=== PATIENT | male | born 1965 | race Caucasian/White ===

== ENCOUNTER → 2018-08-13 11:31 | Outpatient (CLI) | payer OTHER, MEDICAID, SELFPAY ==
--- NOTE | 2018-08-13 12:38 | DI.RAD.S_ITS ---
PROCEDURE: XR SHOULDER RT MIN 2V INDICATIONS: Right shoulder pain suspect osteoarthritis TECHNIQUE: 3 views of the shoulder were acquired. COMPARISON: None. FINDINGS: Bones: No fractures or dislocations. No suspicious bony lesions. Visualized ribs appear intact. Mild acromioclavicular joint and glenohumeral joint osteoarthritis is seen. Soft tissues: No suspicious soft tissue calcifications. IMPRESSION: Mild right shoulder joint osteoarthritis. Dictated by: Pascual Roa M.D. on 08/13/2018 at 14:30 Approved by: Pascual Roa M.D. on 08/13/2018 at 14:34
== END ==
PROVIDERS: Family Provider Physician Assistant; PCP Physician Assistant; Visit Provider Physician Assistant
DX: M19.011 Primary osteoarthritis, right shoulder (principal)
CPT/HCPCS: 73030

== ENCOUNTER 2019-02-18 11:15 | Outpatient (RCR) | payer OTHER, MEDICAID, SELFPAY ==
--- NOTE | 2018-09-29 10:30 | PT.OIE ---
Current Diagnoses Pain in right shoulder (09/29/18) Pain in left shoulder (09/29/18) Weakness (09/29/18) Other injury of muscle(s) and tendon(s) of the rotator cuff of right shoulder, initial encounter (09/29/18) Strain of muscle, fascia and tendon of long head of biceps, right arm, initial encounter (09/29/18) Past Medical History (Last Updated 09/29/18 @ 16:32 by Dona Morley, PT) Back pain (Acute) Carpal tunnel syndrome on both sides (Acute) Seizure (Acute) Past Surgical History (Last Updated 09/29/18 @ 16:32 by Dona Morley, PT) History of carpal tunnel release of both wrists (Acute) Provider Visit Care Team Role Provider Type Jessica Tuttle PA-C Attending Provider Advanced Database Technician Family Provider Primary Care Provider Specialty: Medical Address: [address] [place] [address], [facility] Email: [email or web address] Physical Therapy Initial Evaluation PT-OP-A Visit Information Start: 09/29/18 16:27 Freq: Status: Active Protocol: Document 09/29/18 10:30 DLM (Rec: 09/29/18 16:30 DLM [id number]) Out-Patient Physical Therapy Visit Information Visit Information Visit Type Initial Evaluation Visit Note 05/28 authorized Visit Start Time 10:30 Visit Stop Time 11:25 Total Visit Minutes 55 Visit Number 1 Number of FISH ROE TECHNICIAN Visits 0 Evaluation Information Evaluation Date 09/29/18 Precautions Precautions hx of back pain, bilateral carpal tunnel sx and seizures PT-OP-B Current Condition Start: 09/29/18 16:27 Freq: Status: Active Protocol: Document 09/29/18 10:30 DLM (Rec: 09/30/18 08:40 DLM [id number]) Current Condition History of Current Condition Onset Date gradual Current Complaints Bilateral shoulder pain with right worse than left History of Current Condition He reports sudden onset right shoulder pain and about two weeks later left shoulder pain . He has no known injury. The pain interferes with functional use of his arms. He has pain that affects his sleep. Prior Treatments and Tests x-rays showed mild arthritis Future Testing and Treatments Planned none reported Treatment Goals Patient/Caregiver Goals resolve his shoulder pain Prior Functional Status Baseline Function- ADL's Independent Baseline Function- Mobility Independent Baseline Function- Gait Independent without device, community distances Baseline Function- Work/School getting his bachelor degree online, desktop computer Baseline Function- Recreation/Hobbies Stretches for 45 min, 1 hr cardio workout, walking for 1. 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 Current Functional Impairments (Reported) Functional Limitations- ADL's Independent with pain in bilateral shoulders Functional Limitations- Mobility/Gait no changes reported Functional Limitations- Recreation/ pain with fencing especially Hobbies with reaching out motion Personal Factors Other Personal Factors That May Effect lost a lot of weight and Therapy/Recovery exercises now to keep the weight off PT-OP-C Subjective Start: 09/29/18 16:27 Freq: Status: Active Protocol: Document 09/29/18 10:30 DLM (Rec: 09/30/18 08:33 DL [id number]) Patient Questionnaires Quick Dash- Upper Extremity Quick Dash UE Score 50 Quick Dash UE Impairment 40 to 59% Impaired (Score 40- 59) OP-PT Pain Assessment Location Upper Posterior Back Intensity 6 Scale Used Numeric (1 - 10) Description Aching Frequency Frequent Posterior Neck Intensity 6 Scale Used Numeric (1 - 10) Description Aching Frequency Frequent Left Shoulder Intensity 6 Scale Used Numeric (1 - 10) Description Aching Frequency Constant Pain Aggravating Factors Activity Other Pain Aggravating Factors leaning on arm, sidelying, reaching up and back Pain Alleviating Factors Rest Right Shoulder Pain Location Details also around right scapula Intensity 6 Scale Used Numeric (1 - 10) Description Aching Frequency Constant Other Pain Aggravating Factors leaning on shoulder, sidelying , reaching arm up and back, fencing reach out Pain Alleviating Factors Rest Home Pain Medication Use Pain Medications Used Yes: Ibuprofen prescribed by physician Pain Behaviors Pain Behaviors Facial Grimacing Wincing Comments Pain Comments Right handed PT-OP-F Manual Assessment Start: 09/29/18 16:27 Freq: Status: Active Protocol: Document 09/29/18 10:30 DLM (Rec: 09/30/18 08:56 DL [id number]) Manual Assessments Soft Tissue Assessment Soft Tissue Mobility Assessment sub-occipital tightness PT-OP-H Neuro Start: 09/29/18 16:27 Freq: Status: Active Protocol: Document 09/29/18 10:30 DLM (Rec: 09/30/18 08:56 DLM [id number]) Sensation Evaluation Gross Sensation Gross Sensation WNL PT-OP-J Posture/Palpation/Skin Start: 09/29/18 16:27 Freq: Status: Active Protocol: Document 09/29/18 10:30 DLM (Rec: 09/30/18 08:47 DLM [id number]) Posture Evaluation Position Sitting Evaluation View Anterior Head/C-Spine Posture Forward Head Shoulder Posture (L) Rounded (R) Rounded Pelvis Posture Posterior Tilted Weight Distribution Balanced Palpation Assessment Location Three Palpation Location left shoulder area Palpation Findings Soft Tissue Tightness Tenderness Palpation Details mild tenderness right biceps tendon anterior shoulder, lateral bursa tenderness, tightness and tender left upper trap, mild tenderness left posterior shoulder Two Palpation Location Right biceps Palpation Findings Soft Tissue Tightness Tenderness Palpation Details tender with positive signs of tendonitis anterior shoulder, tightness with mass effect mid bicep, entire length of biceps tender to touch One Palpation Location Right shoulder area Palpation Findings Soft Tissue Tightness Tenderness Trigger Point Palpation Details tender AC joint, upper trap tender and tight, rhomboids tender and tight, scalenes tender PT-OP-K Range of Motion Start: 09/29/18 16:27 Freq: Status: Active Protocol: Document 09/29/18 10:30 DLM (Rec: 09/30/18 08:51 DLM [id number]) Cervical Spine Range of Motion Cervical Spine Active Percentage Testing Position Sitting Flexion 100 Extension 100 Rotation Left 75 Rotation Right 90 Lateral Flexion Left 50 Lateral Flexion Right 75 ROM Limitations Soft Tissue Tightness Comments no pain reported, only tightness Shoulder Goniometric Range of Motion Shoulder Measured in Degrees Right Active Shoulder ROM WFL Yes Testing Position Sitting Left Active Shoulder ROM WFL Yes Testing Position Sitting Shoulder ROM Limitations Shoulder ROM Limitations Pain Comments pain with right shoulder IR behind back, crepitus with left shoulder ER, positive for painful arc on right but negative on left PT-OP-L Special Tests Start: 09/29/18 16:27 Freq: Status: Active Protocol: Document 09/29/18 10:30 DLM (Rec: 09/30/18 08:53 DLM [id number]) Special Tests Shoulder Special Tests Drop Arm Rotator Cuff Test Results negative bilaterally Elevation Impingement Test Results positive on right, negative on left Apprehension Test Test Results negative bilaterally PT-OP-M Strength Start: 09/29/18 16:27 Freq: Status: Active Protocol: Document 09/29/18 10:30 DLM (Rec: 09/30/18 08:55 DLM [id number]) Shoulder Strength Shoulder Manual Muscle Testing Right Flexion 4 Good Extension 5 Normal Abduction (C5) 4 Good Adduction 5 Normal External Rotation 5 Normal Internal Rotation 5 Normal Reason Not Measured Pain Comments pain with resisted flexion and abduction Left Flexion 4+ Good+ Extension 5 Normal Abduction (C5) 5 Normal Adduction 5 Normal External Rotation 5 Normal Internal Rotation 5 Normal Comments pain with resisted flexion Elbow/Forearm Strength Elbow and Forearm Manual Muscle Testing Right Flexion (C6) 5 Normal Extension (C7) 5 Normal Reason Not Measured Pain Comments pain with resisted elbow flexion Left Flexion (C6) 5 Normal Extension (C7) 5 Normal Reason Not Measured Pain Comments pain with resisted elbow flexion PT-OP-Q Treatments Start: 09/29/18 16:27 Freq: Status: Active Protocol: Document 09/29/18 10:30 DLM (Rec: 09/30/18 08:58 DLM [id number]) Self-Care/Home Management Treatment Education Patient Education Home Exercise Program Caregiver Education his was present for evaluation Other Education stop biceps exercises at home, avoid painful shoulder motions, avoid activities with shoulder at 90 degrees of elevation to minimize impingement, ice shoulders to manage pain PT-OP-T Assessment and Plan Start: 09/29/18 16:27 Freq: Status: Active Protocol: Document 09/29/18 10:30 DLM (Rec: 09/30/18 10:33 DLM [id number]) Physical Therapy Assessment Rehab Potential Rehabilitation Potential Good Evaluation Complexity Number of Personal Factors/Comorbidities 3 or More Number of Body Systems Impaired 3 Clinical Presentation at Evaluation Evolving Impairments Impairments Activity Tolerance Functional Activities Pain Posture ROM Soft Tissue Mobility Strength Goals Four Impairment Impaired functional use of shoulders, Quick Dash=50 Short Term Goal (STG) Quick Dash score improvement to <25 STG Duration 4 weeks Nursing Services Manager Goal (LTG) Quick Dash score improvement to <10 LTG Duration 8 weeks Three Impairment Positive impingement signs right shoulder Short Term Goal (STG) Resolve impingement signs right shoulder STG Duration 6 weeks Mcc Goal (LTG) Demonstrate erect posture and improved postural awareness LTG Duration 8 weeks Two Impairment Impaired Strength Short Term Goal (STG) Increase his shoulder strength to at least 4+/5 without pain STG Duration 4 weeks Nursing Services Manager Goal (LTG) Increase his bilateral shoulder strength to 5/5 without pain LTG Duration 8 weeks One Impairment Pain of 6/10 Short Term Goal (STG) Decrease his shoulder pain to less than or equal to 3/10 STG Duration 4 weeks Mcc Goal (LTG) Decrease shoulder pain to 0/10 with normal use LTG Duration 8 weeks Assessment Summary Assessment Jerson presents with bilateral shoulder pain with clinical signs of strain/sprain with right worse than left. He shows impingement signs right shoulder as well as significant biceps tendonitis. Left shoulder is negative for impingement but shows clinical signs of bursitis and biceps tendonitis. He reports no known injury so I suspect repetitive use and arthritis may be contributing factors to his pain. He has an extensive home exercise routine that he routinely performs to help manage his weight and he started fencing about 8 weeks ago. He is a good candidate for skilled physical therapy to address his shoulder pain. Physical Therapy Plan Frequency and Duration Frequency of Treatment 2x/Week Duration of Treatment 8 weeks Plan of Care Start Date 09/29/18 Plan of Care End Date 11/24/18 Therapeutic Interventions Therapeutic Interventions Home Exercise Program Joint Mobilizations Manual Therapy Patient/Caregiver Education Self-Care/Home Management Soft Tissue Mobilization Taping Therapeutic Activities Therapeutic Exercises Modalities Cold Pack/Ice Massage Electric Stimulation Hot Packs Ultrasound Next Visit Focus/Plan Next Note Type Treatment Note Next Visit Plan Ultrasound trials, STM for right biceps, rotator cuff exercises, continue review of home exercise routine
--- NOTE | 2018-10-01 10:30 | PT.OTN ---
Current Diagnoses Pain in right shoulder (10/01/18) Pain in left shoulder (10/01/18) Physical Therapy Treatment Note PT-OP-A Visit Information Start: 09/29/18 16:27 Freq: Status: Active Protocol: Document 10/01/18 10:30 DLM (Rec: 10/05/18 08:08 DLM [id number]) Out-Patient Physical Therapy Visit Information Visit Information Visit Type Treatment Note Visit Note 06/16 Visit Start Time 10:30 Visit Stop Time 11:15 Total Visit Minutes 45 Visit Number 2 Number of VISUAL COORDINATOR Visits 0 Evaluation Information Evaluation Date 09/29/18 Precautions Precautions hx of back pain, bilateral carpal tunnel sx and seizures PT-OP-B Current Condition Start: 09/29/18 16:27 Freq: Status: Active Protocol: Document 09/29/18 10:30 DLM (Rec: 09/30/18 08:40 DLM [id number]) Current Condition History of Current Condition Onset Date gradual Current Complaints Bilateral shoulder pain with right worse than left History of Current Condition He reports sudden onset right shoulder pain and about two weeks later left shoulder pain . He has no known injury. The pain interferes with functional use of his arms. He has pain that affects his sleep. Prior Treatments and Tests x-rays showed mild arthritis Future Testing and Treatments Planned none reported Treatment Goals Patient/Caregiver Goals resolve his shoulder pain Prior Functional Status Baseline Function- ADL's Independent Baseline Function- Mobility Independent Baseline Function- Gait Independent without device, community distances Baseline Function- Work/School getting his bachelor degree online, desktop computer Baseline Function- Recreation/Hobbies Stretches for 45 min, 1 hr cardio workout, walking for 1. 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 Current Functional Impairments (Reported) Functional Limitations- ADL's Independent with pain in bilateral shoulders Functional Limitations- Mobility/Gait no changes reported Functional Limitations- Recreation/ pain with fencing especially Hobbies with reaching out motion Personal Factors Other Personal Factors That May Effect lost a lot of weight and Therapy/Recovery exercises now to keep the weight off PT-OP-C Subjective Start: 09/29/18 16:27 Freq: Status: Active Protocol: Document 10/01/18 10:30 DLM (Rec: 10/05/18 08:09 DLM [id number]) OP-PT Subjective Patient Comments Patient Comments He brought his current home exercises Patient Reported Progress Same PT-OP-F Manual Assessment Start: 09/29/18 16:27 Freq: Status: Active Protocol: Document 09/29/18 10:30 DLM (Rec: 09/30/18 08:56 DLM [id number]) Manual Assessments Soft Tissue Assessment Soft Tissue Mobility Assessment sub-occipital tightness PT-OP-H Neuro Start: 09/29/18 16:27 Freq: Status: Active Protocol: Document 09/29/18 10:30 DLM (Rec: 09/30/18 08:56 DLM [id number]) Sensation Evaluation Gross Sensation Gross Sensation WNL PT-OP-J Posture/Palpation/Skin Start: 09/29/18 16:27 Freq: Status: Active Protocol: Document 09/29/18 10:30 DLM (Rec: 09/30/18 08:47 DLM [id number]) Posture Evaluation Position Sitting Evaluation View Anterior Head/C-Spine Posture Forward Head Shoulder Posture (L) Rounded (R) Rounded Pelvis Posture Posterior Tilted Weight Distribution Balanced Palpation Assessment Location Three Palpation Location left shoulder area Palpation Findings Soft Tissue Tightness Tenderness Palpation Details mild tenderness right biceps tendon anterior shoulder, lateral bursa tenderness, tightness and tender left upper trap, mild tenderness left posterior shoulder Two Palpation Location Right biceps Palpation Findings Soft Tissue Tightness Tenderness Palpation Details tender with positive signs of tendonitis anterior shoulder, tightness with mass effect mid bicep, entire length of biceps tender to touch One Palpation Location Right shoulder area Palpation Findings Soft Tissue Tightness Tenderness Trigger Point Palpation Details tender AC joint, upper trap tender and tight, rhomboids tender and tight, scalenes tender PT-OP-K Range of Motion Start: 09/29/18 16:27 Freq: Status: Active Protocol: Document 09/29/18 10:30 DLM (Rec: 09/30/18 08:51 DLM [id number]) Cervical Spine Range of Motion Cervical Spine Active Percentage Testing Position Sitting Flexion 100 Extension 100 Rotation Left 75 Rotation Right 90 Lateral Flexion Left 50 Lateral Flexion Right 75 ROM Limitations Soft Tissue Tightness Comments no pain reported, only tightness Shoulder Goniometric Range of Motion Shoulder Measured in Degrees Right Active Shoulder ROM WFL Yes Testing Position Sitting Left Active Shoulder ROM WFL Yes Testing Position Sitting Shoulder ROM Limitations Shoulder ROM Limitations Pain Comments pain with right shoulder IR behind back, crepitus with left shoulder ER, positive for painful arc on right but negative on left PT-OP-L Special Tests Start: 09/29/18 16:27 Freq: Status: Active Protocol: Document 09/29/18 10:30 DLM (Rec: 09/30/18 08:53 DLM [id number]) Special Tests Shoulder Special Tests Drop Arm Rotator Cuff Test Results negative bilaterally Elevation Impingement Test Results positive on right, negative on left Apprehension Test Test Results negative bilaterally PT-OP-M Strength Start: 09/29/18 16:27 Freq: Status: Active Protocol: Document 09/29/18 10:30 DLM (Rec: 09/30/18 08:55 DLM [id number]) Shoulder Strength Shoulder Manual Muscle Testing Right Flexion 4 Good Extension 5 Normal Abduction (C5) 4 Good Adduction 5 Normal External Rotation 5 Normal Internal Rotation 5 Normal Reason Not Measured Pain Comments pain with resisted flexion and abduction Left Flexion 4+ Good+ Extension 5 Normal Abduction (C5) 5 Normal Adduction 5 Normal External Rotation 5 Normal Internal Rotation 5 Normal Comments pain with resisted flexion Elbow/Forearm Strength Elbow and Forearm Manual Muscle Testing Right Flexion (C6) 5 Normal Extension (C7) 5 Normal Reason Not Measured Pain Comments pain with resisted elbow flexion Left Flexion (C6) 5 Normal Extension (C7) 5 Normal Reason Not Measured Pain Comments pain with resisted elbow flexion PT-OP-Q Treatments Start: 09/29/18 16:27 Freq: Status: Active Protocol: Document 10/01/18 10:30 DLM (Rec: 10/05/18 08:15 DLM [id number]) Therapeutic Exercises Supine Exercises 1 Supine Exercise Name Foam roll postural stretching Resistance passive Comments UE's at sides, T and over- head Standing Exercises 4 Standing Exercise Name Shoulder IR Side bilateral Resistance L2 exercise band Reps/Minutes 15 reps each side Comments one side at a time 3 Standing Exercise Name Shoulder ER Side bilateral Resistance L2 exercise band Reps/Minutes 15 reps each Comments one side at a time 2 Standing Exercise Name Rows Side bilateral Resistance L2 exercise band Reps/Minutes 15 reps 1 Standing Exercise Name shoulder extension Side bilateral Resistance L2 exercise band Reps/Minutes x 15 reps Self-Care/Home Management Treatment Education Patient Education Home Exercise Program Other Education reviewed his two binders of home exercises (stretching and strengthening). Requested pt avoid exercises that place shoulder at 90 degrees and avoid biceps exercises for now . Pt will follow-up with fencing sustainability coach for modifications of activities to manage his pain. PT-OP-R Modalities Start: 09/29/18 16:27 Freq: Status: Active Protocol: Document 10/01/18 10:30 DLM (Rec: 10/05/18 08:10 DLM [id number]) Ultrasound Therapy Treatment Right Shoulder Treatment Duration (minutes) 5 Patient Position Sitting Coupling Medium Ultrasound Gel Applicator Size (cm2) 5 Mode Setting Continuous Intensity Setting (w/cm2) 1.3 Left Shoulder Treatment Duration (minutes) 5 Patient Position Sitting Coupling Medium Ultrasound Gel Applicator Size (cm2) 5 Mode Setting Continuous Intensity Setting (w/cm2) 1.3 PT-OP-T Assessment and Plan Start: 09/29/18 16:27 Freq: Status: Active Protocol: Document 10/01/18 10:30 DLM (Rec: 10/05/18 15:06 DLM [id number]) Physical Therapy Assessment Goals Four Impairment Impaired functional use of shoulders, Quick Dash=50 Short Term Goal (STG) Quick Dash score improvement to <25 STG Duration 4 weeks Intermediate Goal (LTG) Quick Dash score improvement to <10 LTG Duration 8 weeks Three Impairment Positive impingement signs right shoulder Short Term Goal (STG) Resolve impingement signs right shoulder STG Duration 6 weeks Intermediate Goal (LTG) Demonstrate erect posture and improved postural awareness LTG Duration 8 weeks Two Impairment Impaired Strength Short Term Goal (STG) Increase his shoulder strength to at least 4+/5 without pain STG Duration 4 weeks Software Tools Engineer Goal (LTG) Increase his bilateral shoulder strength to 5/5 without pain LTG Duration 8 weeks One Impairment Pain of 6/10 Short Term Goal (STG) Decrease his shoulder pain to less than or equal to 3/10 STG Duration 4 weeks Intermediate Goal (LTG) Decrease shoulder pain to 0/10 with normal use LTG Duration 8 weeks Assessment Summary Assessment He tolerated treatment well this visit. No increased pain with his exercises. Improved posture with stretching. Pt has an extensive prior HEP with many exercises using UE musculature. Recommending pt avoid impingement positions and rest shoulders as he is able. Physical Therapy Plan Frequency and Duration Frequency of Treatment 2x/Week Duration of Treatment 8 weeks Plan of Care Start Date 09/29/18 Plan of Care End Date 11/24/18 Therapeutic Interventions Therapeutic Interventions Home Exercise Program Joint Mobilizations Manual Therapy Patient/Caregiver Education Self-Care/Home Management Soft Tissue Mobilization Taping Therapeutic Activities Therapeutic Exercises Modalities Cold Pack/Ice Massage Electric Stimulation Hot Packs Ultrasound Next Visit Focus/Plan Next Note Type Treatment Note Next Visit Plan start STM, assess response to US, written HEP
--- NOTE | 2018-10-06 10:30 | PT.OTN ---
Current Diagnoses Pain in right shoulder (10/06/18) Pain in left shoulder (10/06/18) Physical Therapy Treatment Note PT-OP-A Visit Information Start: 09/29/18 16:27 Freq: Status: Active Protocol: Document 10/06/18 10:30 DLM (Rec: 10/06/18 17:45 DLM [id number]) Out-Patient Physical Therapy Visit Information Visit Information Visit Type Treatment Note Visit Note 07/14 Visit Start Time 10:30 Visit Stop Time 11:15 Total Visit Minutes 45 Visit Number 3 Number of WIRE BOUND BOX MACHINE HELPER Visits 0 Evaluation Information Evaluation Date 09/29/18 Precautions Precautions hx of back pain, bilateral carpal tunnel sx and seizures PT-OP-B Current Condition Start: 09/29/18 16:27 Freq: Status: Active Protocol: Document 09/29/18 10:30 DLM (Rec: 09/30/18 08:40 DLM [id number]) Current Condition History of Current Condition Onset Date gradual Current Complaints Bilateral shoulder pain with right worse than left History of Current Condition He reports sudden onset right shoulder pain and about two weeks later left shoulder pain . He has no known injury. The pain interferes with functional use of his arms. He has pain that affects his sleep. Prior Treatments and Tests x-rays showed mild arthritis Future Testing and Treatments Planned none reported Treatment Goals Patient/Caregiver Goals resolve his shoulder pain Prior Functional Status Baseline Function- ADL's Independent Baseline Function- Mobility Independent Baseline Function- Gait Independent without device, community distances Baseline Function- Work/School getting his bachelor degree online, desktop computer Baseline Function- Recreation/Hobbies Stretches for 45 min, 1 hr cardio workout, walking for 1. 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 Current Functional Impairments (Reported) Functional Limitations- ADL's Independent with pain in bilateral shoulders Functional Limitations- Mobility/Gait no changes reported Functional Limitations- Recreation/ pain with fencing especially Hobbies with reaching out motion Personal Factors Other Personal Factors That May Effect lost a lot of weight and Therapy/Recovery exercises now to keep the weight off PT-OP-C Subjective Start: 09/29/18 16:27 Freq: Status: Active Protocol: Document 10/06/18 10:30 DLM (Rec: 10/06/18 17:45 DLM [id number]) OP-PT Subjective Patient Comments Patient Comments He will only be working on his footwork in fencing until his shoulder is better. He has been modifying his exercises at home to avoid painful positions with his shoulder. His pain is better. He has been icing his shoulders at home. Patient Reported Progress Improving OP-PT Pain Assessment Location Left Shoulder Pain Location Details at rest Intensity 0 Scale Used Numeric (1 - 10) Right Shoulder Pain Location Details at rest Intensity 0 Scale Used Numeric (1 - 10) Other Pain Aggravating Factors driving position Home Pain Medication Use Pain Medications Used Yes: Ibuprofen PT-OP-F Manual Assessment Start: 09/29/18 16:27 Freq: Status: Active Protocol: Document 09/29/18 10:30 DLM (Rec: 09/30/18 08:56 DLM [id number]) Manual Assessments Soft Tissue Assessment Soft Tissue Mobility Assessment sub-occipital tightness PT-OP-H Neuro Start: 09/29/18 16:27 Freq: Status: Active Protocol: Document 09/29/18 10:30 DLM (Rec: 09/30/18 08:56 DLM [id number]) Sensation Evaluation Gross Sensation Gross Sensation WNL PT-OP-J Posture/Palpation/Skin Start: 09/29/18 16:27 Freq: Status: Active Protocol: Document 09/29/18 10:30 DLM (Rec: 09/30/18 08:47 DLM [id number]) Posture Evaluation Position Sitting Evaluation View Anterior Head/C-Spine Posture Forward Head Shoulder Posture (L) Rounded (R) Rounded Pelvis Posture Posterior Tilted Weight Distribution Balanced Palpation Assessment Location Three Palpation Location left shoulder area Palpation Findings Soft Tissue Tightness Tenderness Palpation Details mild tenderness right biceps tendon anterior shoulder, lateral bursa tenderness, tightness and tender left upper trap, mild tenderness left posterior shoulder Two Palpation Location Right biceps Palpation Findings Soft Tissue Tightness Tenderness Palpation Details tender with positive signs of tendonitis anterior shoulder, tightness with mass effect mid bicep, entire length of biceps tender to touch One Palpation Location Right shoulder area Palpation Findings Soft Tissue Tightness Tenderness Trigger Point Palpation Details tender AC joint, upper trap tender and tight, rhomboids tender and tight, scalenes tender PT-OP-K Range of Motion Start: 09/29/18 16:27 Freq: Status: Active Protocol: Document 09/29/18 10:30 DLM (Rec: 09/30/18 08:51 DLM [id number]) Cervical Spine Range of Motion Cervical Spine Active Percentage Testing Position Sitting Flexion 100 Extension 100 Rotation Left 75 Rotation Right 90 Lateral Flexion Left 50 Lateral Flexion Right 75 ROM Limitations Soft Tissue Tightness Comments no pain reported, only tightness Shoulder Goniometric Range of Motion Shoulder Measured in Degrees Right Active Shoulder ROM WFL Yes Testing Position Sitting Left Active Shoulder ROM WFL Yes Testing Position Sitting Shoulder ROM Limitations Shoulder ROM Limitations Pain Comments pain with right shoulder IR behind back, crepitus with left shoulder ER, positive for painful arc on right but negative on left PT-OP-L Special Tests Start: 09/29/18 16:27 Freq: Status: Active Protocol: Document 09/29/18 10:30 DLM (Rec: 09/30/18 08:53 DLM [id number]) Special Tests Shoulder Special Tests Drop Arm Rotator Cuff Test Results negative bilaterally Elevation Impingement Test Results positive on right, negative on left Apprehension Test Test Results negative bilaterally PT-OP-M Strength Start: 09/29/18 16:27 Freq: Status: Active Protocol: Document 09/29/18 10:30 DLM (Rec: 09/30/18 08:55 DLM [id number]) Shoulder Strength Shoulder Manual Muscle Testing Right Flexion 4 Good Extension 5 Normal Abduction (C5) 4 Good Adduction 5 Normal External Rotation 5 Normal Internal Rotation 5 Normal Reason Not Measured Pain Comments pain with resisted flexion and abduction Left Flexion 4+ Good+ Extension 5 Normal Abduction (C5) 5 Normal Adduction 5 Normal External Rotation 5 Normal Internal Rotation 5 Normal Comments pain with resisted flexion Elbow/Forearm Strength Elbow and Forearm Manual Muscle Testing Right Flexion (C6) 5 Normal Extension (C7) 5 Normal Reason Not Measured Pain Comments pain with resisted elbow flexion Left Flexion (C6) 5 Normal Extension (C7) 5 Normal Reason Not Measured Pain Comments pain with resisted elbow flexion PT-OP-Q Treatments Start: 09/29/18 16:27 Freq: Status: Active Protocol: Document 10/06/18 10:30 DLM (Rec: 10/06/18 17:45 DLM [id number]) Therapeutic Exercises Supine Exercises 1 Supine Exercise Name Foam roll postural stretching Resistance passive Comments UE's at sides, T and over- head Standing Exercises 4 Standing Exercise Name Shoulder IR Side bilateral Resistance L2 exercise band Reps/Minutes 15 reps each side Comments one side at a time 3 Standing Exercise Name Shoulder ER Side bilateral Resistance L2 exercise band Reps/Minutes 15 reps each Comments one side at a time 2 Standing Exercise Name Rows Side bilateral Resistance L2 exercise band Reps/Minutes 15 reps Comments verbal cues for positioning 1 Standing Exercise Name shoulder extension Side bilateral Resistance L2 exercise band Reps/Minutes x 15 reps Manual Therapy Treatment Soft Tissue Mobilization 2 Body Location left shoulder area Mobilization Type Cross-Friction Myofascial Release Strumming Sustained Pressure Intensity/Depth Moderate Body Position Supine Comments including UT and pects 1 Body Location right shoulder area Mobilization Type Cross-Friction Myofascial Release Strumming Sustained Pressure Intensity/Depth Moderate Body Position Supine Comments including UT and pects, no pain in muscle belly of biceps today Joint Mobilizations 1 Joint GH joint, bilateral Direction post and inferior Grade III Body Position Supine Comments grade II-III Self-Care/Home Management Treatment Education Patient Education Home Exercise Program Pain Management Other Education provided written HEP of theraband exercises except rows PT-OP-R Modalities Start: 09/29/18 16:27 Freq: Status: Active Protocol: Document 10/01/18 10:30 DLM (Rec: 10/05/18 08:10 DLM [id number]) Ultrasound Therapy Treatment Right Shoulder Treatment Duration (minutes) 5 Patient Position Sitting Coupling Medium Ultrasound Gel Applicator Size (cm2) 5 Mode Setting Continuous Intensity Setting (w/cm2) 1.3 Left Shoulder Treatment Duration (minutes) 5 Patient Position Sitting Coupling Medium Ultrasound Gel Applicator Size (cm2) 5 Mode Setting Continuous Intensity Setting (w/cm2) 1.3 PT-OP-T Assessment and Plan Start: 09/29/18 16:27 Freq: Status: Active Protocol: Document 10/06/18 10:30 DLM (Rec: 10/06/18 17:45 DLM [id number]) Physical Therapy Assessment Goals Four Impairment Impaired functional use of shoulders, Quick Dash=50 Short Term Goal (STG) Quick Dash score improvement to <25 STG Duration 4 weeks Penitentiary Goal (LTG) Quick Dash score improvement to <10 LTG Duration 8 weeks Three Impairment Positive impingement signs right shoulder Short Term Goal (STG) Resolve impingement signs right shoulder STG Duration 6 weeks Custodian Manager Goal (LTG) Demonstrate erect posture and improved postural awareness LTG Duration 8 weeks Two Impairment Impaired Strength Short Term Goal (STG) Increase his shoulder strength to at least 4+/5 without pain STG Duration 4 weeks Custodian Manager Goal (LTG) Increase his bilateral shoulder strength to 5/5 without pain LTG Duration 8 weeks One Impairment Pain of 6/10 Short Term Goal (STG) Decrease his shoulder pain to less than or equal to 3/10 STG Duration 4 weeks Penitentiary Goal (LTG) Decrease shoulder pain to 0/10 with normal use LTG Duration 8 weeks Progress Towards Goals Progress Towards Goals Progressing Toward Goals Assessment Summary Assessment He shows good progress in bilateral shoulders today. Still positive for impingement in right shoulder. Bursitis symptoms have resolved in left . Biceps tendonitis in right is improving. He is tolerating his exerices well. He feels the [place] helped. He has been modifying his computer position and exercises at home . Physical Therapy Plan Frequency and Duration Frequency of Treatment 2x/Week Duration of Treatment 8 weeks Plan of Care Start Date 09/29/18 Plan of Care End Date 11/24/18 Therapeutic Interventions Therapeutic Interventions Home Exercise Program Joint Mobilizations Manual Therapy Patient/Caregiver Education Self-Care/Home Management Soft Tissue Mobilization Taping Therapeutic Activities Therapeutic Exercises Modalities Cold Pack/Ice Massage Electric Stimulation Hot Packs Ultrasound Next Visit Focus/Plan Next Note Type Treatment Note Next Visit Plan scapular retraction exercises in prone, ER strengthening in SL
--- NOTE | 2018-10-08 10:30 | PT.OTN ---
Current Diagnoses Pain in right shoulder (10/08/18) Pain in left shoulder (10/08/18) Physical Therapy Treatment Note PT-OP-A Visit Information Start: 09/29/18 16:27 Freq: Status: Active Protocol: Document 10/08/18 10:30 DLM (Rec: 10/08/18 19:59 DLM [id number]) Out-Patient Physical Therapy Visit Information Visit Information Visit Type Treatment Note Visit Start Time 10:30 Visit Stop Time 11:16 Total Visit Minutes 46 Visit Number 4 Number of FLARER Visits 0 Evaluation Information Evaluation Date 09/29/18 Precautions Precautions hx of back pain, bilateral carpal tunnel sx and seizures PT-OP-B Current Condition Start: 09/29/18 16:27 Freq: Status: Active Protocol: Document 09/29/18 10:30 DLM (Rec: 09/30/18 08:40 DLM [id number]) Current Condition History of Current Condition Onset Date gradual Current Complaints Bilateral shoulder pain with right worse than left History of Current Condition He reports sudden onset right shoulder pain and about two weeks later left shoulder pain . He has no known injury. The pain interferes with functional use of his arms. He has pain that affects his sleep. Prior Treatments and Tests x-rays showed mild arthritis Future Testing and Treatments Planned none reported Treatment Goals Patient/Caregiver Goals resolve his shoulder pain Prior Functional Status Baseline Function- ADL's Independent Baseline Function- Mobility Independent Baseline Function- Gait Independent without device, community distances Baseline Function- Work/School getting his bachelor degree online, desktop computer Baseline Function- Recreation/Hobbies Stretches for 45 min, 1 hr cardio workout, walking for 1. 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 Current Functional Impairments (Reported) Functional Limitations- ADL's Independent with pain in bilateral shoulders Functional Limitations- Mobility/Gait no changes reported Functional Limitations- Recreation/ pain with fencing especially Hobbies with reaching out motion Personal Factors Other Personal Factors That May Effect lost a lot of weight and Therapy/Recovery exercises now to keep the weight off PT-OP-C Subjective Start: 09/29/18 16:27 Freq: Status: Active Protocol: Document 10/08/18 10:30 DLM (Rec: 10/08/18 19:59 DLM [id number]) OP-PT Subjective Patient Comments Patient Comments He mowed the lawn yesturday. He will miss his treatment on Friday due to going out of town. He reports doing well with his exercises at home. He c/o right biceps pain since mowing. Patient Reported Progress Improving PT-OP-F Manual Assessment Start: 09/29/18 16:27 Freq: Status: Active Protocol: Document 09/29/18 10:30 DLM (Rec: 09/30/18 08:56 DLM [id number]) Manual Assessments Soft Tissue Assessment Soft Tissue Mobility Assessment sub-occipital tightness PT-OP-H Neuro Start: 09/29/18 16:27 Freq: Status: Active Protocol: Document 09/29/18 10:30 DLM (Rec: 09/30/18 08:56 DLM [id number]) Sensation Evaluation Gross Sensation Gross Sensation WNL PT-OP-J Posture/Palpation/Skin Start: 09/29/18 16:27 Freq: Status: Active Protocol: Document 09/29/18 10:30 DLM (Rec: 09/30/18 08:47 DLM [id number]) Posture Evaluation Position Sitting Evaluation View Anterior Head/C-Spine Posture Forward Head Shoulder Posture (L) Rounded (R) Rounded Pelvis Posture Posterior Tilted Weight Distribution Balanced Palpation Assessment Location Three Palpation Location left shoulder area Palpation Findings Soft Tissue Tightness Tenderness Palpation Details mild tenderness right biceps tendon anterior shoulder, lateral bursa tenderness, tightness and tender left upper trap, mild tenderness left posterior shoulder Two Palpation Location Right biceps Palpation Findings Soft Tissue Tightness Tenderness Palpation Details tender with positive signs of tendonitis anterior shoulder, tightness with mass effect mid bicep, entire length of biceps tender to touch One Palpation Location Right shoulder area Palpation Findings Soft Tissue Tightness Tenderness Trigger Point Palpation Details tender AC joint, upper trap tender and tight, rhomboids tender and tight, scalenes tender PT-OP-K Range of Motion Start: 09/29/18 16:27 Freq: Status: Active Protocol: Document 09/29/18 10:30 DLM (Rec: 09/30/18 08:51 DLM [id number]) Cervical Spine Range of Motion Cervical Spine Active Percentage Testing Position Sitting Flexion 100 Extension 100 Rotation Left 75 Rotation Right 90 Lateral Flexion Left 50 Lateral Flexion Right 75 ROM Limitations Soft Tissue Tightness Comments no pain reported, only tightness Shoulder Goniometric Range of Motion Shoulder Measured in Degrees Right Active Shoulder ROM WFL Yes Testing Position Sitting Left Active Shoulder ROM WFL Yes Testing Position Sitting Shoulder ROM Limitations Shoulder ROM Limitations Pain Comments pain with right shoulder IR behind back, crepitus with left shoulder ER, positive for painful arc on right but negative on left PT-OP-L Special Tests Start: 09/29/18 16:27 Freq: Status: Active Protocol: Document 09/29/18 10:30 DLM (Rec: 09/30/18 08:53 DLM [id number]) Special Tests Shoulder Special Tests Drop Arm Rotator Cuff Test Results negative bilaterally Elevation Impingement Test Results positive on right, negative on left Apprehension Test Test Results negative bilaterally PT-OP-M Strength Start: 09/29/18 16:27 Freq: Status: Active Protocol: Document 09/29/18 10:30 DLM (Rec: 09/30/18 08:55 DLM [id number]) Shoulder Strength Shoulder Manual Muscle Testing Right Flexion 4 Good Extension 5 Normal Abduction (C5) 4 Good Adduction 5 Normal External Rotation 5 Normal Internal Rotation 5 Normal Reason Not Measured Pain Comments pain with resisted flexion and abduction Left Flexion 4+ Good+ Extension 5 Normal Abduction (C5) 5 Normal Adduction 5 Normal External Rotation 5 Normal Internal Rotation 5 Normal Comments pain with resisted flexion Elbow/Forearm Strength Elbow and Forearm Manual Muscle Testing Right Flexion (C6) 5 Normal Extension (C7) 5 Normal Reason Not Measured Pain Comments pain with resisted elbow flexion Left Flexion (C6) 5 Normal Extension (C7) 5 Normal Reason Not Measured Pain Comments pain with resisted elbow flexion PT-OP-Q Treatments Start: 09/29/18 16:27 Freq: Status: Active Protocol: Document 10/08/18 10:30 DLM (Rec: 10/08/18 19:59 DLM [id number]) Therapeutic Exercises Supine Exercises 1 Supine Exercise Name Foam roll postural stretching Resistance passive Comments UE's at sides, T and over- head Standing Exercises 5 Standing Exercise Name Biceps stretch Side right Reps/Minutes 30 sec hold x 2 reps Comments arm on wall and turn body 4 Standing Exercise Name Shoulder IR Side bilateral Resistance L2 exercise band Reps/Minutes 15 reps each side Comments one side at a time 3 Standing Exercise Name Shoulder ER Side bilateral Resistance L2 exercise band Reps/Minutes 15 reps each Comments modified ROM to decrease biceps symptoms 2 Standing Exercise Name Rows Side bilateral Resistance L2 exercise band Reps/Minutes 15 reps Comments verbal cues for positioning 1 Standing Exercise Name shoulder extension Side bilateral Resistance L2 exercise band Reps/Minutes x 15 reps PT-OP-R Modalities Start: 09/29/18 16:27 Freq: Status: Active Protocol: Document 10/08/18 10:30 DLM (Rec: 10/08/18 19:59 DLM [id number]) Ultrasound Therapy Treatment Right Shoulder Treatment Duration (minutes) 8 Patient Position Sitting Coupling Medium Ultrasound Gel Applicator Size (cm2) 10 Mode Setting Continuous Intensity Setting (w/cm2) 1.3 Left Shoulder Treatment Duration (minutes) 7 Patient Position Sitting Coupling Medium Ultrasound Gel Applicator Size (cm2) 10 Mode Setting Continuous Intensity Setting (w/cm2) 1.3 PT-OP-T Assessment and Plan Start: 09/29/18 16:27 Freq: Status: Active Protocol: Document 10/08/18 10:30 DLM (Rec: 10/08/18 19:59 DLM [id number]) Physical Therapy Assessment Goals Four Impairment Impaired functional use of shoulders, Quick Dash=50 Short Term Goal (STG) Quick Dash score improvement to <25 STG Duration 4 weeks Senior Care Goal (LTG) Quick Dash score improvement to <10 LTG Duration 8 weeks Three Impairment Positive impingement signs right shoulder Short Term Goal (STG) Resolve impingement signs right shoulder STG Duration 6 weeks Senior Care Goal (LTG) Demonstrate erect posture and improved postural awareness LTG Duration 8 weeks Two Impairment Impaired Strength Short Term Goal (STG) Increase his shoulder strength to at least 4+/5 without pain STG Duration 4 weeks Senior Care Goal (LTG) Increase his bilateral shoulder strength to 5/5 without pain LTG Duration 8 weeks One Impairment Pain of 6/10 Short Term Goal (STG) Decrease his shoulder pain to less than or equal to 3/10 STG Duration 4 weeks Concreting Supervisor Goal (LTG) Decrease shoulder pain to 0/10 with normal use LTG Duration 8 weeks Progress Towards Goals Progress Towards Goals Progressing Toward Goals Assessment Summary Assessment He tolerated treatment well today but muscle fatigued noted with exercises. Did not advance exercises today due to that fatigue which may be related to mowing the lawn. Increased right biceps tightness since mowing. He feels the [place] helps the pain. He plans to be out of town next week. Physical Therapy Plan Frequency and Duration Frequency of Treatment 2x/Week Duration of Treatment 8 weeks Plan of Care Start Date 09/29/18 Plan of Care End Date 11/24/18 Therapeutic Interventions Therapeutic Interventions Home Exercise Program Joint Mobilizations Manual Therapy Patient/Caregiver Education Self-Care/Home Management Soft Tissue Mobilization Taping Therapeutic Activities Therapeutic Exercises Modalities Cold Pack/Ice Massage Electric Stimulation Hot Packs Ultrasound Next Visit Focus/Plan Next Note Type Treatment Note Next Visit Plan scapular retraction exercises in prone, ER strengthening in SL
--- NOTE | 2018-10-15 10:36 | PT.OTN ---
Current Diagnoses Pain in right shoulder (10/15/18) Pain in left shoulder (10/15/18) Physical Therapy Treatment Note PT-OP-A Visit Information Start: 09/29/18 16:27 Freq: Status: Active Protocol: Document 10/15/18 10:36 DLM (Rec: 10/15/18 17:41 DLM [id number]) Out-Patient Physical Therapy Visit Information Visit Information Visit Type Treatment Note Visit Start Time 10:36 Visit Stop Time 11:20 Total Visit Minutes 44 Visit Number 5 Number of DOCTOR OF VETERINARY MEDICINE Visits 0 Evaluation Information Evaluation Date 09/29/18 Precautions Precautions hx of back pain, bilateral carpal tunnel sx and seizures PT-OP-B Current Condition Start: 09/29/18 16:27 Freq: Status: Active Protocol: Document 09/29/18 10:30 DLM (Rec: 09/30/18 08:40 DLM [id number]) Current Condition History of Current Condition Onset Date gradual Current Complaints Bilateral shoulder pain with right worse than left History of Current Condition He reports sudden onset right shoulder pain and about two weeks later left shoulder pain . He has no known injury. The pain interferes with functional use of his arms. He has pain that affects his sleep. Prior Treatments and Tests x-rays showed mild arthritis Future Testing and Treatments Planned none reported Treatment Goals Patient/Caregiver Goals resolve his shoulder pain Prior Functional Status Baseline Function- ADL's Independent Baseline Function- Mobility Independent Baseline Function- Gait Independent without device, community distances Baseline Function- Work/School getting his bachelor degree online, desktop computer Baseline Function- Recreation/Hobbies Stretches for 45 min, 1 hr cardio workout, walking for 1. 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 Current Functional Impairments (Reported) Functional Limitations- ADL's Independent with pain in bilateral shoulders Functional Limitations- Mobility/Gait no changes reported Functional Limitations- Recreation/ pain with fencing especially Hobbies with reaching out motion Personal Factors Other Personal Factors That May Effect lost a lot of weight and Therapy/Recovery exercises now to keep the weight off PT-OP-C Subjective Start: 09/29/18 16:27 Freq: Status: Active Protocol: Document 10/08/18 10:30 DLM (Rec: 10/08/18 19:59 DLM [id number]) OP-PT Subjective Patient Comments Patient Comments He mowed the lawn yesturday. He will miss his treatment on Friday due to going out of town. He reports doing well with his exercises at home. He c/o right biceps pain since mowing. Patient Reported Progress Improving PT-OP-F Manual Assessment Start: 09/29/18 16:27 Freq: Status: Active Protocol: Document 09/29/18 10:30 DLM (Rec: 09/30/18 08:56 DLM [id number]) Manual Assessments Soft Tissue Assessment Soft Tissue Mobility Assessment sub-occipital tightness PT-OP-H Neuro Start: 09/29/18 16:27 Freq: Status: Active Protocol: Document 09/29/18 10:30 DLM (Rec: 09/30/18 08:56 DLM [id number]) Sensation Evaluation Gross Sensation Gross Sensation WNL PT-OP-J Posture/Palpation/Skin Start: 09/29/18 16:27 Freq: Status: Active Protocol: Document 09/29/18 10:30 DLM (Rec: 09/30/18 08:47 DLM [id number]) Posture Evaluation Position Sitting Evaluation View Anterior Head/C-Spine Posture Forward Head Shoulder Posture (L) Rounded (R) Rounded Pelvis Posture Posterior Tilted Weight Distribution Balanced Palpation Assessment Location Three Palpation Location left shoulder area Palpation Findings Soft Tissue Tightness Tenderness Palpation Details mild tenderness right biceps tendon anterior shoulder, lateral bursa tenderness, tightness and tender left upper trap, mild tenderness left posterior shoulder Two Palpation Location Right biceps Palpation Findings Soft Tissue Tightness Tenderness Palpation Details tender with positive signs of tendonitis anterior shoulder, tightness with mass effect mid bicep, entire length of biceps tender to touch One Palpation Location Right shoulder area Palpation Findings Soft Tissue Tightness Tenderness Trigger Point Palpation Details tender AC joint, upper trap tender and tight, rhomboids tender and tight, scalenes tender PT-OP-K Range of Motion Start: 09/29/18 16:27 Freq: Status: Active Protocol: Document 09/29/18 10:30 DLM (Rec: 09/30/18 08:51 DLM [id number]) Cervical Spine Range of Motion Cervical Spine Active Percentage Testing Position Sitting Flexion 100 Extension 100 Rotation Left 75 Rotation Right 90 Lateral Flexion Left 50 Lateral Flexion Right 75 ROM Limitations Soft Tissue Tightness Comments no pain reported, only tightness Shoulder Goniometric Range of Motion Shoulder Measured in Degrees Right Active Shoulder ROM WFL Yes Testing Position Sitting Left Active Shoulder ROM WFL Yes Testing Position Sitting Shoulder ROM Limitations Shoulder ROM Limitations Pain Comments pain with right shoulder IR behind back, crepitus with left shoulder ER, positive for painful arc on right but negative on left PT-OP-L Special Tests Start: 09/29/18 16:27 Freq: Status: Active Protocol: Document 10/15/18 10:36 DLM (Rec: 10/15/18 17:41 DL [id number]) Special Tests Shoulder Special Tests Elevation Impingement Test Results negative Comments bilateral PT-OP-M Strength Start: 09/29/18 16:27 Freq: Status: Active Protocol: Document 09/29/18 10:30 DLM (Rec: 09/30/18 08:55 DLM [id number]) Shoulder Strength Shoulder Manual Muscle Testing Right Flexion 4 Good Extension 5 Normal Abduction (C5) 4 Good Adduction 5 Normal External Rotation 5 Normal Internal Rotation 5 Normal Reason Not Measured Pain Comments pain with resisted flexion and abduction Left Flexion 4+ Good+ Extension 5 Normal Abduction (C5) 5 Normal Adduction 5 Normal External Rotation 5 Normal Internal Rotation 5 Normal Comments pain with resisted flexion Elbow/Forearm Strength Elbow and Forearm Manual Muscle Testing Right Flexion (C6) 5 Normal Extension (C7) 5 Normal Reason Not Measured Pain Comments pain with resisted elbow flexion Left Flexion (C6) 5 Normal Extension (C7) 5 Normal Reason Not Measured Pain Comments pain with resisted elbow flexion PT-OP-Q Treatments Start: 09/29/18 16:27 Freq: Status: Active Protocol: Document 10/15/18 10:36 DLM (Rec: 10/15/18 17:41 DL [id number]) Cardio Equipment Upper Body Ergometer (UBE) Duration (Minutes) 5 Height chest level Other posterior motion only Therapeutic Exercises Supine Exercises 1 Supine Exercise Name Foam roll postural stretching Resistance passive Comments UE's at sides, T and over- head Prone Exercises 1 Prone Exercise Name scapular retraction Side bilateral Resistance active Reps/Minutes 10 reps each Comments at sides and T Sidelying Exercises 1 Sidelying Exercise Name Shoulder ER Side bilateral Equipment Used 2# Reps/Minutes to fatigue Standing Exercises 5 Standing Exercise Name Biceps stretch Side right Reps/Minutes 30 sec hold x 2 reps Comments arm on wall and turn body 4 Standing Exercise Name Shoulder IR Side bilateral Resistance L3 exercise band Reps/Minutes 15 reps each side Comments one side at a time 3 Standing Exercise Name Shoulder ER Side bilateral Resistance L3 exercise band Reps/Minutes 15 reps each Comments modified ROM to decrease biceps symptoms 2 Standing Exercise Name Rows Side bilateral Resistance L3 exercise band Reps/Minutes 15 reps Comments verbal cues for positioning 1 Standing Exercise Name shoulder extension Side bilateral Resistance L2,L3 exercise band Reps/Minutes L2 x 10 reps, L3 x 10 reps Manual Therapy Treatment Soft Tissue Mobilization 1 Body Location right biceps Mobilization Type Cross-Friction Intensity/Depth Moderate Body Position Sitting Self-Care/Home Management Treatment Education Patient Education Home Exercise Program Pain Management Other Education ok to start fencing motions again with caution, not to start normal weight routine with UE's yet PT-OP-R Modalities Start: 09/29/18 16:27 Freq: Status: Active Protocol: Document 10/08/18 10:30 DLM (Rec: 10/08/18 19:59 DLM [id number]) Ultrasound Therapy Treatment Right Shoulder Treatment Duration (minutes) 8 Patient Position Sitting Coupling Medium Ultrasound Gel Applicator Size (cm2) 10 Mode Setting Continuous Intensity Setting (w/cm2) 1.3 Left Shoulder Treatment Duration (minutes) 7 Patient Position Sitting Coupling Medium Ultrasound Gel Applicator Size (cm2) 10 Mode Setting Continuous Intensity Setting (w/cm2) 1.3 PT-OP-T Assessment and Plan Start: 09/29/18 16:27 Freq: Status: Active Protocol: Document 10/15/18 10:36 DLM (Rec: 10/15/18 17:41 DLM [id number]) Physical Therapy Assessment Goals Four Impairment Impaired functional use of shoulders, Quick Dash=50 Short Term Goal (STG) Quick Dash score improvement to <25 STG Duration 4 weeks Fdc Goal (LTG) Quick Dash score improvement to <10 LTG Duration 8 weeks Three Impairment Positive impingement signs right shoulder Short Term Goal (STG) Resolve impingement signs right shoulder STG Duration 6 weeks Fdc Goal (LTG) Demonstrate erect posture and improved postural awareness LTG Duration 8 weeks Two Impairment Impaired Strength Short Term Goal (STG) Increase his shoulder strength to at least 4+/5 without pain STG Duration 4 weeks Paper Plate Machine Tender Goal (LTG) Increase his bilateral shoulder strength to 5/5 without pain LTG Duration 8 weeks One Impairment Pain of 6/10 Short Term Goal (STG) Decrease his shoulder pain to less than or equal to 3/10 STG Duration 4 weeks Paper Plate Machine Tender Goal (LTG) Decrease shoulder pain to 0/10 with normal use LTG Duration 8 weeks Progress Towards Goals Progress Towards Goals Progressing Toward Goals Assessment Summary Assessment He tolerated treatment well today. His pain continues to improve. Impingement symptoms have resolved today. Mild to moderate right biceps tightness continues. He tolerated advancement of his exercises today. Physical Therapy Plan Frequency and Duration Frequency of Treatment 2x/Week Duration of Treatment 8 weeks Plan of Care Start Date 09/29/18 Plan of Care End Date 11/24/18 Next Visit Focus/Plan Next Note Type Treatment Note Next Visit Plan provide L3 band for home, add prone ex and SL ex to HEP if continues to tolerate well
--- NOTE | 2018-10-20 16:18 | PT.OTN ---
Current Diagnoses Pain in right shoulder (10/20/18) Pain in left shoulder (10/20/18) Physical Therapy Treatment Note PT-OP-A Visit Information Start: 09/29/18 16:27 Freq: Status: Active Protocol: Document 10/20/18 10:30 SAK (Rec: 10/20/18 11:25 SAK [id number]) Out-Patient Physical Therapy Visit Information Visit Information Visit Type Treatment Note Visit Start Time 10:30 Visit Stop Time 11:15 Total Visit Minutes 45 Visit Number 6 Number of CELLULAR BIOLOGIST Visits 0 Evaluation Information Evaluation Date 09/29/18 Precautions Precautions hx of back pain, bilateral carpal tunnel sx and seizures PT-OP-B Current Condition Start: 09/29/18 16:27 Freq: Status: Active Protocol: Document 09/29/18 10:30 DLM (Rec: 09/30/18 08:40 DLM [id number]) Current Condition History of Current Condition Onset Date gradual Current Complaints Bilateral shoulder pain with right worse than left History of Current Condition He reports sudden onset right shoulder pain and about two weeks later left shoulder pain . He has no known injury. The pain interferes with functional use of his arms. He has pain that affects his sleep. Prior Treatments and Tests x-rays showed mild arthritis Future Testing and Treatments Planned none reported Treatment Goals Patient/Caregiver Goals resolve his shoulder pain Prior Functional Status Baseline Function- ADL's Independent Baseline Function- Mobility Independent Baseline Function- Gait Independent without device, community distances Baseline Function- Work/School getting his bachelor degree online, desktop computer Baseline Function- Recreation/Hobbies Stretches for 45 min, 1 hr cardio workout, walking for 1. 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 [employer] Current Functional Impairments (Reported) Functional Limitations- ADL's Independent with pain in bilateral shoulders Functional Limitations- Mobility/Gait no changes reported Functional Limitations- Recreation/ pain with fencing especially Hobbies with reaching out motion Personal Factors Other Personal Factors That May Effect lost a lot of weight and Therapy/Recovery exercises now to keep the weight off PT-OP-C Subjective Start: 09/29/18 16:27 Freq: Status: Active Protocol: Document 10/08/18 10:30 DLM (Rec: 10/08/18 19:59 DLM [id number]) OP-PT Subjective Patient Comments Patient Comments He mowed the lawn yesturday. He will miss his treatment on Friday due to going out of town. He reports doing well with his exercises at home. He c/o right biceps pain since mowing. Patient Reported Progress Improving PT-OP-F Manual Assessment Start: 09/29/18 16:27 Freq: Status: Active Protocol: Document 09/29/18 10:30 DLM (Rec: 09/30/18 08:56 DLM [id number]) Manual Assessments Soft Tissue Assessment Soft Tissue Mobility Assessment sub-occipital tightness PT-OP-H Neuro Start: 09/29/18 16:27 Freq: Status: Active Protocol: Document 09/29/18 10:30 DLM (Rec: 09/30/18 08:56 DLM [id number]) Sensation Evaluation Gross Sensation Gross Sensation WNL PT-OP-J Posture/Palpation/Skin Start: 09/29/18 16:27 Freq: Status: Active Protocol: Document 09/29/18 10:30 DLM (Rec: 09/30/18 08:47 DLM [id number]) Posture Evaluation Position Sitting Evaluation View Anterior Head/C-Spine Posture Forward Head Shoulder Posture (L) Rounded (R) Rounded Pelvis Posture Posterior Tilted Weight Distribution Balanced Palpation Assessment Location Three Palpation Location left shoulder area Palpation Findings Soft Tissue Tightness Tenderness Palpation Details mild tenderness right biceps tendon anterior shoulder, lateral bursa tenderness, tightness and tender left upper trap, mild tenderness left posterior shoulder Two Palpation Location Right biceps Palpation Findings Soft Tissue Tightness Tenderness Palpation Details tender with positive signs of tendonitis anterior shoulder, tightness with mass effect mid bicep, entire length of biceps tender to touch One Palpation Location Right shoulder area Palpation Findings Soft Tissue Tightness Tenderness Trigger Point Palpation Details tender AC joint, upper trap tender and tight, rhomboids tender and tight, scalenes tender PT-OP-K Range of Motion Start: 09/29/18 16:27 Freq: Status: Active Protocol: Document 09/29/18 10:30 DLM (Rec: 09/30/18 08:51 DLM [id number]) Cervical Spine Range of Motion Cervical Spine Active Percentage Testing Position Sitting Flexion 100 Extension 100 Rotation Left 75 Rotation Right 90 Lateral Flexion Left 50 Lateral Flexion Right 75 ROM Limitations Soft Tissue Tightness Comments no pain reported, only tightness Shoulder Goniometric Range of Motion Shoulder Right Active Shoulder ROM WFL Yes Testing Position Sitting Left Active Shoulder ROM WFL Yes Testing Position Sitting Shoulder ROM Limitations Shoulder ROM Limitations Pain Comments pain with right shoulder IR behind back, crepitus with left shoulder ER, positive for painful arc on right but negative on left PT-OP-L Special Tests Start: 09/29/18 16:27 Freq: Status: Active Protocol: Document 10/15/18 10:36 DLM (Rec: 10/15/18 17:41 DLM [id number]) Special Tests Shoulder Special Tests Elevation Impingement Test Results negative Comments bilateral PT-OP-M Strength Start: 09/29/18 16:27 Freq: Status: Active Protocol: Document 09/29/18 10:30 DLM (Rec: 09/30/18 08:55 DLM [id number]) Shoulder Strength Shoulder Manual Muscle Testing Right Flexion 4 Good Extension 5 Normal Abduction (C5) 4 Good Adduction 5 Normal External Rotation 5 Normal Internal Rotation 5 Normal Reason Not Measured Pain Comments pain with resisted flexion and abduction Left Flexion 4+ Good+ Extension 5 Normal Abduction (C5) 5 Normal Adduction 5 Normal External Rotation 5 Normal Internal Rotation 5 Normal Comments pain with resisted flexion Elbow/Forearm Strength Elbow and Forearm Manual Muscle Testing Right Flexion (C6) 5 Normal Extension (C7) 5 Normal Reason Not Measured Pain Comments pain with resisted elbow flexion Left Flexion (C6) 5 Normal Extension (C7) 5 Normal Reason Not Measured Pain Comments pain with resisted elbow flexion PT-OP-Q Treatments Start: 09/29/18 16:27 Freq: Status: Active Protocol: Document 10/20/18 10:30 SHANE (Rec: 10/20/18 11:25 SAK [id number]) Cardio Equipment Upper Body Ergometer (UBE) Duration (Minutes) 7 RPM 110 Height chest level Other posterior motion only Therapeutic Exercises Supine Exercises 1 Supine Exercise Name Foam roll postural stretching Resistance passive Comments UE's at sides, T and over- head Prone Exercises 1 Prone Exercise Name scapular retraction Side bilateral Resistance active Reps/Minutes 10 reps each Comments at sides and T Sidelying Exercises 1 Sidelying Exercise Name Shoulder ER Side bilateral Equipment Used 2# Reps/Minutes to fatigue Standing Exercises 4 Standing Exercise Name Shoulder IR Side bilateral Resistance L3 exercise band Reps/Minutes 15 reps each side Comments one side at a time 3 Standing Exercise Name Shoulder ER Side bilateral Resistance L3 exercise band Reps/Minutes 15 reps each Comments modified ROM to decrease biceps symptoms 2 Standing Exercise Name Rows Side bilateral Resistance L3 exercise band Reps/Minutes 15 reps Comments verbal cues for positioning 1 Standing Exercise Name shoulder extension Side bilateral Resistance L2,L3 exercise band Reps/Minutes L2 x 10 reps, L3 x 10 reps Self-Care/Home Management Treatment Education Patient Education Home Exercise Program Pain Management Other Education updated written HEP to include prone ex and S/L ER. Issued L3 TB PT-OP-R Modalities Start: 09/29/18 16:27 Freq: Status: Active Protocol: Document 10/08/18 10:30 DLM (Rec: 10/08/18 19:59 DLM [id number]) Ultrasound Therapy Treatment Right Shoulder Treatment Duration (minutes) 8 Patient Position Sitting Coupling Medium Ultrasound Gel Applicator Size (cm2) 10 Mode Setting Continuous Intensity Setting (w/cm2) 1.3 Left Shoulder Treatment Duration (minutes) 7 Patient Position Sitting Coupling Medium Ultrasound Gel Applicator Size (cm2) 10 Mode Setting Continuous Intensity Setting (w/cm2) 1.3 PT-OP-T Assessment and Plan Start: 09/29/18 16:27 Freq: Status: Active Protocol: Document 10/20/18 10:30 SAK (Rec: 10/20/18 11:25 SAK [id number]) Physical Therapy Assessment Goals Four Impairment Impaired functional use of shoulders, Quick Dash=50 Short Term Goal (STG) Quick Dash score improvement to <25 STG Duration 4 weeks Fpc Goal (LTG) Quick Dash score improvement to <10 LTG Duration 8 weeks Three Impairment Positive impingement signs right shoulder Short Term Goal (STG) Resolve impingement signs right shoulder STG Duration 6 weeks Accounts Payable Representative Goal (LTG) Demonstrate erect posture and improved postural awareness LTG Duration 8 weeks Two Impairment Impaired Strength Short Term Goal (STG) Increase his shoulder strength to at least 4+/5 without pain STG Duration 4 weeks Accounts Payable Representative Goal (LTG) Increase his bilateral shoulder strength to 5/5 without pain LTG Duration 8 weeks One Impairment Pain of 6/10 Short Term Goal (STG) Decrease his shoulder pain to less than or equal to 3/10 STG Duration 4 weeks Fpc Goal (LTG) Decrease shoulder pain to 0/10 with normal use LTG Duration 8 weeks Progress Towards Goals Progress Towards Goals Progressing Toward Goals Assessment Summary Assessment Continues to progress well. Verbal and manual cues for muscle activation and correct form with ther ex. Issued L3 TB, updated HEP. Has started fencing motions with no adverse effects. Prone exercise difficult. Physical Therapy Plan Frequency and Duration Frequency of Treatment 2x/Week Duration of Treatment 8 weeks Plan of Care Start Date 09/29/18 Plan of Care End Date 11/24/18 Therapeutic Interventions Therapeutic Interventions Home Exercise Program Joint Mobilizations Manual Therapy Patient/Caregiver Education Self-Care/Home Management Soft Tissue Mobilization Taping Therapeutic Activities Therapeutic Exercises Modalities Cold Pack/Ice Massage Electric Stimulation Hot Packs Ultrasound Next Visit Focus/Plan Next Note Type Treatment Note Next Visit Plan Add body blade, active shoulder flex as tolerated.
--- NOTE | 2018-10-22 11:59 | PT.OTN ---
Current Diagnoses Pain in right shoulder (10/22/18) Pain in left shoulder (10/22/18) Physical Therapy Treatment Note PT-OP-A Visit Information Start: 09/29/18 16:27 Freq: Status: Active Protocol: Document 10/22/18 10:39 SAK (Rec: 10/22/18 11:22 SAK [id number]) Out-Patient Physical Therapy Visit Information Visit Information Visit Type Treatment Note Visit Start Time 10:30 Visit Stop Time 11:30 Total Visit Minutes 45 Visit Number 7 Number of SCRAPER TENDER Visits 0 Evaluation Information Evaluation Date 09/29/18 Precautions Precautions hx of back pain, bilateral carpal tunnel sx and seizures PT-OP-B Current Condition Start: 09/29/18 16:27 Freq: Status: Active Protocol: Document 09/29/18 10:30 DLM (Rec: 09/30/18 08:40 DLM [id number]) Current Condition History of Current Condition Onset Date gradual Current Complaints Bilateral shoulder pain with right worse than left History of Current Condition He reports sudden onset right shoulder pain and about two weeks later left shoulder pain . He has no known injury. The pain interferes with functional use of his arms. He has pain that affects his sleep. Prior Treatments and Tests x-rays showed mild arthritis Future Testing and Treatments Planned none reported Treatment Goals Patient/Caregiver Goals resolve his shoulder pain Prior Functional Status Baseline Function- ADL's Independent Baseline Function- Mobility Independent Baseline Function- Gait Independent without device, community distances Baseline Function- Work/School getting his bachelor degree online, desktop computer Baseline Function- Recreation/Hobbies Stretches for 45 min, 1 hr cardio workout, walking for 1. 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 Current Functional Impairments (Reported) Functional Limitations- ADL's Independent with pain in bilateral shoulders Functional Limitations- Mobility/Gait no changes reported Functional Limitations- Recreation/ pain with fencing especially Hobbies with reaching out motion Personal Factors Other Personal Factors That May Effect lost a lot of weight and Therapy/Recovery exercises now to keep the weight off PT-OP-C Subjective Start: 09/29/18 16:27 Freq: Status: Active Protocol: Document 10/22/18 10:39 SAK (Rec: 10/22/18 11:22 SAK [id number]) OP-PT Subjective Patient Comments Patient Comments No new c/o, able to hold fencing position with right UE with much less pain PT-OP-F Manual Assessment Start: 09/29/18 16:27 Freq: Status: Active Protocol: Document 09/29/18 10:30 DLM (Rec: 09/30/18 08:56 DLM [id number]) Manual Assessments Soft Tissue Assessment Soft Tissue Mobility Assessment sub-occipital tightness PT-OP-H Neuro Start: 09/29/18 16:27 Freq: Status: Active Protocol: Document 09/29/18 10:30 DLM (Rec: 09/30/18 08:56 DLM [id number]) Sensation Evaluation Gross Sensation Gross Sensation WNL PT-OP-J Posture/Palpation/Skin Start: 09/29/18 16:27 Freq: Status: Active Protocol: Document 09/29/18 10:30 DLM (Rec: 09/30/18 08:47 DLM [id number]) Posture Evaluation Position Sitting Evaluation View Anterior Head/C-Spine Posture Forward Head Shoulder Posture (L) Rounded (R) Rounded Pelvis Posture Posterior Tilted Weight Distribution Balanced Palpation Assessment Location Three Palpation Location left shoulder area Palpation Findings Soft Tissue Tightness Tenderness Palpation Details mild tenderness right biceps tendon anterior shoulder, lateral bursa tenderness, tightness and tender left upper trap, mild tenderness left posterior shoulder Two Palpation Location Right biceps Palpation Findings Soft Tissue Tightness Tenderness Palpation Details tender with positive signs of tendonitis anterior shoulder, tightness with mass effect mid bicep, entire length of biceps tender to touch One Palpation Location Right shoulder area Palpation Findings Soft Tissue Tightness Tenderness Trigger Point Palpation Details tender AC joint, upper trap tender and tight, rhomboids tender and tight, scalenes tender PT-OP-K Range of Motion Start: 09/29/18 16:27 Freq: Status: Active Protocol: Document 09/29/18 10:30 DLM (Rec: 09/30/18 08:51 DLM [id number]) Cervical Spine Range of Motion Cervical Spine Active Percentage Testing Position Sitting Flexion 100 Extension 100 Rotation Left 75 Rotation Right 90 Lateral Flexion Left 50 Lateral Flexion Right 75 ROM Limitations Soft Tissue Tightness Comments no pain reported, only tightness Shoulder Goniometric Range of Motion Shoulder Right Active Shoulder ROM WFL Yes Testing Position Sitting Left Active Shoulder ROM WFL Yes Testing Position Sitting Shoulder ROM Limitations Shoulder ROM Limitations Pain Comments pain with right shoulder IR behind back, crepitus with left shoulder ER, positive for painful arc on right but negative on left PT-OP-L Special Tests Start: 09/29/18 16:27 Freq: Status: Active Protocol: Document 10/15/18 10:36 DLM (Rec: 10/15/18 17:41 DLM [id number]) Special Tests Shoulder Special Tests Elevation Impingement Test Results negative Comments bilateral PT-OP-M Strength Start: 09/29/18 16:27 Freq: Status: Active Protocol: Document 09/29/18 10:30 DLM (Rec: 09/30/18 08:55 DLM [id number]) Shoulder Strength Shoulder Manual Muscle Testing Right Flexion 4 Good Extension 5 Normal Abduction (C5) 4 Good Adduction 5 Normal External Rotation 5 Normal Internal Rotation 5 Normal Reason Not Measured Pain Comments pain with resisted flexion and abduction Left Flexion 4+ Good+ Extension 5 Normal Abduction (C5) 5 Normal Adduction 5 Normal External Rotation 5 Normal Internal Rotation 5 Normal Comments pain with resisted flexion Elbow/Forearm Strength Elbow and Forearm Manual Muscle Testing Right Flexion (C6) 5 Normal Extension (C7) 5 Normal Reason Not Measured Pain Comments pain with resisted elbow flexion Left Flexion (C6) 5 Normal Extension (C7) 5 Normal Reason Not Measured Pain Comments pain with resisted elbow flexion PT-OP-Q Treatments Start: 09/29/18 16:27 Freq: Status: Active Protocol: Document 10/22/18 10:39 SAK (Rec: 10/22/18 11:22 SAK [id number]) Cardio Equipment Recumbent Stepper (Sci-Fit) Duration (Minutes) 8 Resistance 3 Other emphasis on shoulder extension Therapeutic Exercises Supine Exercises chest press Equipment Used 5# on wand Reps/Minutes 15 1 Supine Exercise Name Foam roll postural stretching Resistance passive Comments UE's at sides, T and over- head Prone Exercises 1 Prone Exercise Name scapular retraction Side bilateral Resistance active Reps/Minutes 10 reps each Comments at sides and T Sidelying Exercises 1 Sidelying Exercise Name Shoulder ER Side bilateral Equipment Used 2# Reps/Minutes to fatigue Standing Exercises Body blade Reps/Minutes small Comments guerda, unil in fencing stance 5 Standing Exercise Name Biceps stretch Side right Reps/Minutes 30 sec hold x 2 reps Comments arm on wall and turn body Self-Care/Home Management Treatment Education Patient Education Home Exercise Program Pain Management Other Education updated written HEP to include prone ex and S/L ER. Issued L3 TB PT-OP-R Modalities Start: 09/29/18 16:27 Freq: Status: Active Protocol: Document 10/08/18 10:30 DLM (Rec: 10/08/18 19:59 DLM [id number]) Ultrasound Therapy Treatment Right Shoulder Treatment Duration (minutes) 8 Patient Position Sitting Coupling Medium Ultrasound Gel Applicator Size (cm2) 10 Mode Setting Continuous Intensity Setting (w/cm2) 1.3 Left Shoulder Treatment Duration (minutes) 7 Patient Position Sitting Coupling Medium Ultrasound Gel Applicator Size (cm2) 10 Mode Setting Continuous Intensity Setting (w/cm2) 1.3 PT-OP-T Assessment and Plan Start: 09/29/18 16:27 Freq: Status: Active Protocol: Document 10/22/18 10:39 SAK (Rec: 10/22/18 11:22 SAK [id number]) Physical Therapy Assessment Goals Four Impairment Impaired functional use of shoulders, Quick Dash=50 Short Term Goal (STG) Quick Dash score improvement to <25 STG Duration 4 weeks Military Cook Goal (LTG) Quick Dash score improvement to <10 LTG Duration 8 weeks Three Impairment Positive impingement signs right shoulder Short Term Goal (STG) Resolve impingement signs right shoulder STG Duration 6 weeks Retirement Goal (LTG) Demonstrate erect posture and improved postural awareness LTG Duration 8 weeks Two Impairment Impaired Strength Short Term Goal (STG) Increase his shoulder strength to at least 4+/5 without pain STG Duration 4 weeks Retirement Goal (LTG) Increase his bilateral shoulder strength to 5/5 without pain LTG Duration 8 weeks One Impairment Pain of 6/10 Short Term Goal (STG) Decrease his shoulder pain to less than or equal to 3/10 STG Duration 4 weeks Retirement Goal (LTG) Decrease shoulder pain to 0/10 with normal use LTG Duration 8 weeks Progress Towards Goals Progress Towards Goals Progressing Toward Goals Assessment Summary Assessment Continues to progress well. Verbal and manual cues for muscle activation and correct form with ther ex. Issued L3 TB, updated HEP. Has started fencing motions with no adverse effects. Prone exercise difficult. Physical Therapy Plan Frequency and Duration Frequency of Treatment 2x/Week Duration of Treatment 8 weeks Plan of Care Start Date 09/29/18 Plan of Care End Date 11/24/18 Therapeutic Interventions Therapeutic Interventions Home Exercise Program Joint Mobilizations Manual Therapy Patient/Caregiver Education Self-Care/Home Management Soft Tissue Mobilization Taping Therapeutic Activities Therapeutic Exercises Modalities Cold Pack/Ice Massage Electric Stimulation Hot Packs Ultrasound Next Visit Focus/Plan Next Note Type Treatment Note Next Visit Plan progress theraband ex with NOEMI valencias
--- NOTE | 2018-10-27 15:50 | PT.OTN ---
Current Diagnoses Pain in right shoulder (10/27/18) Pain in left shoulder (10/27/18) Physical Therapy Treatment Note PT-OP-A Visit Information Start: 09/29/18 16:27 Freq: Status: Active Protocol: Document 10/27/18 10:35 SAK (Rec: 10/27/18 11:17 SAK [id number]) Out-Patient Physical Therapy Visit Information Visit Information Visit Type Treatment Note Visit Start Time 10:30 Visit Stop Time 11:30 Total Visit Minutes 60 Visit Number 8 Number of BEAN SORTER Visits 0 Evaluation Information Evaluation Date 09/29/18 Precautions Precautions hx of back pain, bilateral carpal tunnel sx and seizures PT-OP-B Current Condition Start: 09/29/18 16:27 Freq: Status: Active Protocol: Document 09/29/18 10:30 DLM (Rec: 09/30/18 08:40 DLM [id number]) Current Condition History of Current Condition Onset Date gradual Current Complaints Bilateral shoulder pain with right worse than left History of Current Condition He reports sudden onset right shoulder pain and about two weeks later left shoulder pain . He has no known injury. The pain interferes with functional use of his arms. He has pain that affects his sleep. Prior Treatments and Tests x-rays showed mild arthritis Future Testing and Treatments Planned none reported Treatment Goals Patient/Caregiver Goals resolve his shoulder pain Prior Functional Status Baseline Function- ADL's Independent Baseline Function- Mobility Independent Baseline Function- Gait Independent without device, community distances Baseline Function- Work/School getting his bachelor degree online, desktop computer Baseline Function- Recreation/Hobbies Stretches for 45 min, 1 hr cardio workout, walking for 1. 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 Current Functional Impairments (Reported) Functional Limitations- ADL's Independent with pain in bilateral shoulders Functional Limitations- Mobility/Gait no changes reported Functional Limitations- Recreation/ pain with fencing especially Hobbies with reaching out motion Personal Factors Other Personal Factors That May Effect lost a lot of weight and Therapy/Recovery exercises now to keep the weight off PT-OP-C Subjective Start: 09/29/18 16:27 Freq: Status: Active Protocol: Document 10/27/18 10:35 SAK (Rec: 10/27/18 11:17 SAK [id number]) OP-PT Subjective Patient Comments Patient Comments some increased soreness after last session; I think I got a little exuberant PT-OP-F Manual Assessment Start: 09/29/18 16:27 Freq: Status: Active Protocol: Document 09/29/18 10:30 DLM (Rec: 09/30/18 08:56 DLM [id number]) Manual Assessments Soft Tissue Assessment Soft Tissue Mobility Assessment sub-occipital tightness PT-OP-H Neuro Start: 09/29/18 16:27 Freq: Status: Active Protocol: Document 09/29/18 10:30 DLM (Rec: 09/30/18 08:56 DLM [id number]) Sensation Evaluation Gross Sensation Gross Sensation WNL PT-OP-J Posture/Palpation/Skin Start: 09/29/18 16:27 Freq: Status: Active Protocol: Document 09/29/18 10:30 DLM (Rec: 09/30/18 08:47 DLM [id number]) Posture Evaluation Position Sitting Evaluation View Anterior Head/C-Spine Posture Forward Head Shoulder Posture (L) Rounded (R) Rounded Pelvis Posture Posterior Tilted Weight Distribution Balanced Palpation Assessment Location Three Palpation Location left shoulder area Palpation Findings Soft Tissue Tightness Tenderness Palpation Details mild tenderness right biceps tendon anterior shoulder, lateral bursa tenderness, tightness and tender left upper trap, mild tenderness left posterior shoulder Two Palpation Location Right biceps Palpation Findings Soft Tissue Tightness Tenderness Palpation Details tender with positive signs of tendonitis anterior shoulder, tightness with mass effect mid bicep, entire length of biceps tender to touch One Palpation Location Right shoulder area Palpation Findings Soft Tissue Tightness Tenderness Trigger Point Palpation Details tender AC joint, upper trap tender and tight, rhomboids tender and tight, scalenes tender PT-OP-K Range of Motion Start: 09/29/18 16:27 Freq: Status: Active Protocol: Document 09/29/18 10:30 DLM (Rec: 09/30/18 08:51 DLM [id number]) Cervical Spine Range of Motion Cervical Spine Active Percentage Testing Position Sitting Flexion 100 Extension 100 Rotation Left 75 Rotation Right 90 Lateral Flexion Left 50 Lateral Flexion Right 75 ROM Limitations Soft Tissue Tightness Comments no pain reported, only tightness Shoulder Goniometric Range of Motion Shoulder Right Active Shoulder ROM WFL Yes Testing Position Sitting Left Active Shoulder ROM WFL Yes Testing Position Sitting Shoulder ROM Limitations Shoulder ROM Limitations Pain Comments pain with right shoulder IR behind back, crepitus with left shoulder ER, positive for painful arc on right but negative on left PT-OP-L Special Tests Start: 09/29/18 16:27 Freq: Status: Active Protocol: Document 10/15/18 10:36 DLM (Rec: 10/15/18 17:41 DLM [id number]) Special Tests Shoulder Special Tests Elevation Impingement Test Results negative Comments bilateral PT-OP-M Strength Start: 09/29/18 16:27 Freq: Status: Active Protocol: Document 09/29/18 10:30 DLM (Rec: 09/30/18 08:55 DLM [id number]) Shoulder Strength Shoulder Manual Muscle Testing Right Flexion 4 Good Extension 5 Normal Abduction (C5) 4 Good Adduction 5 Normal External Rotation 5 Normal Internal Rotation 5 Normal Reason Not Measured Pain Comments pain with resisted flexion and abduction Left Flexion 4+ Good+ Extension 5 Normal Abduction (C5) 5 Normal Adduction 5 Normal External Rotation 5 Normal Internal Rotation 5 Normal Comments pain with resisted flexion Elbow/Forearm Strength Elbow and Forearm Manual Muscle Testing Right Flexion (C6) 5 Normal Extension (C7) 5 Normal Reason Not Measured Pain Comments pain with resisted elbow flexion Left Flexion (C6) 5 Normal Extension (C7) 5 Normal Reason Not Measured Pain Comments pain with resisted elbow flexion PT-OP-Q Treatments Start: 09/29/18 16:27 Freq: Status: Active Protocol: Document 10/27/18 10:35 SAK (Rec: 10/27/18 11:17 SAK [id number]) Cardio Equipment Upper Body Ergometer (UBE) Duration (Minutes) 5 RPM 90 Height chest level Other posterior motion only Therapeutic Exercises Supine Exercises serratus punch Equipment Used foam roll Reps/Minutes 10x chest press Equipment Used 5# on wand Reps/Minutes 15 1 Supine Exercise Name Foam roll postural stretching Resistance passive Comments UE's at sides, T and over- head Prone Exercises 1 Prone Exercise Name scapular retraction Side bilateral Resistance active Equipment Used 1# Reps/Minutes 10 reps each Comments at sides and T Sidelying Exercises 1 Sidelying Exercise Name Shoulder ER Side bilateral Equipment Used 2# Reps/Minutes to fatigue Standing Exercises UT and LS stretch Reps/Minutes 2x Body blade Reps/Minutes small amp x 1 Comments guerda, unil in fencing stance 5 Standing Exercise Name Biceps stretch Side right Reps/Minutes 30 sec hold x 2 reps Comments arm on wall and turn body 2 Standing Exercise Name Rows Side bilateral Resistance L3 exercise band Reps/Minutes 15 reps Comments verbal cues for positioning 1 Standing Exercise Name shoulder extension Side bilateral Resistance L2,L3 exercise band Reps/Minutes L2 x 10 reps, L3 x 10 reps PT-OP-R Modalities Start: 09/29/18 16:27 Freq: Status: Active Protocol: Document 10/08/18 10:30 DLM (Rec: 10/08/18 19:59 DLM [id number]) Ultrasound Therapy Treatment Right Shoulder Treatment Duration (minutes) 8 Patient Position Sitting Coupling Medium Ultrasound Gel Applicator Size (cm2) 10 Mode Setting Continuous Intensity Setting (w/cm2) 1.3 Left Shoulder Treatment Duration (minutes) 7 Patient Position Sitting Coupling Medium Ultrasound Gel Applicator Size (cm2) 10 Mode Setting Continuous Intensity Setting (w/cm2) 1.3 PT-OP-T Assessment and Plan Start: 09/29/18 16:27 Freq: Status: Active Protocol: Document 10/27/18 10:35 SAK (Rec: 10/27/18 11:17 SAK [id number]) Physical Therapy Assessment Goals Four Impairment Impaired functional use of shoulders, Quick Dash=50 Short Term Goal (STG) Quick Dash score improvement to <25 STG Duration 4 weeks Prison Goal (LTG) Quick Dash score improvement to <10 LTG Duration 8 weeks Three Impairment Positive impingement signs right shoulder Short Term Goal (STG) Resolve impingement signs right shoulder STG Duration 6 weeks Project Management Manager Goal (LTG) Demonstrate erect posture and improved postural awareness LTG Duration 8 weeks Two Impairment Impaired Strength Short Term Goal (STG) Increase his shoulder strength to at least 4+/5 without pain STG Duration 4 weeks Prison Goal (LTG) Increase his bilateral shoulder strength to 5/5 without pain LTG Duration 8 weeks One Impairment Pain of 6/10 Short Term Goal (STG) Decrease his shoulder pain to less than or equal to 3/10 STG Duration 4 weeks Project Management Manager Goal (LTG) Decrease shoulder pain to 0/10 with normal use LTG Duration 8 weeks Assessment Summary Assessment Increased soreness today. Needed cues for form and technique with ther ex with right scapula needing manual facilitation and verbal and manual cues to decrease upper trap activation Physical Therapy Plan Frequency and Duration Frequency of Treatment 2x/Week Duration of Treatment 8 weeks Plan of Care Start Date 09/29/18 Plan of Care End Date 11/24/18 Therapeutic Interventions Therapeutic Interventions Home Exercise Program Joint Mobilizations Manual Therapy Patient/Caregiver Education Self-Care/Home Management Soft Tissue Mobilization Taping Therapeutic Activities Therapeutic Exercises Modalities Cold Pack/Ice Massage Electric Stimulation Hot Packs Ultrasound Next Visit Focus/Plan Next Note Type Treatment Note Next Visit Plan progress theraband ex with PNF diagnonals
--- NOTE | 2018-11-03 13:32 | PT.OTN ---
Current Diagnoses Pain in right shoulder (11/03/18) Pain in left shoulder (11/03/18) Physical Therapy Treatment Note PT-OP-A Visit Information Start: 09/29/18 16:27 Freq: Status: Active Protocol: Document 11/03/18 10:35 SAK (Rec: 11/03/18 11:15 SAK [id number]) Out-Patient Physical Therapy Visit Information Visit Information Visit Type Treatment Note Visit Start Time 10:30 Visit Stop Time 11:30 Total Visit Minutes 60 Visit Number 9 Number of SOIL ANALYST Visits 0 Evaluation Information Evaluation Date 09/29/18 Precautions Precautions hx of back pain, bilateral carpal tunnel sx and seizures PT-OP-B Current Condition Start: 09/29/18 16:27 Freq: Status: Active Protocol: Document 09/29/18 10:30 DLM (Rec: 09/30/18 08:40 DLM [id number]) Current Condition History of Current Condition Onset Date gradual Current Complaints Bilateral shoulder pain with right worse than left History of Current Condition He reports sudden onset right shoulder pain and about two weeks later left shoulder pain . He has no known injury. The pain interferes with functional use of his arms. He has pain that affects his sleep. Prior Treatments and Tests x-rays showed mild arthritis Future Testing and Treatments Planned none reported Treatment Goals Patient/Caregiver Goals resolve his shoulder pain Prior Functional Status Baseline Function- ADL's Independent Baseline Function- Mobility Independent Baseline Function- Gait Independent without device, community distances Baseline Function- Work/School getting his bachelor degree online, desktop computer Baseline Function- Recreation/Hobbies Stretches for 45 min, 1 hr cardio workout, walking for 1. 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 Current Functional Impairments (Reported) Functional Limitations- ADL's Independent with pain in bilateral shoulders Functional Limitations- Mobility/Gait no changes reported Functional Limitations- Recreation/ pain with fencing especially Hobbies with reaching out motion Personal Factors Other Personal Factors That May Effect lost a lot of weight and Therapy/Recovery exercises now to keep the weight off PT-OP-C Subjective Start: 09/29/18 16:27 Freq: Status: Active Protocol: Document 11/03/18 10:35 SAK (Rec: 11/03/18 11:15 SAK [id number]) OP-PT Subjective Patient Comments Patient Comments Improving, less pain, tires easily in shoulder PT-OP-F Manual Assessment Start: 09/29/18 16:27 Freq: Status: Active Protocol: Document 09/29/18 10:30 DLM (Rec: 09/30/18 08:56 DLM [id number]) Manual Assessments Soft Tissue Assessment Soft Tissue Mobility Assessment sub-occipital tightness PT-OP-H Neuro Start: 09/29/18 16:27 Freq: Status: Active Protocol: Document 09/29/18 10:30 DLM (Rec: 09/30/18 08:56 DLM [id number]) Sensation Evaluation Gross Sensation Gross Sensation WNL PT-OP-J Posture/Palpation/Skin Start: 09/29/18 16:27 Freq: Status: Active Protocol: Document 09/29/18 10:30 DLM (Rec: 09/30/18 08:47 DLM [id number]) Posture Evaluation Position Sitting Evaluation View Anterior Head/C-Spine Posture Forward Head Shoulder Posture (L) Rounded (R) Rounded Pelvis Posture Posterior Tilted Weight Distribution Balanced Palpation Assessment Location Three Palpation Location left shoulder area Palpation Findings Soft Tissue Tightness Tenderness Palpation Details mild tenderness right biceps tendon anterior shoulder, lateral bursa tenderness, tightness and tender left upper trap, mild tenderness left posterior shoulder Two Palpation Location Right biceps Palpation Findings Soft Tissue Tightness Tenderness Palpation Details tender with positive signs of tendonitis anterior shoulder, tightness with mass effect mid bicep, entire length of biceps tender to touch One Palpation Location Right shoulder area Palpation Findings Soft Tissue Tightness Tenderness Trigger Point Palpation Details tender AC joint, upper trap tender and tight, rhomboids tender and tight, scalenes tender PT-OP-K Range of Motion Start: 09/29/18 16:27 Freq: Status: Active Protocol: Document 09/29/18 10:30 DLM (Rec: 09/30/18 08:51 DLM [id number]) Cervical Spine Range of Motion Cervical Spine Active Percentage Testing Position Sitting Flexion 100 Extension 100 Rotation Left 75 Rotation Right 90 Lateral Flexion Left 50 Lateral Flexion Right 75 ROM Limitations Soft Tissue Tightness Comments no pain reported, only tightness Shoulder Goniometric Range of Motion Shoulder Right Active Shoulder ROM WFL Yes Testing Position Sitting Left Active Shoulder ROM WFL Yes Testing Position Sitting Shoulder ROM Limitations Shoulder ROM Limitations Pain Comments pain with right shoulder IR behind back, crepitus with left shoulder ER, positive for painful arc on right but negative on left PT-OP-L Special Tests Start: 09/29/18 16:27 Freq: Status: Active Protocol: Document 10/15/18 10:36 DLM (Rec: 10/15/18 17:41 DLM [id number]) Special Tests Shoulder Special Tests Elevation Impingement Test Results negative Comments bilateral PT-OP-M Strength Start: 09/29/18 16:27 Freq: Status: Active Protocol: Document 09/29/18 10:30 DLM (Rec: 09/30/18 08:55 DLM [id number]) Shoulder Strength Shoulder Manual Muscle Testing Right Flexion 4 Good Extension 5 Normal Abduction (C5) 4 Good Adduction 5 Normal External Rotation 5 Normal Internal Rotation 5 Normal Reason Not Measured Pain Comments pain with resisted flexion and abduction Left Flexion 4+ Good+ Extension 5 Normal Abduction (C5) 5 Normal Adduction 5 Normal External Rotation 5 Normal Internal Rotation 5 Normal Comments pain with resisted flexion Elbow/Forearm Strength Elbow and Forearm Manual Muscle Testing Right Flexion (C6) 5 Normal Extension (C7) 5 Normal Reason Not Measured Pain Comments pain with resisted elbow flexion Left Flexion (C6) 5 Normal Extension (C7) 5 Normal Reason Not Measured Pain Comments pain with resisted elbow flexion PT-OP-Q Treatments Start: 09/29/18 16:27 Freq: Status: Active Protocol: Document 11/03/18 10:35 SAK (Rec: 11/03/18 11:15 SAK [id number]) Therapeutic Exercises Prone Exercises shld flex Reps/Minutes 10x Comments verbal and manual cues horizoneal abd Equipment Used 2# Reps/Minutes 10x Comments verbal and manual cues 1 Prone Exercise Name scapular retraction Side bilateral Resistance active Equipment Used 2# Reps/Minutes 10 reps each Comments at sides and T Sidelying Exercises 1 Sidelying Exercise Name Shoulder ER Side bilateral Equipment Used 2# Reps/Minutes to fatigue Sitting Exercises pulleys for shoulder flex, scaption Reps/Minutes 12 x ea Standing Exercises PNF diagnonals Comments next session wall push-up Reps/Minutes 10x 2 Comments hands on balls second set standing foil thrust Resistance L1 TB Reps/Minutes 10x Body blade Reps/Minutes 30 ea Comments guerda, unil in fencing stance 5 Standing Exercise Name Biceps stretch Side right Reps/Minutes 30 sec hold x 2 reps Comments arm on wall and turn body 4 Standing Exercise Name Shoulder IR Side bilateral Resistance L2 exercise band Reps/Minutes 15 reps each side Comments one side at a time 3 Standing Exercise Name Shoulder ER Side bilateral Resistance L2 exercise band Reps/Minutes 15 reps each Comments modified ROM to decrease biceps symptoms 2 Standing Exercise Name Rows Side bilateral Resistance L2 exercise band Reps/Minutes 15 reps Comments verbal cues for positioning 1 Standing Exercise Name shoulder extension Side bilateral Resistance L2, exercise band Reps/Minutes L2 x 10 reps, L3 x 10 reps PT-OP-R Modalities Start: 09/29/18 16:27 Freq: Status: Active Protocol: Document 11/03/18 10:35 SAK (Rec: 11/03/18 11:15 [facility] [id number]) Ultrasound Therapy Treatment Right Shoulder Treatment Duration (minutes) 8 Patient Position Sitting Coupling Medium Ultrasound Gel Applicator Size (cm2) 10 Mode Setting Continuous Intensity Setting (w/cm2) 1.3 PT-OP-T Assessment and Plan Start: 09/29/18 16:27 Freq: Status: Active Protocol: Document 11/03/18 10:35 [facility] (Rec: 11/03/18 11:15 [facility] [id number]) Physical Therapy Assessment Goals Four Impairment Impaired functional use of shoulders, Quick Dash=50 Short Term Goal (STG) Quick Dash score improvement to <25 STG Duration 4 weeks Jig Boring Machine Set Up Operator Goal (LTG) Quick Dash score improvement to <10 LTG Duration 8 weeks Three Impairment Positive impingement signs right shoulder Short Term Goal (STG) Resolve impingement signs right shoulder STG Duration 6 weeks Jig Boring Machine Set Up Operator Goal (LTG) Demonstrate erect posture and improved postural awareness LTG Duration 8 weeks Two Impairment Impaired Strength Short Term Goal (STG) Increase his shoulder strength to at least 4+/5 without pain STG Duration 4 weeks Jig Boring Machine Set Up Operator Goal (LTG) Increase his bilateral shoulder strength to 5/5 without pain LTG Duration 8 weeks One Impairment Pain of 6/10 Short Term Goal (STG) Decrease his shoulder pain to less than or equal to 3/10 STG Duration 4 weeks Jig Boring Machine Set Up Operator Goal (LTG) Decrease shoulder pain to 0/10 with normal use LTG Duration 8 weeks Assessment Summary Assessment good progress, decreased pain, increased tolerance for fencing position with slow speed and small amplitude movement. Fatigues quickly. Physical Therapy Plan Frequency and Duration Frequency of Treatment 2x/Week Duration of Treatment 8 weeks Plan of Care Start Date 09/29/18 Plan of Care End Date 11/24/18 Therapeutic Interventions Therapeutic Interventions Home Exercise Program Joint Mobilizations Manual Therapy Patient/Caregiver Education Self-Care/Home Management Soft Tissue Mobilization Taping Therapeutic Activities Therapeutic Exercises Modalities Cold Pack/Ice Massage Electric Stimulation Hot Packs Ultrasound Next Visit Focus/Plan Next Note Type Treatment Note Next Visit Plan continue ther ex progression, return to activity program
--- NOTE | 2018-11-06 11:42 | PT.OTN ---
Current Diagnoses Pain in right shoulder (11/06/18) Pain in left shoulder (11/06/18) Physical Therapy Treatment Note PT-OP-A Visit Information Start: 09/29/18 16:27 Freq: Status: Active Protocol: Document 11/06/18 11:34 SA (Rec: 11/06/18 11:42 SA [id number]) Out-Patient Physical Therapy Visit Information Visit Information Visit Type Treatment Note Visit Start Time 10:30 Visit Stop Time 11:16 Total Visit Minutes 46 Visit Number 10 Number of HAZARDOUS WASTE REMOVER Visits 1 PT-OP-B Current Condition Start: 09/29/18 16:27 Freq: Status: Active Protocol: Document 09/29/18 10:30 DLM (Rec: 09/30/18 08:40 DLM [id number]) Current Condition History of Current Condition Onset Date gradual Current Complaints Bilateral shoulder pain with right worse than left History of Current Condition He reports sudden onset right shoulder pain and about two weeks later left shoulder pain . He has no known injury. The pain interferes with functional use of his arms. He has pain that affects his sleep. Prior Treatments and Tests x-rays showed mild arthritis Future Testing and Treatments Planned none reported Treatment Goals Patient/Caregiver Goals resolve his shoulder pain Prior Functional Status Baseline Function- ADL's Independent Baseline Function- Mobility Independent Baseline Function- Gait Independent without device, community distances Baseline Function- Work/School getting his bachelor degree online, desktop computer Baseline Function- Recreation/Hobbies Stretches for 45 min, 1 hr cardio workout, walking for 1. 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 Current Functional Impairments (Reported) Functional Limitations- ADL's Independent with pain in bilateral shoulders Functional Limitations- Mobility/Gait no changes reported Functional Limitations- Recreation/ pain with fencing especially Hobbies with reaching out motion Personal Factors Other Personal Factors That May Effect lost a lot of weight and Therapy/Recovery exercises now to keep the weight off PT-OP-C Subjective Start: 09/29/18 16:27 Freq: Status: Active Protocol: Document 11/06/18 11:34 SA (Rec: 11/06/18 11:42 SA [id number]) OP-PT Subjective Patient Comments Patient Comments Pt reports progress with improving movement and decreased pain. PT-OP-F Manual Assessment Start: 09/29/18 16:27 Freq: Status: Active Protocol: Document 09/29/18 10:30 DLM (Rec: 09/30/18 08:56 DL [id number]) Manual Assessments Soft Tissue Assessment Soft Tissue Mobility Assessment sub-occipital tightness PT-OP-H Neuro Start: 09/29/18 16:27 Freq: Status: Active Protocol: Document 09/29/18 10:30 DLM (Rec: 09/30/18 08:56 DL [id number]) Sensation Evaluation Gross Sensation Gross Sensation WNL PT-OP-J Posture/Palpation/Skin Start: 09/29/18 16:27 Freq: Status: Active Protocol: Document 09/29/18 10:30 DLM (Rec: 09/30/18 08:47 DLM [id number]) Posture Evaluation Position Sitting Evaluation View Anterior Head/C-Spine Posture Forward Head Shoulder Posture (L) Rounded (R) Rounded Pelvis Posture Posterior Tilted Weight Distribution Balanced Palpation Assessment Location Three Palpation Location left shoulder area Palpation Findings Soft Tissue Tightness Tenderness Palpation Details mild tenderness right biceps tendon anterior shoulder, lateral bursa tenderness, tightness and tender left upper trap, mild tenderness left posterior shoulder Two Palpation Location Right biceps Palpation Findings Soft Tissue Tightness Tenderness Palpation Details tender with positive signs of tendonitis anterior shoulder, tightness with mass effect mid bicep, entire length of biceps tender to touch One Palpation Location Right shoulder area Palpation Findings Soft Tissue Tightness Tenderness Trigger Point Palpation Details tender AC joint, upper trap tender and tight, rhomboids tender and tight, scalenes tender PT-OP-K Range of Motion Start: 09/29/18 16:27 Freq: Status: Active Protocol: Document 09/29/18 10:30 DLM (Rec: 09/30/18 08:51 DLM [id number]) Cervical Spine Range of Motion Cervical Spine Active Percentage Testing Position Sitting Flexion 100 Extension 100 Rotation Left 75 Rotation Right 90 Lateral Flexion Left 50 Lateral Flexion Right 75 ROM Limitations Soft Tissue Tightness Comments no pain reported, only tightness Shoulder Goniometric Range of Motion Shoulder Right Active Shoulder ROM WFL Yes Testing Position Sitting Left Active Shoulder ROM WFL Yes Testing Position Sitting Shoulder ROM Limitations Shoulder ROM Limitations Pain Comments pain with right shoulder IR behind back, crepitus with left shoulder ER, positive for painful arc on right but negative on left PT-OP-L Special Tests Start: 09/29/18 16:27 Freq: Status: Active Protocol: Document 10/15/18 10:36 DLM (Rec: 10/15/18 17:41 DLM [id number]) Special Tests Shoulder Special Tests Elevation Impingement Test Results negative Comments bilateral PT-OP-M Strength Start: 09/29/18 16:27 Freq: Status: Active Protocol: Document 09/29/18 10:30 DLM (Rec: 09/30/18 08:55 DLM [id number]) Shoulder Strength Shoulder Manual Muscle Testing Right Flexion 4 Good Extension 5 Normal Abduction (C5) 4 Good Adduction 5 Normal External Rotation 5 Normal Internal Rotation 5 Normal Reason Not Measured Pain Comments pain with resisted flexion and abduction Left Flexion 4+ Good+ Extension 5 Normal Abduction (C5) 5 Normal Adduction 5 Normal External Rotation 5 Normal Internal Rotation 5 Normal Comments pain with resisted flexion Elbow/Forearm Strength Elbow and Forearm Manual Muscle Testing Right Flexion (C6) 5 Normal Extension (C7) 5 Normal Reason Not Measured Pain Comments pain with resisted elbow flexion Left Flexion (C6) 5 Normal Extension (C7) 5 Normal Reason Not Measured Pain Comments pain with resisted elbow flexion PT-OP-Q Treatments Start: 09/29/18 16:27 Freq: Status: Active Protocol: Document 11/06/18 11:34 SA (Rec: 11/06/18 11:42 SA [id number]) Cardio Equipment Upper Body Ergometer (UBE) Duration (Minutes) 5 RPM 90 Height chest level Other posterior motion only Therapeutic Exercises Supine Exercises serratus punch Resistance 2# Equipment Used foam roll Reps/Minutes 10x Prone Exercises horizoneal abd Equipment Used 2# Reps/Minutes 10x Comments verbal and manual cues 1 Prone Exercise Name scapular retraction Side bilateral Resistance active Equipment Used 2# Reps/Minutes 10 reps each Comments at sides and T Sidelying Exercises 1 Sidelying Exercise Name Shoulder ER Side bilateral Equipment Used 2# Reps/Minutes to fatigue Standing Exercises PNF diagnonals Side bilateral Resistance 1# Reps/Minutes 15 each standing foil thrust Resistance L1 TB Reps/Minutes 10x Body blade Reps/Minutes 30 ea Comments guerda, unil in fencing stance 5 Standing Exercise Name Biceps stretch Side right Reps/Minutes 30 sec hold x 2 reps Comments arm on wall and turn body 4 Standing Exercise Name Shoulder IR Side bilateral Resistance L2 exercise band Reps/Minutes 15 reps each side Comments one side at a time 2 Standing Exercise Name Rows Side bilateral Resistance L3 exercise band Reps/Minutes 20x Comments verbal cues for positioning 1 Standing Exercise Name shoulder extension Side bilateral Resistance L3, exercise band Reps/Minutes 20x Manual Therapy Treatment Soft Tissue Mobilization 2 Body Location left shoulder area Mobilization Type Cross-Friction Myofascial Release Strumming Sustained Pressure Intensity/Depth Moderate Body Position Supine Comments including UT and pects PT-OP-R Modalities Start: 09/29/18 16:27 Freq: Status: Active Protocol: Document 11/06/18 11:34 SA (Rec: 11/06/18 11:42 [email or web address]) Ultrasound Therapy Treatment Right Shoulder Treatment Duration (minutes) 8 Patient Position Sitting Coupling Medium Ultrasound Gel Applicator Size (cm2) 10 Mode Setting Continuous Intensity Setting (w/cm2) 1.3 PT-OP-T Assessment and Plan Start: 09/29/18 16:27 Freq: Status: Active Protocol: Document 11/06/18 11:34 SA (Rec: 11/06/18 11:42 [email or web address]) Physical Therapy Assessment Assessment Summary Assessment Pt tolerating ther ex progressions well, no increase in shoulder pain and using CP at home as needed. Physical Therapy Plan Next Visit Focus/Plan Next Note Type Treatment Note Next Visit Plan continue ther ex progression, return to activity program
--- NOTE | 2018-11-10 16:26 | PT.OTN ---
Current Diagnoses Pain in right shoulder (11/10/18) Pain in left shoulder (11/10/18) Physical Therapy Treatment Note PT-OP-A Visit Information Start: 09/29/18 16:27 Freq: Status: Active Protocol: Document 11/10/18 10:36 SAK (Rec: 11/10/18 11:08 SAK [id number]) Out-Patient Physical Therapy Visit Information Visit Information Visit Type Treatment Note Visit Start Time 10:30 Visit Stop Time 11:16 Total Visit Minutes 46 Visit Number 11 Number of SPECIALTY TRANSFORMER ASSEMBLER Visits 0 Evaluation Information Evaluation Date 09/29/18 Precautions Precautions hx of back pain, bilateral carpal tunnel sx and seizures PT-OP-B Current Condition Start: 09/29/18 16:27 Freq: Status: Active Protocol: Document 09/29/18 10:30 DLM (Rec: 09/30/18 08:40 DLM [id number]) Current Condition History of Current Condition Onset Date gradual Current Complaints Bilateral shoulder pain with right worse than left History of Current Condition He reports sudden onset right shoulder pain and about two weeks later left shoulder pain . He has no known injury. The pain interferes with functional use of his arms. He has pain that affects his sleep. Prior Treatments and Tests x-rays showed mild arthritis Future Testing and Treatments Planned none reported Treatment Goals Patient/Caregiver Goals resolve his shoulder pain Prior Functional Status Baseline Function- ADL's Independent Baseline Function- Mobility Independent Baseline Function- Gait Independent without device, community distances Baseline Function- Work/School getting his bachelor degree online, desktop computer Baseline Function- Recreation/Hobbies Stretches for 45 min, 1 hr cardio workout, walking for 1. 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 Current Functional Impairments (Reported) Functional Limitations- ADL's Independent with pain in bilateral shoulders Functional Limitations- Mobility/Gait no changes reported Functional Limitations- Recreation/ pain with fencing especially Hobbies with reaching out motion Personal Factors Other Personal Factors That May Effect lost a lot of weight and Therapy/Recovery exercises now to keep the weight off PT-OP-C Subjective Start: 09/29/18 16:27 Freq: Status: Active Protocol: Document 11/06/18 11:34 SA (Rec: 11/06/18 11:42 SA [id number]) OP-PT Subjective Patient Comments Patient Comments Pt reports progress with improving movement and decreased pain. PT-OP-F Manual Assessment Start: 09/29/18 16:27 Freq: Status: Active Protocol: Document 09/29/18 10:30 DLM (Rec: 09/30/18 08:56 DLM [id number]) Manual Assessments Soft Tissue Assessment Soft Tissue Mobility Assessment sub-occipital tightness PT-OP-H Neuro Start: 09/29/18 16:27 Freq: Status: Active Protocol: Document 09/29/18 10:30 DLM (Rec: 09/30/18 08:56 DLM [id number]) Sensation Evaluation Gross Sensation Gross Sensation WNL PT-OP-J Posture/Palpation/Skin Start: 09/29/18 16:27 Freq: Status: Active Protocol: Document 09/29/18 10:30 DLM (Rec: 09/30/18 08:47 DLM [id number]) Posture Evaluation Position Sitting Evaluation View Anterior Head/C-Spine Posture Forward Head Shoulder Posture (L) Rounded (R) Rounded Pelvis Posture Posterior Tilted Weight Distribution Balanced Palpation Assessment Location Three Palpation Location left shoulder area Palpation Findings Soft Tissue Tightness Tenderness Palpation Details mild tenderness right biceps tendon anterior shoulder, lateral bursa tenderness, tightness and tender left upper trap, mild tenderness left posterior shoulder Two Palpation Location Right biceps Palpation Findings Soft Tissue Tightness Tenderness Palpation Details tender with positive signs of tendonitis anterior shoulder, tightness with mass effect mid bicep, entire length of biceps tender to touch One Palpation Location Right shoulder area Palpation Findings Soft Tissue Tightness Tenderness Trigger Point Palpation Details tender AC joint, upper trap tender and tight, rhomboids tender and tight, scalenes tender PT-OP-K Range of Motion Start: 09/29/18 16:27 Freq: Status: Active Protocol: Document 09/29/18 10:30 DLM (Rec: 09/30/18 08:51 DLM [id number]) Cervical Spine Range of Motion Cervical Spine Active Percentage Testing Position Sitting Flexion 100 Extension 100 Rotation Left 75 Rotation Right 90 Lateral Flexion Left 50 Lateral Flexion Right 75 ROM Limitations Soft Tissue Tightness Comments no pain reported, only tightness Shoulder Goniometric Range of Motion Shoulder Right Active Shoulder ROM WFL Yes Testing Position Sitting Left Active Shoulder ROM WFL Yes Testing Position Sitting Shoulder ROM Limitations Shoulder ROM Limitations Pain Comments pain with right shoulder IR behind back, crepitus with left shoulder ER, positive for painful arc on right but negative on left PT-OP-L Special Tests Start: 09/29/18 16:27 Freq: Status: Active Protocol: Document 10/15/18 10:36 DLM (Rec: 10/15/18 17:41 DLM [id number]) Special Tests Shoulder Special Tests Elevation Impingement Test Results negative Comments bilateral PT-OP-M Strength Start: 09/29/18 16:27 Freq: Status: Active Protocol: Document 09/29/18 10:30 DLM (Rec: 09/30/18 08:55 DLM [id number]) Shoulder Strength Shoulder Manual Muscle Testing Right Flexion 4 Good Extension 5 Normal Abduction (C5) 4 Good Adduction 5 Normal External Rotation 5 Normal Internal Rotation 5 Normal Reason Not Measured Pain Comments pain with resisted flexion and abduction Left Flexion 4+ Good+ Extension 5 Normal Abduction (C5) 5 Normal Adduction 5 Normal External Rotation 5 Normal Internal Rotation 5 Normal Comments pain with resisted flexion Elbow/Forearm Strength Elbow and Forearm Manual Muscle Testing Right Flexion (C6) 5 Normal Extension (C7) 5 Normal Reason Not Measured Pain Comments pain with resisted elbow flexion Left Flexion (C6) 5 Normal Extension (C7) 5 Normal Reason Not Measured Pain Comments pain with resisted elbow flexion PT-OP-Q Treatments Start: 09/29/18 16:27 Freq: Status: Active Protocol: Document 11/10/18 10:36 SAK (Rec: 11/10/18 11:08 SAK [id number]) Cardio Equipment Upper Body Ergometer (UBE) Duration (Minutes) 6 RPM 80 Height chest level Other posterior motion only Gym Equipment Cable Column (Body Solid) standing squat row Resistance 20 Reps/Time 10x Therapeutic Exercises Supine Exercises serratus punch Resistance 2# Equipment Used foam roll Reps/Minutes 10x chest press Equipment Used 5# on wand Reps/Minutes 15 1 Supine Exercise Name Foam roll postural stretching Resistance passive Comments UE's at sides, T and over- head Prone Exercises horizoneal abd Equipment Used 2# Reps/Minutes 10x Comments verbal and manual cues 1 Prone Exercise Name scapular retraction Side bilateral Resistance active Equipment Used 2# Reps/Minutes 10 reps each Comments at sides and T Sidelying Exercises 1 Sidelying Exercise Name Shoulder ER Side bilateral Equipment Used 2# Reps/Minutes to fatigue Standing Exercises bicep curl Resistance 5# Reps/Minutes 2x10 PNF diagnonals Side bilateral Resistance 1# Reps/Minutes 2x10 standing foil thrust Resistance L1 TB Reps/Minutes 10x Body blade Reps/Minutes 30 ea Comments guerda, unil in fencing stance 5 Standing Exercise Name Biceps stretch Side right Reps/Minutes 30 sec hold x 2 reps Comments arm on wall and turn body Manual Therapy Treatment Soft Tissue Mobilization 2 Body Location left shoulder area Mobilization Type Cross-Friction Myofascial Release Strumming Sustained Pressure Intensity/Depth Moderate Body Position Supine Comments including UT and pects PT-OP-R Modalities Start: 09/29/18 16:27 Freq: Status: Active Protocol: Document 11/10/18 10:36 [facility] (Rec: 11/10/18 11:08 [facility] [id number]) Ultrasound Therapy Treatment Right Shoulder Treatment Duration (minutes) 8 Patient Position Sitting Coupling Medium Ultrasound Gel Applicator Size (cm2) 10 Mode Setting Continuous Intensity Setting (w/cm2) 1.3 PT-OP-T Assessment and Plan Start: 09/29/18 16:27 Freq: Status: Active Protocol: Document 11/10/18 10:36 [facility] (Rec: 11/10/18 11:08 [facility] [id number]) Physical Therapy Assessment Goals Four Impairment Impaired functional use of shoulders, Quick Dash=50 Short Term Goal (STG) Quick Dash score improvement to <25 STG Duration 4 weeks Jail Goal (LTG) Quick Dash score improvement to <10 LTG Duration 8 weeks Three Impairment Positive impingement signs right shoulder Short Term Goal (STG) Resolve impingement signs right shoulder STG Duration 6 weeks Advisor To [employer] In Combat Goal (LTG) Demonstrate erect posture and improved postural awareness LTG Duration 8 weeks Two Impairment Impaired Strength Short Term Goal (STG) Increase his shoulder strength to at least 4+/5 without pain STG Duration 4 weeks Jail Goal (LTG) Increase his bilateral shoulder strength to 5/5 without pain LTG Duration 8 weeks One Impairment Pain of 6/10 Short Term Goal (STG) Decrease his shoulder pain to less than or equal to 3/10 STG Duration 4 weeks Jail Goal (LTG) Decrease shoulder pain to 0/10 with normal use LTG Duration 8 weeks Progress Towards Goals Progress Towards Goals Progressing Toward Goals Assessment Summary Assessment Patient reporting decreased pain, tolerated progression of body blade size with ex, demonstrating improving scapular stability on right. Physical Therapy Plan Frequency and Duration Frequency of Treatment 2x/Week Duration of Treatment 8 weeks Plan of Care Start Date 09/29/18 Plan of Care End Date 11/24/18 Therapeutic Interventions Therapeutic Interventions Home Exercise Program Joint Mobilizations Manual Therapy Patient/Caregiver Education Self-Care/Home Management Soft Tissue Mobilization Taping Therapeutic Activities Therapeutic Exercises Modalities Cold Pack/Ice Massage Electric Stimulation Hot Packs Ultrasound Next Visit Focus/Plan Next Note Type Treatment Note Next Visit Plan continue ther ex progression, return to activity program
--- NOTE | 2018-11-10 16:27 | PT.OTN ---
Current Diagnoses Pain in right shoulder (11/10/18) Pain in left shoulder (11/10/18) Physical Therapy Treatment Note PT-OP-A Visit Information Start: 09/29/18 16:27 Freq: Status: Active Protocol: Document 11/10/18 10:36 SAK (Rec: 11/10/18 11:08 SAK [id number]) Out-Patient Physical Therapy Visit Information Visit Information Visit Type Treatment Note Visit Start Time 10:30 Visit Stop Time 11:16 Total Visit Minutes 46 Visit Number 11 Number of WEDDING DAY COORDINATOR Visits 0 Evaluation Information Evaluation Date 09/29/18 Precautions Precautions hx of back pain, bilateral carpal tunnel sx and seizures PT-OP-B Current Condition Start: 09/29/18 16:27 Freq: Status: Active Protocol: Document 09/29/18 10:30 DLM (Rec: 09/30/18 08:40 DLM [id number]) Current Condition History of Current Condition Onset Date gradual Current Complaints Bilateral shoulder pain with right worse than left History of Current Condition He reports sudden onset right shoulder pain and about two weeks later left shoulder pain . He has no known injury. The pain interferes with functional use of his arms. He has pain that affects his sleep. Prior Treatments and Tests x-rays showed mild arthritis Future Testing and Treatments Planned none reported Treatment Goals Patient/Caregiver Goals resolve his shoulder pain Prior Functional Status Baseline Function- ADL's Independent Baseline Function- Mobility Independent Baseline Function- Gait Independent without device, community distances Baseline Function- Work/School getting his bachelor degree online, desktop computer Baseline Function- Recreation/Hobbies Stretches for 45 min, 1 hr cardio workout, walking for 1. 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 Current Functional Impairments (Reported) Functional Limitations- ADL's Independent with pain in bilateral shoulders Functional Limitations- Mobility/Gait no changes reported Functional Limitations- Recreation/ pain with fencing especially Hobbies with reaching out motion Personal Factors Other Personal Factors That May Effect lost a lot of weight and Therapy/Recovery exercises now to keep the weight off PT-OP-C Subjective Start: 09/29/18 16:27 Freq: Status: Active Protocol: Document 11/10/18 10:36 SAK (Rec: 11/10/18 16:27 SAK [id number]) OP-PT Subjective Patient Comments Patient Comments Pain less, tolerating increase in activity, not back to fencing yet. PT-OP-F Manual Assessment Start: 09/29/18 16:27 Freq: Status: Active Protocol: Document 09/29/18 10:30 DLM (Rec: 09/30/18 08:56 DLM [id number]) Manual Assessments Soft Tissue Assessment Soft Tissue Mobility Assessment sub-occipital tightness PT-OP-H Neuro Start: 09/29/18 16:27 Freq: Status: Active Protocol: Document 09/29/18 10:30 DLM (Rec: 09/30/18 08:56 DLM [id number]) Sensation Evaluation Gross Sensation Gross Sensation WNL PT-OP-J Posture/Palpation/Skin Start: 09/29/18 16:27 Freq: Status: Active Protocol: Document 09/29/18 10:30 DLM (Rec: 09/30/18 08:47 DLM [id number]) Posture Evaluation Position Sitting Evaluation View Anterior Head/C-Spine Posture Forward Head Shoulder Posture (L) Rounded (R) Rounded Pelvis Posture Posterior Tilted Weight Distribution Balanced Palpation Assessment Location Three Palpation Location left shoulder area Palpation Findings Soft Tissue Tightness Tenderness Palpation Details mild tenderness right biceps tendon anterior shoulder, lateral bursa tenderness, tightness and tender left upper trap, mild tenderness left posterior shoulder Two Palpation Location Right biceps Palpation Findings Soft Tissue Tightness Tenderness Palpation Details tender with positive signs of tendonitis anterior shoulder, tightness with mass effect mid bicep, entire length of biceps tender to touch One Palpation Location Right shoulder area Palpation Findings Soft Tissue Tightness Tenderness Trigger Point Palpation Details tender AC joint, upper trap tender and tight, rhomboids tender and tight, scalenes tender PT-OP-K Range of Motion Start: 09/29/18 16:27 Freq: Status: Active Protocol: Document 09/29/18 10:30 DLM (Rec: 09/30/18 08:51 DLM [id number]) Cervical Spine Range of Motion Cervical Spine Active Percentage Testing Position Sitting Flexion 100 Extension 100 Rotation Left 75 Rotation Right 90 Lateral Flexion Left 50 Lateral Flexion Right 75 ROM Limitations Soft Tissue Tightness Comments no pain reported, only tightness Shoulder Goniometric Range of Motion Shoulder Right Active Shoulder ROM WFL Yes Testing Position Sitting Left Active Shoulder ROM WFL Yes Testing Position Sitting Shoulder ROM Limitations Shoulder ROM Limitations Pain Comments pain with right shoulder IR behind back, crepitus with left shoulder ER, positive for painful arc on right but negative on left PT-OP-L Special Tests Start: 09/29/18 16:27 Freq: Status: Active Protocol: Document 10/15/18 10:36 DLM (Rec: 10/15/18 17:41 DLM [id number]) Special Tests Shoulder Special Tests Elevation Impingement Test Results negative Comments bilateral PT-OP-M Strength Start: 09/29/18 16:27 Freq: Status: Active Protocol: Document 09/29/18 10:30 DLM (Rec: 09/30/18 08:55 DLM [id number]) Shoulder Strength Shoulder Manual Muscle Testing Right Flexion 4 Good Extension 5 Normal Abduction (C5) 4 Good Adduction 5 Normal External Rotation 5 Normal Internal Rotation 5 Normal Reason Not Measured Pain Comments pain with resisted flexion and abduction Left Flexion 4+ Good+ Extension 5 Normal Abduction (C5) 5 Normal Adduction 5 Normal External Rotation 5 Normal Internal Rotation 5 Normal Comments pain with resisted flexion Elbow/Forearm Strength Elbow and Forearm Manual Muscle Testing Right Flexion (C6) 5 Normal Extension (C7) 5 Normal Reason Not Measured Pain Comments pain with resisted elbow flexion Left Flexion (C6) 5 Normal Extension (C7) 5 Normal Reason Not Measured Pain Comments pain with resisted elbow flexion PT-OP-Q Treatments Start: 09/29/18 16:27 Freq: Status: Active Protocol: Document 11/10/18 10:36 SAK (Rec: 11/10/18 11:08 SAK [id number]) Cardio Equipment Upper Body Ergometer (UBE) Duration (Minutes) 6 RPM 80 Height chest level Other posterior motion only Gym Equipment Cable Column (Body Solid) standing squat row Resistance 20 Reps/Time 10x Therapeutic Exercises Supine Exercises serratus punch Resistance 2# Equipment Used foam roll Reps/Minutes 10x chest press Equipment Used 5# on wand Reps/Minutes 15 1 Supine Exercise Name Foam roll postural stretching Resistance passive Comments UE's at sides, T and over- head Prone Exercises horizoneal abd Equipment Used 2# Reps/Minutes 10x Comments verbal and manual cues 1 Prone Exercise Name scapular retraction Side bilateral Resistance active Equipment Used 2# Reps/Minutes 10 reps each Comments at sides and T Sidelying Exercises 1 Sidelying Exercise Name Shoulder ER Side bilateral Equipment Used 2# Reps/Minutes to fatigue Standing Exercises bicep curl Resistance 5# Reps/Minutes 2x10 PNF diagnonals Side bilateral Resistance 1# Reps/Minutes 2x10 standing foil thrust Resistance L1 TB Reps/Minutes 10x Body blade Reps/Minutes 30 ea Comments guerda, unil in fencing stance 5 Standing Exercise Name Biceps stretch Side right Reps/Minutes 30 sec hold x 2 reps Comments arm on wall and turn body Manual Therapy Treatment Soft Tissue Mobilization 2 Body Location left shoulder area Mobilization Type Cross-Friction Myofascial Release Strumming Sustained Pressure Intensity/Depth Moderate Body Position Supine Comments including UT and pects PT-OP-R Modalities Start: 09/29/18 16:27 Freq: Status: Active Protocol: Document 11/10/18 10:36 [facility] (Rec: 11/10/18 11:08 [facility] [id number]) Ultrasound Therapy Treatment Right Shoulder Treatment Duration (minutes) 8 Patient Position Sitting Coupling Medium Ultrasound Gel Applicator Size (cm2) 10 Mode Setting Continuous Intensity Setting (w/cm2) 1.3 PT-OP-T Assessment and Plan Start: 09/29/18 16:27 Freq: Status: Active Protocol: Document 11/10/18 10:36 [facility] (Rec: 11/10/18 11:08 [facility] [id number]) Physical Therapy Assessment Goals Four Impairment Impaired functional use of shoulders, Quick Dash=50 Short Term Goal (STG) Quick Dash score improvement to <25 STG Duration 4 weeks Documentation Billing Clerk Goal (LTG) Quick Dash score improvement to <10 LTG Duration 8 weeks Three Impairment Positive impingement signs right shoulder Short Term Goal (STG) Resolve impingement signs right shoulder STG Duration 6 weeks Documentation Billing Clerk Goal (LTG) Demonstrate erect posture and improved postural awareness LTG Duration 8 weeks Two Impairment Impaired Strength Short Term Goal (STG) Increase his shoulder strength to at least 4+/5 without pain STG Duration 4 weeks Retirement Goal (LTG) Increase his bilateral shoulder strength to 5/5 without pain LTG Duration 8 weeks One Impairment Pain of 6/10 Short Term Goal (STG) Decrease his shoulder pain to less than or equal to 3/10 STG Duration 4 weeks Documentation Billing Clerk Goal (LTG) Decrease shoulder pain to 0/10 with normal use LTG Duration 8 weeks Progress Towards Goals Progress Towards Goals Progressing Toward Goals Assessment Summary Assessment Patient reporting decreased pain, tolerated progression of body blade size with ex, demonstrating improving scapular stability on right. Physical Therapy Plan Frequency and Duration Frequency of Treatment 2x/Week Duration of Treatment 8 weeks Plan of Care Start Date 09/29/18 Plan of Care End Date 11/24/18 Therapeutic Interventions Therapeutic Interventions Home Exercise Program Joint Mobilizations Manual Therapy Patient/Caregiver Education Self-Care/Home Management Soft Tissue Mobilization Taping Therapeutic Activities Therapeutic Exercises Modalities Cold Pack/Ice Massage Electric Stimulation Hot Packs Ultrasound Next Visit Focus/Plan Next Note Type Treatment Note Next Visit Plan continue ther ex progression, return to activity program
--- NOTE | 2018-11-17 12:28 | PT.OTN ---
Current Diagnoses Pain in right shoulder (11/17/18) Pain in left shoulder (11/17/18) Physical Therapy Treatment Note PT-OP-A Visit Information Start: 09/29/18 16:27 Freq: Status: Active Protocol: Document 11/17/18 12:23 GGD (Rec: 11/17/18 12:27 GGD [id number]) Out-Patient Physical Therapy Visit Information Visit Information Visit Type Treatment Note Visit Start Time 10:30 Visit Stop Time 11:15 Total Visit Minutes 45 Visit Number 12 Number of BONE GLUE MAKER Visits 1 Evaluation Information Evaluation Date 09/29/18 PT-OP-B Current Condition Start: 09/29/18 16:27 Freq: Status: Active Protocol: Document 09/29/18 10:30 DLM (Rec: 09/30/18 08:40 DLM [id number]) Current Condition History of Current Condition Onset Date gradual Current Complaints Bilateral shoulder pain with right worse than left History of Current Condition He reports sudden onset right shoulder pain and about two weeks later left shoulder pain . He has no known injury. The pain interferes with functional use of his arms. He has pain that affects his sleep. Prior Treatments and Tests x-rays showed mild arthritis Future Testing and Treatments Planned none reported Treatment Goals Patient/Caregiver Goals resolve his shoulder pain Prior Functional Status Baseline Function- ADL's Independent Baseline Function- Mobility Independent Baseline Function- Gait Independent without device, community distances Baseline Function- Work/School getting his bachelor degree online, desktop computer Baseline Function- Recreation/Hobbies Stretches for 45 min, 1 hr cardio workout, walking for 1. 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 Current Functional Impairments (Reported) Functional Limitations- ADL's Independent with pain in bilateral shoulders Functional Limitations- Mobility/Gait no changes reported Functional Limitations- Recreation/ pain with fencing especially Hobbies with reaching out motion Personal Factors Other Personal Factors That May Effect lost a lot of weight and Therapy/Recovery exercises now to keep the weight off PT-OP-C Subjective Start: 09/29/18 16:27 Freq: Status: Active Protocol: Document 11/17/18 12:23 GGD (Rec: 11/17/18 12:27 GGD [id number]) OP-PT Subjective Patient Comments Patient Comments PT states shoulder is improving, He is doing his HEP . PT-OP-F Manual Assessment Start: 09/29/18 16:27 Freq: Status: Active Protocol: Document 09/29/18 10:30 DLM (Rec: 09/30/18 08:56 DLM [id number]) Manual Assessments Soft Tissue Assessment Soft Tissue Mobility Assessment sub-occipital tightness PT-OP-H Neuro Start: 09/29/18 16:27 Freq: Status: Active Protocol: Document 09/29/18 10:30 DLM (Rec: 09/30/18 08:56 DLM [id number]) Sensation Evaluation Gross Sensation Gross Sensation WNL PT-OP-J Posture/Palpation/Skin Start: 09/29/18 16:27 Freq: Status: Active Protocol: Document 09/29/18 10:30 DLM (Rec: 09/30/18 08:47 DLM [id number]) Posture Evaluation Position Sitting Evaluation View Anterior Head/C-Spine Posture Forward Head Shoulder Posture (L) Rounded (R) Rounded Pelvis Posture Posterior Tilted Weight Distribution Balanced Palpation Assessment Location Three Palpation Location left shoulder area Palpation Findings Soft Tissue Tightness Tenderness Palpation Details mild tenderness right biceps tendon anterior shoulder, lateral bursa tenderness, tightness and tender left upper trap, mild tenderness left posterior shoulder Two Palpation Location Right biceps Palpation Findings Soft Tissue Tightness Tenderness Palpation Details tender with positive signs of tendonitis anterior shoulder, tightness with mass effect mid bicep, entire length of biceps tender to touch One Palpation Location Right shoulder area Palpation Findings Soft Tissue Tightness Tenderness Trigger Point Palpation Details tender AC joint, upper trap tender and tight, rhomboids tender and tight, scalenes tender PT-OP-K Range of Motion Start: 09/29/18 16:27 Freq: Status: Active Protocol: Document 09/29/18 10:30 DLM (Rec: 09/30/18 08:51 DLM [id number]) Cervical Spine Range of Motion Cervical Spine Active Percentage Testing Position Sitting Flexion 100 Extension 100 Rotation Left 75 Rotation Right 90 Lateral Flexion Left 50 Lateral Flexion Right 75 ROM Limitations Soft Tissue Tightness Comments no pain reported, only tightness Shoulder Goniometric Range of Motion Shoulder Right Active Shoulder ROM WFL Yes Testing Position Sitting Left Active Shoulder ROM WFL Yes Testing Position Sitting Shoulder ROM Limitations Shoulder ROM Limitations Pain Comments pain with right shoulder IR behind back, crepitus with left shoulder ER, positive for painful arc on right but negative on left PT-OP-L Special Tests Start: 09/29/18 16:27 Freq: Status: Active Protocol: Document 10/15/18 10:36 DLM (Rec: 10/15/18 17:41 DLM [id number]) Special Tests Shoulder Special Tests Elevation Impingement Test Results negative Comments bilateral PT-OP-M Strength Start: 09/29/18 16:27 Freq: Status: Active Protocol: Document 09/29/18 10:30 DLM (Rec: 09/30/18 08:55 DLM [id number]) Shoulder Strength Shoulder Manual Muscle Testing Right Flexion 4 Good Extension 5 Normal Abduction (C5) 4 Good Adduction 5 Normal External Rotation 5 Normal Internal Rotation 5 Normal Reason Not Measured Pain Comments pain with resisted flexion and abduction Left Flexion 4+ Good+ Extension 5 Normal Abduction (C5) 5 Normal Adduction 5 Normal External Rotation 5 Normal Internal Rotation 5 Normal Comments pain with resisted flexion Elbow/Forearm Strength Elbow and Forearm Manual Muscle Testing Right Flexion (C6) 5 Normal Extension (C7) 5 Normal Reason Not Measured Pain Comments pain with resisted elbow flexion Left Flexion (C6) 5 Normal Extension (C7) 5 Normal Reason Not Measured Pain Comments pain with resisted elbow flexion PT-OP-Q Treatments Start: 09/29/18 16:27 Freq: Status: Active Protocol: Document 11/17/18 12:23 GGD (Rec: 11/17/18 12:27 GGD [id number]) Cardio Equipment Upper Body Ergometer (UBE) Duration (Minutes) 6 RPM 80 Height chest level Other posterior motion only Gym Equipment Cable Column (Body Solid) standing squat row Resistance 20 Reps/Time 10x Therapeutic Exercises Supine Exercises serratus punch Resistance 2# Equipment Used foam roll Reps/Minutes 10x chest press Equipment Used 5# on wand Reps/Minutes 15 1 Supine Exercise Name Foam roll postural stretching Resistance passive Comments UE's at sides, T and over- head Prone Exercises horizoneal abd Equipment Used 2# Reps/Minutes 10x Comments verbal and manual cues 1 Prone Exercise Name scapular retraction Side bilateral Resistance active Equipment Used 2# Reps/Minutes 10 reps each Comments at sides and T Sidelying Exercises 2 Sidelying Exercise Name Shoulder ABD Side bilateral Resistance 2# 1 Sidelying Exercise Name Shoulder ER Side bilateral Equipment Used 2# Reps/Minutes to fatigue Standing Exercises 5 Standing Exercise Name Biceps stretch Side right Reps/Minutes 30 sec hold x 2 reps Comments arm on wall and turn body Manual Therapy Treatment Soft Tissue Mobilization 2 Body Location left shoulder area Mobilization Type Cross-Friction Myofascial Release Strumming Sustained Pressure Intensity/Depth Moderate Body Position Supine Comments including UT and pects PT-OP-R Modalities Start: 09/29/18 16:27 Freq: Status: Active Protocol: Document 11/17/18 12:23 GGD (Rec: 11/17/18 12:27 GGD [id number]) Ultrasound Therapy Treatment Right Shoulder Treatment Duration (minutes) 8 Patient Position Sitting Coupling Medium Ultrasound Gel Applicator Size (cm2) 10 Mode Setting Continuous Intensity Setting (w/cm2) 1.3 PT-OP-T Assessment and Plan Start: 09/29/18 16:27 Freq: Status: Active Protocol: Document 11/17/18 12:23 GGD (Rec: 11/17/18 12:27 GGD [id number]) Physical Therapy Assessment Assessment Summary Assessment Pt imrproving with strength. He had no C/O pain with exercise progression. Physical Therapy Plan Frequency and Duration Frequency of Treatment 2x/Week Duration of Treatment 8 weeks Plan of Care Start Date 09/29/18 Plan of Care End Date 11/24/18 Next Visit Focus/Plan Next Note Type Treatment Note Next Visit Plan continue ther ex progression, return to activity program
--- NOTE | 2018-11-19 12:00 | PT.OTN ---
Current Diagnoses Pain in right shoulder (11/19/18) Pain in left shoulder (11/19/18) Physical Therapy Treatment Note PT-OP-A Visit Information Start: 09/29/18 16:27 Freq: Status: Active Protocol: Document 11/19/18 10:31 SAK (Rec: 11/19/18 11:23 SAK [id number]) Out-Patient Physical Therapy Visit Information Visit Information Visit Type Treatment Note Visit Start Time 10:30 Visit Stop Time 11:15 Total Visit Minutes 45 Visit Number 13 Number of PATIENT ADMITTING CLERK Visits 0 Evaluation Information Evaluation Date 09/29/18 Precautions Precautions hx of back pain, bilateral carpal tunnel sx and seizures PT-OP-B Current Condition Start: 09/29/18 16:27 Freq: Status: Active Protocol: Document 09/29/18 10:30 DLM (Rec: 09/30/18 08:40 DLM [id number]) Current Condition History of Current Condition Onset Date gradual Current Complaints Bilateral shoulder pain with right worse than left History of Current Condition He reports sudden onset right shoulder pain and about two weeks later left shoulder pain . He has no known injury. The pain interferes with functional use of his arms. He has pain that affects his sleep. Prior Treatments and Tests x-rays showed mild arthritis Future Testing and Treatments Planned none reported Treatment Goals Patient/Caregiver Goals resolve his shoulder pain Prior Functional Status Baseline Function- ADL's Independent Baseline Function- Mobility Independent Baseline Function- Gait Independent without device, community distances Baseline Function- Work/School getting his bachelor degree online, desktop computer Baseline Function- Recreation/Hobbies Stretches for 45 min, 1 hr cardio workout, walking for 1. 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 Current Functional Impairments (Reported) Functional Limitations- ADL's Independent with pain in bilateral shoulders Functional Limitations- Mobility/Gait no changes reported Functional Limitations- Recreation/ pain with fencing especially Hobbies with reaching out motion Personal Factors Other Personal Factors That May Effect lost a lot of weight and Therapy/Recovery exercises now to keep the weight off PT-OP-C Subjective Start: 09/29/18 16:27 Freq: Status: Active Protocol: Document 11/19/18 10:31 SAK (Rec: 11/19/18 11:23 SAK [id number]) OP-PT Subjective Patient Comments Patient Comments Increased ache after PT PT-OP-F Manual Assessment Start: 09/29/18 16:27 Freq: Status: Active Protocol: Document 09/29/18 10:30 DLM (Rec: 09/30/18 08:56 DL [id number]) Manual Assessments Soft Tissue Assessment Soft Tissue Mobility Assessment sub-occipital tightness PT-OP-H Neuro Start: 09/29/18 16:27 Freq: Status: Active Protocol: Document 09/29/18 10:30 DLM (Rec: 09/30/18 08:56 DL [id number]) Sensation Evaluation Gross Sensation Gross Sensation WNL PT-OP-J Posture/Palpation/Skin Start: 09/29/18 16:27 Freq: Status: Active Protocol: Document 09/29/18 10:30 DLM (Rec: 09/30/18 08:47 DLM [id number]) Posture Evaluation Position Sitting Evaluation View Anterior Head/C-Spine Posture Forward Head Shoulder Posture (L) Rounded (R) Rounded Pelvis Posture Posterior Tilted Weight Distribution Balanced Palpation Assessment Location Three Palpation Location left shoulder area Palpation Findings Soft Tissue Tightness Tenderness Palpation Details mild tenderness right biceps tendon anterior shoulder, lateral bursa tenderness, tightness and tender left upper trap, mild tenderness left posterior shoulder Two Palpation Location Right biceps Palpation Findings Soft Tissue Tightness Tenderness Palpation Details tender with positive signs of tendonitis anterior shoulder, tightness with mass effect mid bicep, entire length of biceps tender to touch One Palpation Location Right shoulder area Palpation Findings Soft Tissue Tightness Tenderness Trigger Point Palpation Details tender AC joint, upper trap tender and tight, rhomboids tender and tight, scalenes tender PT-OP-K Range of Motion Start: 09/29/18 16:27 Freq: Status: Active Protocol: Document 09/29/18 10:30 DLM (Rec: 09/30/18 08:51 DL [id number]) Cervical Spine Range of Motion Cervical Spine Active Percentage Testing Position Sitting Flexion 100 Extension 100 Rotation Left 75 Rotation Right 90 Lateral Flexion Left 50 Lateral Flexion Right 75 ROM Limitations Soft Tissue Tightness Comments no pain reported, only tightness Shoulder Goniometric Range of Motion Shoulder Right Active Shoulder ROM WFL Yes Testing Position Sitting Left Active Shoulder ROM WFL Yes Testing Position Sitting Shoulder ROM Limitations Shoulder ROM Limitations Pain Comments pain with right shoulder IR behind back, crepitus with left shoulder ER, positive for painful arc on right but negative on left PT-OP-L Special Tests Start: 09/29/18 16:27 Freq: Status: Active Protocol: Document 10/15/18 10:36 DLM (Rec: 10/15/18 17:41 DLM [id number]) Special Tests Shoulder Special Tests Elevation Impingement Test Results negative Comments bilateral PT-OP-M Strength Start: 09/29/18 16:27 Freq: Status: Active Protocol: Document 09/29/18 10:30 DLM (Rec: 09/30/18 08:55 DLM [id number]) Shoulder Strength Shoulder Manual Muscle Testing Right Flexion 4 Good Extension 5 Normal Abduction (C5) 4 Good Adduction 5 Normal External Rotation 5 Normal Internal Rotation 5 Normal Reason Not Measured Pain Comments pain with resisted flexion and abduction Left Flexion 4+ Good+ Extension 5 Normal Abduction (C5) 5 Normal Adduction 5 Normal External Rotation 5 Normal Internal Rotation 5 Normal Comments pain with resisted flexion Elbow/Forearm Strength Elbow and Forearm Manual Muscle Testing Right Flexion (C6) 5 Normal Extension (C7) 5 Normal Reason Not Measured Pain Comments pain with resisted elbow flexion Left Flexion (C6) 5 Normal Extension (C7) 5 Normal Reason Not Measured Pain Comments pain with resisted elbow flexion PT-OP-Q Treatments Start: 09/29/18 16:27 Freq: Status: Active Protocol: Document 11/19/18 10:31 SAK (Rec: 11/19/18 11:23 SAK [id number]) Cardio Equipment Upper Body Ergometer (UBE) Duration (Minutes) 5 RPM 80 Height chest level Other posterior motion only Therapeutic Exercises Supine Exercises 1 Supine Exercise Name Foam roll postural stretching Resistance passive Comments UE's at sides, T and over- head Prone Exercises shld flex Reps/Minutes 10x Comments verbal and manual cues horizoneal abd Equipment Used 2# Reps/Minutes 10x Comments verbal and manual cues 1 Prone Exercise Name scapular retraction Side bilateral Resistance active Equipment Used 2# Reps/Minutes 10 reps each Comments at sides and T Sidelying Exercises 2 Sidelying Exercise Name Shoulder ABD Side bilateral Resistance 2# Standing Exercises Body blade Reps/Minutes 30 ea Comments guerda, unil in fencing stance 5 Standing Exercise Name Biceps stretch Side right Reps/Minutes 30 sec hold x 2 reps Comments arm on wall and turn body Self-Care/Home Management Treatment Education Patient Education Home Exercise Program Pain Management Posture Other Education alternating which hand holds book as tends to always use right UE and reads while walking modification of HEP PT-OP-R Modalities Start: 09/29/18 16:27 Freq: Status: Active Protocol: Document 11/19/18 10:31 [facility] (Rec: 11/19/18 11:23 [facility] [id number]) Ultrasound Therapy Treatment Right Shoulder Treatment Duration (minutes) 8 Patient Position Sitting Coupling Medium Ultrasound Gel Applicator Size (cm2) 10 Mode Setting Pulsed Intensity Setting (w/cm2) 1.2 Comments posterior shoulder; proximal lateral scapular border PT-OP-T Assessment and Plan Start: 09/29/18 16:27 Freq: Status: Active Protocol: Document 11/19/18 10:31 [facility] (Rec: 11/19/18 11:23 [facility] [id number]) Physical Therapy Assessment Goals Four Impairment Impaired functional use of shoulders, Quick Dash=50 Short Term Goal (STG) Quick Dash score improvement to <25 STG Duration 4 weeks Statement Services Representative Goal (LTG) Quick Dash score improvement to <10 LTG Duration 8 weeks Three Impairment Positive impingement signs right shoulder Short Term Goal (STG) Resolve impingement signs right shoulder STG Duration 6 weeks Mcc Goal (LTG) Demonstrate erect posture and improved postural awareness LTG Duration 8 weeks Two Impairment Impaired Strength Short Term Goal (STG) Increase his shoulder strength to at least 4+/5 without pain STG Duration 4 weeks Statement Services Representative Goal (LTG) Increase his bilateral shoulder strength to 5/5 without pain LTG Duration 8 weeks One Impairment Pain of 6/10 Short Term Goal (STG) Decrease his shoulder pain to less than or equal to 3/10 STG Duration 4 weeks Mcc Goal (LTG) Decrease shoulder pain to 0/10 with normal use LTG Duration 8 weeks Assessment Summary Assessment Questioning revealed patient reads while taking walks, holding book exclusively in his right UE forward and in front of him; feel this is likely highly contributory to his pain. Physical Therapy Plan Frequency and Duration Frequency of Treatment 2x/Week Duration of Treatment 8 weeks Plan of Care Start Date 09/29/18 Plan of Care End Date 11/24/18 Therapeutic Interventions Therapeutic Interventions Home Exercise Program Joint Mobilizations Manual Therapy Patient/Caregiver Education Self-Care/Home Management Soft Tissue Mobilization Taping Therapeutic Activities Therapeutic Exercises Modalities Cold Pack/Ice Massage Electric Stimulation Hot Packs Ultrasound Next Visit Focus/Plan Next Note Type Treatment Note Next Visit Plan Continue PT to decrease pain, improve strength and function right UE. Trigger point release lateral scapular border, assess joint mobility.
--- NOTE | 2018-11-24 17:15 | PT.OTN ---
Current Diagnoses Pain in right shoulder (11/24/18) Pain in left shoulder (11/24/18) Physical Therapy Treatment Note PT-OP-A Visit Information Start: 09/29/18 16:27 Freq: Status: Active Protocol: Document 11/24/18 10:29 SAK (Rec: 11/24/18 11:15 SAK [id number]) Out-Patient Physical Therapy Visit Information Visit Information Visit Type Treatment Note Visit Start Time 10:30 Visit Stop Time 11:15 Total Visit Minutes 53 Visit Number 14 Number of COMMAND AND CONTROL OFFICER Visits 0 Evaluation Information Evaluation Date 09/29/18 Precautions Precautions hx of back pain, bilateral carpal tunnel sx and seizures PT-OP-B Current Condition Start: 09/29/18 16:27 Freq: Status: Active Protocol: Document 09/29/18 10:30 DLM (Rec: 09/30/18 08:40 DLM [id number]) Current Condition History of Current Condition Onset Date gradual Current Complaints Bilateral shoulder pain with right worse than left History of Current Condition He reports sudden onset right shoulder pain and about two weeks later left shoulder pain . He has no known injury. The pain interferes with functional use of his arms. He has pain that affects his sleep. Prior Treatments and Tests x-rays showed mild arthritis Future Testing and Treatments Planned none reported Treatment Goals Patient/Caregiver Goals resolve his shoulder pain Prior Functional Status Baseline Function- ADL's Independent Baseline Function- Mobility Independent Baseline Function- Gait Independent without device, community distances Baseline Function- Work/School getting his bachelor degree online, desktop computer Baseline Function- Recreation/Hobbies Stretches for 45 min, 1 hr cardio workout, walking for 1. 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- Other he works as a [employer] Current Functional Impairments (Reported) Functional Limitations- ADL's Independent with pain in bilateral shoulders Functional Limitations- Mobility/Gait no changes reported Functional Limitations- Recreation/ pain with fencing especially Hobbies with reaching out motion Personal Factors Other Personal Factors That May Effect lost a lot of weight and Therapy/Recovery exercises now to keep the weight off PT-OP-C Subjective Start: 09/29/18 16:27 Freq: Status: Active Protocol: Document 11/24/18 10:29 SAK (Rec: 11/24/18 11:15 SAK [id number]) OP-PT Subjective Patient Comments Patient Comments I feel like we've made quite a bit of progress. [place] posterior right shoulder pain when reaching up to touch his 's back. States he hasn't changed how he holds his book when he walks which PT advised him was likely contributing to his pain. PT-OP-F Manual Assessment Start: 09/29/18 16:27 Freq: Status: Active Protocol: Document 09/29/18 10:30 DLM (Rec: 09/30/18 08:56 DLM [id number]) Manual Assessments Soft Tissue Assessment Soft Tissue Mobility Assessment sub-occipital tightness PT-OP-H Neuro Start: 09/29/18 16:27 Freq: Status: Active Protocol: Document 09/29/18 10:30 DLM (Rec: 09/30/18 08:56 DLM [id number]) Sensation Evaluation Gross Sensation Gross Sensation WNL PT-OP-J Posture/Palpation/Skin Start: 09/29/18 16:27 Freq: Status: Active Protocol: Document 09/29/18 10:30 DLM (Rec: 09/30/18 08:47 DLM [id number]) Posture Evaluation Position Sitting Evaluation View Anterior Head/C-Spine Posture Forward Head Shoulder Posture (L) Rounded (R) Rounded Pelvis Posture Posterior Tilted Weight Distribution Balanced Palpation Assessment Location Three Palpation Location left shoulder area Palpation Findings Soft Tissue Tightness Tenderness Palpation Details mild tenderness right biceps tendon anterior shoulder, lateral bursa tenderness, tightness and tender left upper trap, mild tenderness left posterior shoulder Two Palpation Location Right biceps Palpation Findings Soft Tissue Tightness Tenderness Palpation Details tender with positive signs of tendonitis anterior shoulder, tightness with mass effect mid bicep, entire length of biceps tender to touch One Palpation Location Right shoulder area Palpation Findings Soft Tissue Tightness Tenderness Trigger Point Palpation Details tender AC joint, upper trap tender and tight, rhomboids tender and tight, scalenes tender PT-OP-K Range of Motion Start: 09/29/18 16:27 Freq: Status: Active Protocol: Document 09/29/18 10:30 DLM (Rec: 09/30/18 08:51 DLM [id number]) Cervical Spine Range of Motion Cervical Spine Active Percentage Testing Position Sitting Flexion 100 Extension 100 Rotation Left 75 Rotation Right 90 Lateral Flexion Left 50 Lateral Flexion Right 75 ROM Limitations Soft Tissue Tightness Comments no pain reported, only tightness Shoulder Goniometric Range of Motion Shoulder Right Active Shoulder ROM WFL Yes Testing Position Sitting Left Active Shoulder ROM WFL Yes Testing Position Sitting Shoulder ROM Limitations Shoulder ROM Limitations Pain Comments pain with right shoulder IR behind back, crepitus with left shoulder ER, positive for painful arc on right but negative on left PT-OP-L Special Tests Start: 09/29/18 16:27 Freq: Status: Active Protocol: Document 10/15/18 10:36 DLM (Rec: 10/15/18 17:41 DLM [id number]) Special Tests Shoulder Special Tests Elevation Impingement Test Results negative Comments bilateral PT-OP-M Strength Start: 09/29/18 16:27 Freq: Status: Active Protocol: Document 09/29/18 10:30 DLM (Rec: 09/30/18 08:55 DLM [id number]) Shoulder Strength Shoulder Manual Muscle Testing Right Flexion 4 Good Extension 5 Normal Abduction (C5) 4 Good Adduction 5 Normal External Rotation 5 Normal Internal Rotation 5 Normal Reason Not Measured Pain Comments pain with resisted flexion and abduction Left Flexion 4+ Good+ Extension 5 Normal Abduction (C5) 5 Normal Adduction 5 Normal External Rotation 5 Normal Internal Rotation 5 Normal Comments pain with resisted flexion Elbow/Forearm Strength Elbow and Forearm Manual Muscle Testing Right Flexion (C6) 5 Normal Extension (C7) 5 Normal Reason Not Measured Pain Comments pain with resisted elbow flexion Left Flexion (C6) 5 Normal Extension (C7) 5 Normal Reason Not Measured Pain Comments pain with resisted elbow flexion PT-OP-Q Treatments Start: 09/29/18 16:27 Freq: Status: Active Protocol: Document 11/24/18 10:29 SHANE (Rec: 11/24/18 11:15 [facility] [id number]) Cardio Equipment Upper Body Ergometer (UBE) Duration (Minutes) 5 RPM 70 Height chest level Other posterior motion only Therapeutic Exercises Supine Exercises horizontal ab/ad Resistance 2# Reps/Minutes to fatigue serratus punch Resistance 2# Equipment Used foam roll Reps/Minutes 10x 1 Supine Exercise Name Foam roll postural stretching Resistance passive Comments UE's at sides, T and over- head Prone Exercises Shoulder ER Reps/Minutes to fatigue Comments (limited ROM right) horizoneal abd Equipment Used 2# Reps/Minutes to fatigue Comments verbal and manual cues 1 Prone Exercise Name scapular retraction Side bilateral Resistance active Equipment Used 2# Reps/Minutes to fatigue Comments at sides and T Sidelying Exercises 2 Sidelying Exercise Name Shoulder ABD Side bilateral Resistance 2# 1 Sidelying Exercise Name Shoulder ER Side bilateral Equipment Used 2# Reps/Minutes to fatigue Standing Exercises Body blade Reps/Minutes 30 ea Comments guerda, unil in fencing stance 5 Standing Exercise Name Biceps stretch Side right Reps/Minutes 30 sec hold x 2 reps Comments arm on wall and turn body Manual Therapy Treatment Taping star pattern posterior right shoulder Treatment Focus pain relief Type of Tape kinesiotape Skin Inspection intact Comments 3 I strips (3 squares long) Self-Care/Home Management Treatment Education Other Education alternating which hand holds book as tends to always use right UE and reads while walking modification of HEP PT-OP-R Modalities Start: 09/29/18 16:27 Freq: Status: Active Protocol: Document 11/24/18 10:29 SAK (Rec: 11/24/18 11:15 [facility] [id number]) Ultrasound Therapy Treatment Right Shoulder Treatment Duration (minutes) 8 Patient Position Sitting Coupling Medium Ultrasound Gel Applicator Size (cm2) 10 Mode Setting Pulsed Intensity Setting (w/cm2) 1.2 Comments posterior shoulder; proximal lateral scapular border PT-OP-T Assessment and Plan Start: 09/29/18 16:27 Freq: Status: Active Protocol: Document 11/24/18 10:29 SAK (Rec: 11/24/18 11:15 [facility] [id number]) Physical Therapy Assessment Goals Four Impairment Impaired functional use of shoulders, Quick Dash=50 Short Term Goal (STG) Quick Dash score improvement to <25 STG Duration 4 weeks Inspector Metal Can Goal (LTG) Quick Dash score improvement to <10 LTG Duration 8 weeks Three Impairment Positive impingement signs right shoulder Short Term Goal (STG) Resolve impingement signs right shoulder STG Duration 6 weeks Half-Way Goal (LTG) Demonstrate erect posture and improved postural awareness LTG Duration 8 weeks Two Impairment Impaired Strength Short Term Goal (STG) Increase his shoulder strength to at least 4+/5 without pain STG Duration 4 weeks Inspector Metal Can Goal (LTG) Increase his bilateral shoulder strength to 5/5 without pain LTG Duration 8 weeks One Impairment Pain of 6/10 Short Term Goal (STG) Decrease his shoulder pain to less than or equal to 3/10 STG Duration 4 weeks Half-Way Goal (LTG) Decrease shoulder pain to 0/10 with normal use LTG Duration 8 weeks Assessment Summary Assessment Patient has not yet modified his use of right UE to hold book while walking. Reports anterior shoulder pain mostly gone now so feels it was blocking the pain posteriorly in his shoulder. Physical Therapy Plan Frequency and Duration Frequency of Treatment 2x/Week Duration of Treatment 8 weeks Plan of Care Start Date 09/29/18 Plan of Care End Date 11/24/18 Therapeutic Interventions Therapeutic Interventions Home Exercise Program Joint Mobilizations Manual Therapy Patient/Caregiver Education Self-Care/Home Management Soft Tissue Mobilization Taping Therapeutic Activities Therapeutic Exercises Modalities Cold Pack/Ice Massage Electric Stimulation Hot Packs Ultrasound Next Visit Focus/Plan Next Note Type Treatment Note Next Visit Plan Continue PT to decrease pain, improve strength and function right UE.
--- NOTE | 2018-12-03 11:54 | PT.OTN ---
Current Diagnoses Pain in right shoulder (12/03/18) Pain in left shoulder (12/03/18) Physical Therapy Treatment Note PT-OP-A Visit Information Start: 09/29/18 16:27 Freq: Status: Active Protocol: Document 12/03/18 11:15 DCW (Rec: 12/03/18 11:54 DCW [id number]) Out-Patient Physical Therapy Visit Information Visit Information Visit Type Progress Note Visit Start Time 11:15 Visit Stop Time 11:47 Total Visit Minutes 32 Visit Number 15 Number of GRASSLAND CONSERVATIONIST Visits 0 Evaluation Information Evaluation Date 09/29/18 Precautions Precautions hx of back pain, bilateral carpal tunnel sx and seizures PT-OP-B Current Condition Start: 09/29/18 16:27 Freq: Status: Active Protocol: Document 09/29/18 10:30 DLM (Rec: 09/30/18 08:40 DLM [id number]) Current Condition History of Current Condition Onset Date gradual Current Complaints Bilateral shoulder pain with right worse than left History of Current Condition He reports sudden onset right shoulder pain and about two weeks later left shoulder pain . He has no known injury. The pain interferes with functional use of his arms. He has pain that affects his sleep. Prior Treatments and Tests x-rays showed mild arthritis Future Testing and Treatments Planned none reported Treatment Goals Patient/Caregiver Goals resolve his shoulder pain Prior Functional Status Baseline Function- ADL's Independent Baseline Function- Mobility Independent Baseline Function- Gait Independent without device, community distances Baseline Function- Work/School getting his bachelor degree online, desktop computer Baseline Function- Recreation/Hobbies Stretches for 45 min, 1 hr cardio workout, walking for 1. 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 Current Functional Impairments (Reported) Functional Limitations- ADL's Independent with pain in bilateral shoulders Functional Limitations- Mobility/Gait no changes reported Functional Limitations- Recreation/ pain with fencing especially Hobbies with reaching out motion Personal Factors Other Personal Factors That May Effect lost a lot of weight and Therapy/Recovery exercises now to keep the weight off PT-OP-C Subjective Start: 09/29/18 16:27 Freq: Status: Active Protocol: Document 12/03/18 11:15 DCW (Rec: 12/03/18 11:54 DCW [id number]) OP-PT Subjective Patient Comments Patient Comments Pt's symptoms largely improved . Continues to have mild, 1-3/ 10 pain in bilateral anterior shoulders at LH biceps tendon area. PT-OP-F Manual Assessment Start: 09/29/18 16:27 Freq: Status: Active Protocol: Document 09/29/18 10:30 DLM (Rec: 09/30/18 08:56 DLM [id number]) Manual Assessments Soft Tissue Assessment Soft Tissue Mobility Assessment sub-occipital tightness PT-OP-H Neuro Start: 09/29/18 16:27 Freq: Status: Active Protocol: Document 09/29/18 10:30 DLM (Rec: 09/30/18 08:56 DLM [id number]) Sensation Evaluation Gross Sensation Gross Sensation WNL PT-OP-J Posture/Palpation/Skin Start: 09/29/18 16:27 Freq: Status: Active Protocol: Document 12/03/18 11:15 DCW (Rec: 12/03/18 11:45 DCW [id number]) Posture Evaluation Position Sitting Evaluation View Anterior Head/C-Spine Posture Forward Head Shoulder Posture (L) Rounded (R) Rounded Pelvis Posture Posterior Tilted Weight Distribution Balanced Palpation Assessment Location Three Palpation Location L shoulder Palpation Details Pain at LH Biceps tendon, in strap pattern across acrimoclavicular arch One Palpation Location R shoulder Palpation Details Pain at LH Biceps tendon, in strap pattern across acrimoclavicular arch PT-OP-K Range of Motion Start: 09/29/18 16:27 Freq: Status: Active Protocol: Document 12/03/18 11:15 DCW (Rec: 12/03/18 11:45 DCW [id number]) Shoulder Goniometric Range of Motion Shoulder Right Active Shoulder ROM WFL Yes Testing Position Sitting Left Active Shoulder ROM WFL Yes Testing Position Sitting Shoulder ROM Limitations Comments negative painful arc PT-OP-L Special Tests Start: 09/29/18 16:27 Freq: Status: Active Protocol: Document 12/03/18 11:15 DCW (Rec: 12/03/18 11:45 DCW [id number]) Special Tests Shoulder Special Tests Drop Arm Rotator Cuff Test Results negative bilaterally Elevation Impingement Test Results negative Apprehension Test Test Results negative bilaterally PT-OP-M Strength Start: 09/29/18 16:27 Freq: Status: Active Protocol: Document 12/03/18 11:15 DCW (Rec: 12/03/18 11:45 DCW [id number]) Shoulder Strength Shoulder Manual Muscle Testing Right Flexion 4+ Good+ Extension 5 Normal Abduction (C5) 4 Good Adduction 5 Normal External Rotation 5 Normal Internal Rotation 5 Normal Reason Not Measured Pain Comments pain with resisted abduction Left Flexion 4+ Good+ Extension 5 Normal Abduction (C5) 5 Normal Adduction 5 Normal External Rotation 5 Normal Internal Rotation 5 Normal Comments pain with resisted flexion Elbow/Forearm Strength Elbow and Forearm Manual Muscle Testing Right Flexion (C6) 5 Normal Extension (C7) 5 Normal Comments no associated pain Left Flexion (C6) 5 Normal Extension (C7) 5 Normal Comments no associated pain PT-OP-Q Treatments Start: 09/29/18 16:27 Freq: Status: Active Protocol: Document 12/03/18 11:15 DCW (Rec: 12/03/18 11:54 DCW [id number]) Manual Therapy Treatment Other Other Manual Treatments Manual ROM, Strength testing, manual assessment PT-OP-R Modalities Start: 09/29/18 16:27 Freq: Status: Active Protocol: Document 11/24/18 10:29 SAK (Rec: 11/24/18 11:15 SAK [id number]) Ultrasound Therapy Treatment Right Shoulder Treatment Duration (minutes) 8 Patient Position Sitting Coupling Medium Ultrasound Gel Applicator Size (cm2) 10 Mode Setting Pulsed Intensity Setting (w/cm2) 1.2 Comments posterior shoulder; proximal lateral scapular border PT-OP-T Assessment and Plan Start: 09/29/18 16:27 Freq: Status: Active Protocol: Document 12/03/18 11:15 DCW (Rec: 12/03/18 11:54 DCW [id number]) Physical Therapy Assessment Impairments Impairments Activity Tolerance Functional Activities Pain Posture ROM Soft Tissue Mobility Strength Goals Four Impairment Impaired functional use of shoulders, Quick Dash=50 Short Term Goal (STG) Quick Dash score improvement to <25 STG Duration 4 weeks Retirement Goal (LTG) Quick Dash score improvement to <10 LTG Duration 8 weeks Three Impairment Positive impingement signs right shoulder Short Term Goal (STG) Resolve impingement signs right shoulder STG Duration 6 weeks Retirement Goal (LTG) Demonstrate erect posture and improved postural awareness LTG Duration 8 weeks Two Impairment Impaired Strength Short Term Goal (STG) Increase his shoulder strength to at least 4+/5 without pain STG Duration 4 weeks Breaker Up Goal (LTG) Increase his bilateral shoulder strength to 5/5 without pain LTG Duration 8 weeks One Impairment Pain of 6/10 Short Term Goal (STG) Decrease his shoulder pain to less than or equal to 3/10 STG Duration 4 weeks Retirement Goal (LTG) Decrease shoulder pain to 0/10 with normal use LTG Duration 8 weeks Progress Towards Goals Progress Towards Goals Progressing Toward Goals Assessment Summary Assessment Pt's remaining pain appears to be a result of mild bicipital tendonitis, recommended to pt to focus on rest and ice, and instructed on lifting with using minimal biceps activation. Pt anxious to get back to activity. Pt is likely close to discharge, will attempt to go two weeks without therapy, begin to add in mild activity, and assess level of pain at appointment in two weeks. Physical Therapy Plan Frequency and Duration Frequency of Treatment 2x/Week Duration of Treatment 6 weeks Plan of Care Start Date 12/03/18 Plan of Care End Date 01/14/19 Therapeutic Interventions Therapeutic Interventions Home Exercise Program Joint Mobilizations Manual Therapy Patient/Caregiver Education Self-Care/Home Management Soft Tissue Mobilization Taping Therapeutic Activities Therapeutic Exercises Modalities Cold Pack/Ice Massage Electric Stimulation Hot Packs Ultrasound Next Visit Focus/Plan Next Note Type Treatment Note Next Visit Plan Continue PT to decrease pain, improve strength and function right UE.
--- NOTE | 2018-12-03 11:56 | PT.OPPOC ---
Current Diagnoses Pain in right shoulder (12/03/18) Pain in left shoulder (12/03/18) Provider Visit Care Team Role Provider Type Jessica Tuttle PA-C Attending Provider Advanced Steelscope Operator Family Provider Primary Care Provider Specialty: Medical Address: [address] [place] [address], [id number] Email: [email or web address] Plan Of Care PT-OP-T Assessment and Plan Start: 09/29/18 16:27 Freq: Status: Active Protocol: Document 12/03/18 11:15 DCW (Rec: 12/03/18 11:54 DCW [id number]) Physical Therapy Assessment Impairments Impairments Activity Tolerance Functional Activities Pain Posture ROM Soft Tissue Mobility Strength Goals Four Impairment Impaired functional use of shoulders, Quick Dash=50 Short Term Goal (STG) Quick Dash score improvement to <25 STG Duration 4 weeks Penitentiary Goal (LTG) Quick Dash score improvement to <10 LTG Duration 8 weeks Three Impairment Positive impingement signs right shoulder Short Term Goal (STG) Resolve impingement signs right shoulder STG Duration Met Cloth Dyer Goal (LTG) Demonstrate erect posture and improved postural awareness LTG Duration 8 weeks Two Impairment Impaired Strength Short Term Goal (STG) Increase his shoulder strength to at least 4+/5 without pain STG Duration [employer] Dyer Goal (LTG) Increase his bilateral shoulder strength to 5/5 without pain LTG Duration 8 weeks One Impairment Pain of 6/10 Short Term Goal (STG) Decrease his shoulder pain to less than or equal to 3/10 STG Duration [employer] Dyer Goal (LTG) Decrease shoulder pain to 0/10 with normal use LTG Duration 8 weeks Progress Towards Goals Progress Towards Goals Progressing Toward Goals Assessment Summary Assessment Pt's remaining pain appears to be a result of mild bicipital tendonitis, recommended to pt to focus on rest and ice, and instructed on lifting with using minimal biceps activation. Pt anxious to get back to activity. Pt is likely close to discharge, will attempt to go two weeks without therapy, begin to add in mild activity, and assess level of pain at appointment in two weeks. Physical Therapy Plan Frequency and Duration Frequency of Treatment 2x/Week Duration of Treatment 6 weeks Plan of Care Start Date 12/03/18 Plan of Care End Date 01/14/19 Therapeutic Interventions Therapeutic Interventions Home Exercise Program Joint Mobilizations Manual Therapy Patient/Caregiver Education Self-Care/Home Management Soft Tissue Mobilization Taping Therapeutic Activities Therapeutic Exercises Modalities Cold Pack/Ice Massage Electric Stimulation Hot Packs Ultrasound Next Visit Focus/Plan Next Note Type Treatment Note Next Visit Plan Continue PT to decrease pain, improve strength and function right UE. Plan of Care Dates Plan of Care Start Date 12/03/18 Plan of Care End Date 01/14/19 Please Sign and Return: I have reviewed this Plan of Care and certify that the skilled therapy services above are required to meet the patient?s needs. Physician Signature Date Printed Name and Credentials Clinical Instructor Signature Printed Name and Credentials
--- NOTE | 2018-12-15 16:34 | PT.OTN ---
Current Diagnoses Pain in right shoulder (12/15/18) Pain in left shoulder (12/15/18) Physical Therapy Treatment Note PT-OP-A Visit Information Start: 09/29/18 16:27 Freq: Status: Active Protocol: Document 12/15/18 13:46 SAK (Rec: 12/15/18 14:30 SAK [id number]) Out-Patient Physical Therapy Visit Information Visit Information Visit Type Treatment Note Visit Start Time 13:45 Visit Stop Time 14:30 Total Visit Minutes 45 Visit Number 16 Number of SENIOR WEB ARCHITECT Visits 0 Evaluation Information Evaluation Date 09/29/18 Precautions Precautions hx of back pain, bilateral carpal tunnel sx and seizures PT-OP-B Current Condition Start: 09/29/18 16:27 Freq: Status: Active Protocol: Document 09/29/18 10:30 DLM (Rec: 09/30/18 08:40 DLM [id number]) Current Condition History of Current Condition Onset Date gradual Current Complaints Bilateral shoulder pain with right worse than left History of Current Condition He reports sudden onset right shoulder pain and about two weeks later left shoulder pain . He has no known injury. The pain interferes with functional use of his arms. He has pain that affects his sleep. Prior Treatments and Tests x-rays showed mild arthritis Future Testing and Treatments Planned none reported Treatment Goals Patient/Caregiver Goals resolve his shoulder pain Prior Functional Status Baseline Function- ADL's Independent Baseline Function- Mobility Independent Baseline Function- Gait Independent without device, community distances Baseline Function- Work/School getting his bachelor degree online, desktop computer Baseline Function- Recreation/Hobbies Stretches for 45 min, 1 hr cardio workout, walking for 1. 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 Current Functional Impairments (Reported) Functional Limitations- ADL's Independent with pain in bilateral shoulders Functional Limitations- Mobility/Gait no changes reported Functional Limitations- Recreation/ pain with fencing especially Hobbies with reaching out motion Personal Factors Other Personal Factors That May Effect lost a lot of weight and Therapy/Recovery exercises now to keep the weight off PT-OP-C Subjective Start: 09/29/18 16:27 Freq: Status: Active Protocol: Document 12/15/18 13:46 SAK (Rec: 12/15/18 14:30 SAK [id number]) OP-PT Subjective Patient Comments Patient Comments 2 days ago hurt so badly couldn't sleep, no pain since then. since last seen pain improving. Continue with HEP, carrying book, with left hand . PT-OP-F Manual Assessment Start: 09/29/18 16:27 Freq: Status: Active Protocol: Document 09/29/18 10:30 DLM (Rec: 09/30/18 08:56 DLM [id number]) Manual Assessments Soft Tissue Assessment Soft Tissue Mobility Assessment sub-occipital tightness PT-OP-H Neuro Start: 09/29/18 16:27 Freq: Status: Active Protocol: Document 09/29/18 10:30 DLM (Rec: 09/30/18 08:56 DLM [id number]) Sensation Evaluation Gross Sensation Gross Sensation WNL PT-OP-J Posture/Palpation/Skin Start: 09/29/18 16:27 Freq: Status: Active Protocol: Document 12/03/18 11:15 DCW (Rec: 12/03/18 11:45 DCW [id number]) Posture Evaluation Position Sitting Evaluation View Anterior Head/C-Spine Posture Forward Head Shoulder Posture (L) Rounded (R) Rounded Pelvis Posture Posterior Tilted Weight Distribution Balanced Palpation Assessment Location Three Palpation Location L shoulder Palpation Details Pain at LH Biceps tendon, in strap pattern across acrimoclavicular arch One Palpation Location R shoulder Palpation Details Pain at LH Biceps tendon, in strap pattern across acrimoclavicular arch PT-OP-K Range of Motion Start: 09/29/18 16:27 Freq: Status: Active Protocol: Document 12/03/18 11:15 DCW (Rec: 12/03/18 11:45 DCW [id number]) Shoulder Goniometric Range of Motion Shoulder Right Active Shoulder ROM WFL Yes Testing Position Sitting Left Active Shoulder ROM WFL Yes Testing Position Sitting Shoulder ROM Limitations Comments negative painful arc PT-OP-L Special Tests Start: 09/29/18 16:27 Freq: Status: Active Protocol: Document 12/03/18 11:15 DCW (Rec: 12/03/18 11:45 DCW [id number]) Special Tests Shoulder Special Tests Drop Arm Rotator Cuff Test Results negative bilaterally Elevation Impingement Test Results negative Apprehension Test Test Results negative bilaterally PT-OP-M Strength Start: 09/29/18 16:27 Freq: Status: Active Protocol: Document 12/03/18 11:15 DCW (Rec: 12/03/18 11:45 DCW [id number]) Shoulder Strength Shoulder Manual Muscle Testing Right Flexion 4+ Good+ Extension 5 Normal Abduction (C5) 4 Good Adduction 5 Normal External Rotation 5 Normal Internal Rotation 5 Normal Reason Not Measured Pain Comments pain with resisted abduction Left Flexion 4+ Good+ Extension 5 Normal Abduction (C5) 5 Normal Adduction 5 Normal External Rotation 5 Normal Internal Rotation 5 Normal Comments pain with resisted flexion Elbow/Forearm Strength Elbow and Forearm Manual Muscle Testing Right Flexion (C6) 5 Normal Extension (C7) 5 Normal Comments no associated pain Left Flexion (C6) 5 Normal Extension (C7) 5 Normal Comments no associated pain PT-OP-Q Treatments Start: 09/29/18 16:27 Freq: Status: Active Protocol: Document 12/15/18 13:46 SAK (Rec: 12/15/18 14:30 [facility] [id number]) Therapeutic Exercises Supine Exercises horizontal ab/ad Resistance 2# Reps/Minutes to fatigue serratus punch Resistance 2# Equipment Used foam roll Reps/Minutes 10x Prone Exercises Shoulder ER Reps/Minutes to fatigue Comments (limited ROM right) shld flex Reps/Minutes 10x Comments verbal and manual cues horizoneal abd Equipment Used 2# Reps/Minutes to fatigue Comments verbal and manual cues 1 Prone Exercise Name scapular retraction Side bilateral Resistance active Equipment Used 2# Reps/Minutes to fatigue Comments at sides and T Sidelying Exercises 2 Sidelying Exercise Name Shoulder ABD Side bilateral Resistance 2# 1 Sidelying Exercise Name Shoulder ER Side bilateral Equipment Used 2# Reps/Minutes to fatigue Standing Exercises standing foil thrust Resistance L1 TB Reps/Minutes 10x 4 Standing Exercise Name Shoulder IR Side bilateral Resistance L3 exercise band Reps/Minutes 15 reps each side 3 Standing Exercise Name Shoulder ER Side bilateral Resistance L3 exercise band Reps/Minutes 15 reps each PT-OP-R Modalities Start: 09/29/18 16:27 Freq: Status: Active Protocol: Document 12/15/18 13:46 SAK (Rec: 12/15/18 14:30 SAK [id number]) Ultrasound Therapy Treatment Right Shoulder Treatment Duration (minutes) 8 Patient Position Sitting Coupling Medium Ultrasound Gel Applicator Size (cm2) 10 Mode Setting Pulsed Intensity Setting (w/cm2) 1.2 Comments posterior shoulder; proximal lateral scapular border PT-OP-T Assessment and Plan Start: 09/29/18 16:27 Freq: Status: Active Protocol: Document 12/15/18 13:46 SHANE (Rec: 12/15/18 14:30 SAK [id number]) Physical Therapy Assessment Goals Four Impairment Impaired functional use of shoulders, Quick Dash=50 Short Term Goal (STG) Quick Dash score improvement to <25 STG Duration 4 weeks [facility] Goal (LTG) Quick Dash score improvement to <10 LTG Duration 8 weeks Three Impairment Positive impingement signs right shoulder Short Term Goal (STG) Resolve impingement signs right shoulder STG Duration Met Power Saw Mechanic Goal (LTG) Demonstrate erect posture and improved postural awareness LTG Duration 8 weeks Two Impairment Impaired Strength Short Term Goal (STG) Increase his shoulder strength to at least 4+/5 without pain STG Duration Met [facility] Goal (LTG) Increase his bilateral shoulder strength to 5/5 without pain LTG Duration 8 weeks One Impairment Pain of 6/10 Short Term Goal (STG) Decrease his shoulder pain to less than or equal to 3/10 STG Duration Met [facility] Goal (LTG) Decrease shoulder pain to 0/10 with normal use LTG Duration 8 weeks Progress Towards Goals Progress Towards Goals Progressing Toward Goals Assessment Summary Assessment Able to increase to level 3 theraband with ther exercises, improving scapular control. Cues for setting posture prior to ex. Overall good progress Physical Therapy Plan Frequency and Duration Frequency of Treatment 2x/Week Duration of Treatment 6 weeks Plan of Care Start Date 12/03/18 Plan of Care End Date 01/14/19 Therapeutic Interventions Therapeutic Interventions Home Exercise Program Joint Mobilizations Manual Therapy Patient/Caregiver Education Self-Care/Home Management Soft Tissue Mobilization Taping Therapeutic Activities Therapeutic Exercises Modalities Cold Pack/Ice Massage Electric Stimulation Hot Packs Ultrasound Next Visit Focus/Plan Next Note Type Treatment Note Next Visit Plan Continue PT to decrease pain, improve strength and function right UE.
--- NOTE | 2018-12-22 10:53 | PT.OTN ---
Current Diagnoses Pain in right shoulder (12/22/18) Pain in left shoulder (12/22/18) Physical Therapy Treatment Note PT-OP-A Visit Information Start: 09/29/18 16:27 Freq: Status: Active Protocol: Document 12/22/18 08:13 SAK (Rec: 12/22/18 08:19 SAK [id number]) Out-Patient Physical Therapy Visit Information Visit Information Visit Type Treatment Note Visit Start Time 08:15 Visit Stop Time 09:00 Total Visit Minutes 54 Visit Number 17 Number of ENVIRONMENTAL ENGINEERING AIDE Visits 0 Evaluation Information Evaluation Date 09/29/18 Precautions Precautions hx of back pain, bilateral carpal tunnel sx and seizures PT-OP-B Current Condition Start: 09/29/18 16:27 Freq: Status: Active Protocol: Document 09/29/18 10:30 DLM (Rec: 09/30/18 08:40 DLM [id number]) Current Condition History of Current Condition Onset Date gradual Current Complaints Bilateral shoulder pain with right worse than left History of Current Condition He reports sudden onset right shoulder pain and about two weeks later left shoulder pain . He has no known injury. The pain interferes with functional use of his arms. He has pain that affects his sleep. Prior Treatments and Tests x-rays showed mild arthritis Future Testing and Treatments Planned none reported Treatment Goals Patient/Caregiver Goals resolve his shoulder pain Prior Functional Status Baseline Function- ADL's Independent Baseline Function- Mobility Independent Baseline Function- Gait Independent without device, community distances Baseline Function- Work/School getting his bachelor degree online, desktop computer Baseline Function- Recreation/Hobbies Stretches for 45 min, 1 hr cardio workout, walking for 1. 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 Current Functional Impairments (Reported) Functional Limitations- ADL's Independent with pain in bilateral shoulders Functional Limitations- Mobility/Gait no changes reported Functional Limitations- Recreation/ pain with fencing especially Hobbies with reaching out motion Personal Factors Other Personal Factors That May Effect lost a lot of weight and Therapy/Recovery exercises now to keep the weight off PT-OP-C Subjective Start: 09/29/18 16:27 Freq: Status: Active Protocol: Document 12/22/18 08:13 SAK (Rec: 12/22/18 08:19 SAK [id number]) OP-PT Subjective Patient Comments Patient Comments overall better, still some ache, especially with more dynamic motions. Icing more. comfortable with HEP. Agreeable to discharge at this time. PT-OP-F Manual Assessment Start: 09/29/18 16:27 Freq: Status: Active Protocol: Document 09/29/18 10:30 DLM (Rec: 09/30/18 08:56 DLM [id number]) Manual Assessments Soft Tissue Assessment Soft Tissue Mobility Assessment sub-occipital tightness PT-OP-H Neuro Start: 09/29/18 16:27 Freq: Status: Active Protocol: Document 09/29/18 10:30 DLM (Rec: 09/30/18 08:56 DLM [id number]) Sensation Evaluation Gross Sensation Gross Sensation WNL PT-OP-J Posture/Palpation/Skin Start: 09/29/18 16:27 Freq: Status: Active Protocol: Document 12/03/18 11:15 DCW (Rec: 12/03/18 11:45 DCW [id number]) Posture Evaluation Position Sitting Evaluation View Anterior Head/C-Spine Posture Forward Head Shoulder Posture (L) Rounded (R) Rounded Pelvis Posture Posterior Tilted Weight Distribution Balanced Palpation Assessment Location Three Palpation Location L shoulder Palpation Details Pain at LH Biceps tendon, in strap pattern across acrimoclavicular arch One Palpation Location R shoulder Palpation Details Pain at LH Biceps tendon, in strap pattern across acrimoclavicular arch PT-OP-K Range of Motion Start: 09/29/18 16:27 Freq: Status: Active Protocol: Document 12/03/18 11:15 DCW (Rec: 12/03/18 11:45 DCW [id number]) Shoulder Goniometric Range of Motion Shoulder Right Active Shoulder ROM WFL Yes Testing Position Sitting Left Active Shoulder ROM WFL Yes Testing Position Sitting Shoulder ROM Limitations Comments negative painful arc PT-OP-L Special Tests Start: 09/29/18 16:27 Freq: Status: Active Protocol: Document 12/03/18 11:15 DCW (Rec: 12/03/18 11:45 DCW [id number]) Special Tests Shoulder Special Tests Drop Arm Rotator Cuff Test Results negative bilaterally Elevation Impingement Test Results negative Apprehension Test Test Results negative bilaterally PT-OP-M Strength Start: 09/29/18 16:27 Freq: Status: Active Protocol: Document 12/03/18 11:15 DCW (Rec: 12/03/18 11:45 DCW [id number]) Shoulder Strength Shoulder Manual Muscle Testing Right Flexion 4+ Good+ Extension 5 Normal Abduction (C5) 4 Good Adduction 5 Normal External Rotation 5 Normal Internal Rotation 5 Normal Reason Not Measured Pain Comments pain with resisted abduction Left Flexion 4+ Good+ Extension 5 Normal Abduction (C5) 5 Normal Adduction 5 Normal External Rotation 5 Normal Internal Rotation 5 Normal Comments pain with resisted flexion Elbow/Forearm Strength Elbow and Forearm Manual Muscle Testing Right Flexion (C6) 5 Normal Extension (C7) 5 Normal Comments no associated pain Left Flexion (C6) 5 Normal Extension (C7) 5 Normal Comments no associated pain PT-OP-Q Treatments Start: 09/29/18 16:27 Freq: Status: Active Protocol: Document 12/22/18 08:13 SHANE (Rec: 12/22/18 10:49 [facility] [id number]) Therapeutic Exercises Supine Exercises 1 Supine Exercise Name Foam roll postural stretching Resistance passive Comments UE's at sides, T and over- head Prone Exercises Shoulder ER Reps/Minutes to fatigue Comments (limited ROM right) shld flex Reps/Minutes 10x Comments verbal and manual cues horizoneal abd Equipment Used 2# Reps/Minutes to fatigue Comments verbal and manual cues 1 Prone Exercise Name scapular retraction Side bilateral Resistance active Equipment Used 2# Reps/Minutes to fatigue Comments at sides and T Sidelying Exercises 1 Sidelying Exercise Name Shoulder ER Side bilateral Equipment Used 3# Reps/Minutes to fatigue Manual Therapy Treatment Soft Tissue Mobilization 2 Body Location left shoulder area Mobilization Type Cross-Friction Myofascial Release Strumming Sustained Pressure Intensity/Depth Moderate Body Position Supine Comments including UT and pects Joint Mobilizations upper thoracic spine Direction PA's Grade III Body Position Prone 1 Direction post and inferior Grade III Body Position Supine PT-OP-R Modalities Start: 09/29/18 16:27 Freq: Status: Active Protocol: Document 12/22/18 08:13 SHANE (Rec: 12/22/18 08:19 SAK [id number]) Electric Stimulation Electric Stimulation Interferential Current (IFC) Body Location right shoulder Duration (Minutes) 10 Target/Sweep Sweep Combined With Heat/Cold Cold Pack Ultrasound Therapy Treatment Right Shoulder Treatment Duration (minutes) 8 Patient Position Sitting Coupling Medium Ultrasound Gel Applicator Size (cm2) 10 Mode Setting Pulsed Intensity Setting (w/cm2) 1.2 Comments posterior shoulder; proximal lateral scapular border PT-OP-T Assessment and Plan Start: 09/29/18 16:27 Freq: Status: Active Protocol: Document 12/22/18 08:13 SHANE (Rec: 12/22/18 08:19 [facility] [id number]) Physical Therapy Assessment Goals Four Impairment Impaired functional use of shoulders, Quick Dash=50 Short Term Goal (STG) Quick Dash score improvement to <25 STG Duration 4 weeks Nursing Home Goal (LTG) Quick Dash score improvement to <10 LTG Duration 8 weeks Three Impairment Positive impingement signs right shoulder Short Term Goal (STG) Resolve impingement signs right shoulder STG Duration Met Nursing Home Goal (LTG) Demonstrate erect posture and improved postural awareness LTG Duration 8 weeks Two Impairment Impaired Strength Short Term Goal (STG) Increase his shoulder strength to at least 4+/5 without pain STG Duration Met Assessment Consultant Goal (LTG) Increase his bilateral shoulder strength to 5/5 without pain LTG Duration 8 weeks One Impairment Pain of 6/10 Short Term Goal (STG) Decrease his shoulder pain to less than or equal to 3/10 STG Duration Met Assessment Consultant Goal (LTG) Decrease shoulder pain to 0/10 with normal use LTG Duration 8 weeks Progress Towards Goals Progress Towards Goals Progressing Toward Goals Assessment Summary Assessment Good progress, still with some aching with more dynamic movements, demonstrated good understanding of need to ease into those activities. REcommend follow-up appointment in 3-4 weeks to make adjustments to Physical Therapy Plan Frequency and Duration Frequency of Treatment 2x/Week Duration of Treatment 6 weeks Plan of Care Start Date 12/03/18 Plan of Care End Date 01/14/19 Therapeutic Interventions Therapeutic Interventions Home Exercise Program Joint Mobilizations Manual Therapy Patient/Caregiver Education Self-Care/Home Management Soft Tissue Mobilization Taping Therapeutic Activities Therapeutic Exercises Modalities Cold Pack/Ice Massage Electric Stimulation Hot Packs Ultrasound Next Visit Focus/Plan Next Note Type Re-Evaluation Next Visit Plan Follow-up appointment in 3-4 weeks. Will reassess progress with self-care, HEP. Determine need for further PT at that time.
--- NOTE | 2019-01-21 12:06 | PT-OP ANOTE ---
DNS for PT today.
--- NOTE | 2019-02-18 11:40 | PT.OTN ---
Current Diagnoses Pain in right shoulder (02/18/19) Pain in left shoulder (02/18/19) Physical Therapy Treatment Note PT-OP-A Visit Information Start: 09/29/18 16:27 Freq: Status: Active Protocol: Document 02/18/19 11:15 DCW (Rec: 02/18/19 11:40 DCW [id number]) Out-Patient Physical Therapy Visit Information Visit Information Visit Type Discharge Summary Visit Start Time 11:15 Visit Stop Time 11:35 Total Visit Minutes 20 Visit Number 18 Number of TOLL BOOTH OPERATOR Visits 0 Evaluation Information Evaluation Date 09/29/18 PT-OP-B Current Condition Start: 09/29/18 16:27 Freq: Status: Active Protocol: Document 09/29/18 10:30 DLM (Rec: 09/30/18 08:40 DLM [id number]) Current Condition History of Current Condition Onset Date gradual Current Complaints Bilateral shoulder pain with right worse than left History of Current Condition He reports sudden onset right shoulder pain and about two weeks later left shoulder pain . He has no known injury. The pain interferes with functional use of his arms. He has pain that affects his sleep. Prior Treatments and Tests x-rays showed mild arthritis Future Testing and Treatments Planned none reported Treatment Goals Patient/Caregiver Goals resolve his shoulder pain Prior Functional Status Baseline Function- ADL's Independent Baseline Function- Mobility Independent Baseline Function- Gait Independent without device, community distances Baseline Function- Work/School getting his bachelor degree online, desktop computer Baseline Function- Recreation/Hobbies Stretches for 45 min, 1 hr cardio workout, walking for 1. 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 Current Functional Impairments (Reported) Functional Limitations- ADL's Independent with pain in bilateral shoulders Functional Limitations- Mobility/Gait no changes reported Functional Limitations- Recreation/ pain with fencing especially Hobbies with reaching out motion Personal Factors Other Personal Factors That May Effect lost a lot of weight and Therapy/Recovery exercises now to keep the weight off PT-OP-C Subjective Start: 09/29/18 16:27 Freq: Status: Active Protocol: Document 02/18/19 11:15 DCW (Rec: 02/18/19 11:40 DCW [id number]) OP-PT Subjective Patient Comments Patient Comments Pt feeling like everything is going well, no real complaints , feels discharge is appropriate at this time. Pt notes that he was really just curious if he could begin to return to his prior exercise routine, including training for fencing. PT-OP-F Manual Assessment Start: 09/29/18 16:27 Freq: Status: Active Protocol: Document 09/29/18 10:30 DLM (Rec: 09/30/18 08:56 DLM [id number]) Manual Assessments Soft Tissue Assessment Soft Tissue Mobility Assessment sub-occipital tightness PT-OP-H Neuro Start: 09/29/18 16:27 Freq: Status: Active Protocol: Document 09/29/18 10:30 DLM (Rec: 09/30/18 08:56 DLM [id number]) Sensation Evaluation Gross Sensation Gross Sensation WNL PT-OP-J Posture/Palpation/Skin Start: 09/29/18 16:27 Freq: Status: Active Protocol: Document 02/18/19 11:15 DCW (Rec: 02/18/19 11:28 DCW [id number]) Palpation Assessment Location Three Palpation Location L shoulder Palpation Details No c/o pain One Palpation Location R shoulder Palpation Details No c/o pain PT-OP-K Range of Motion Start: 09/29/18 16:27 Freq: Status: Active Protocol: Document 12/03/18 11:15 DCW (Rec: 12/03/18 11:45 DCW [id number]) Shoulder Goniometric Range of Motion Shoulder Right Active Shoulder ROM WFL Yes Testing Position Sitting Left Active Shoulder ROM WFL Yes Testing Position Sitting Shoulder ROM Limitations Comments negative painful arc PT-OP-L Special Tests Start: 09/29/18 16:27 Freq: Status: Active Protocol: Document 02/18/19 11:15 DCW (Rec: 02/18/19 11:28 DCW [id number]) Special Tests Shoulder Special Tests Drop Arm Rotator Cuff Test Results negative bilaterally Elevation Impingement Test Results negative Apprehension Test Test Results negative bilaterally PT-OP-M Strength Start: 09/29/18 16:27 Freq: Status: Active Protocol: Document 02/18/19 11:15 DCW (Rec: 02/18/19 11:28 DCW [id number]) Shoulder Strength Shoulder Manual Muscle Testing Right Flexion 5 Normal Extension 5 Normal Abduction (C5) 5 Normal Adduction 5 Normal External Rotation 5 Normal Internal Rotation 5 Normal Left Flexion 5 Normal Extension 5 Normal Abduction (C5) 5 Normal Adduction 5 Normal External Rotation 5 Normal Internal Rotation 5 Normal Elbow/Forearm Strength Elbow and Forearm Manual Muscle Testing Right Flexion (C6) 5 Normal Extension (C7) 5 Normal Left Flexion (C6) 5 Normal Extension (C7) 5 Normal PT-OP-Q Treatments Start: 09/29/18 16:27 Freq: Status: Active Protocol: Document 02/18/19 11:15 DCW (Rec: 02/18/19 11:40 DCW [id number]) Manual Therapy Treatment Other Other Manual Treatments ROM, strength, special testing PT-OP-R Modalities Start: 09/29/18 16:27 Freq: Status: Active Protocol: Document 12/22/18 08:13 SAK (Rec: 12/22/18 08:19 SAK [id number]) Electric Stimulation Electric Stimulation Interferential Current (IFC) Body Location right shoulder Duration (Minutes) 10 Target/Sweep Sweep Combined With Heat/Cold Cold Pack Ultrasound Therapy Treatment Right Shoulder Treatment Duration (minutes) 8 Patient Position Sitting Coupling Medium Ultrasound Gel Applicator Size (cm2) 10 Mode Setting Pulsed Intensity Setting (w/cm2) 1.2 Comments posterior shoulder; proximal lateral scapular border PT-OP-T Assessment and Plan Start: 09/29/18 16:27 Freq: Status: Active Protocol: Document 02/18/19 11:15 DCW (Rec: 02/18/19 11:40 DCW [id number]) Physical Therapy Assessment Goals Four Impairment Impaired functional use of shoulders, Quick Dash=50 Short Term Goal (STG) Quick Dash score improvement to <25 STG Duration 4 weeks Shelter Goal (LTG) Quick Dash score improvement to <10 LTG Duration 8 weeks Three Impairment Positive impingement signs right shoulder Short Term Goal (STG) Resolve impingement signs right shoulder STG Duration Met Rn Appeals Goal (LTG) Demonstrate erect posture and improved postural awareness LTG Duration Met Two Impairment Impaired Strength Short Term Goal (STG) Increase his shoulder strength to at least 4+/5 without pain STG Duration Met Rn Appeals Goal (LTG) Increase his bilateral shoulder strength to 5/5 without pain LTG Duration Met One Impairment Pain of 6/10 Short Term Goal (STG) Decrease his shoulder pain to less than or equal to 3/10 STG Duration Met Rn Appeals Goal (LTG) Decrease shoulder pain to 0/10 with normal use LTG Duration Met Progress Towards Goals Progress Towards Goals Goals Met Assessment Summary Assessment Pt appropriate for d/c at this time. Pt agrees that he is not quite 100%, but I know how to put in the work to get myself to the finish. Pt met nearly all goals, is comfortable with his HEP, and will be discharged from skilled PT at this time Physical Therapy Plan Frequency and Duration Frequency of Treatment 1x/Week Duration of Treatment 1 day Plan of Care Start Date 02/18/19 Plan of Care End Date 02/19/19 Therapeutic Interventions Therapeutic Interventions Home Exercise Program,Joint Mobilizations,Manual Therapy, Patient/Caregiver Education, Self-Care/Home Management,Soft Tissue Mobilization,Taping, Therapeutic Activities, Therapeutic Exercises Modalities Cold Pack/Ice Massage,Electric Stimulation,Hot Packs, Ultrasound Discharge Physical Therapy Discharge Reasons Goals Met Next Visit Focus/Plan Next Note Type Discharge Summary
--- NOTE | 2019-02-18 11:41 | PT.OPPOC ---
Current Diagnoses Pain in right shoulder (02/18/19) Pain in left shoulder (02/18/19) Visit Care Team Role Provider Type Jessica Tuttle PA-C Attending Provider Advanced Behavioral Modification Assistant Family Provider Primary Care Provider Specialty: Medical Address: [address] [place] [address], [address], [address] Email: [email or web address] Plan Of Care PT-OP-T Assessment and Plan Start: 09/29/18 16:27 Freq: Status: Active Protocol: Document 02/18/19 11:15 DCW (Rec: 02/18/19 11:40 DCW [id number]) Physical Therapy Assessment Goals Four Impairment Impaired functional use of shoulders, Quick Dash=50 Short Term Goal (STG) Quick Dash score improvement to <25 STG Duration 4 weeks Environmental Programs Specialist Goal (LTG) Quick Dash score improvement to <10 LTG Duration 8 weeks Three Impairment Positive impingement signs right shoulder Short Term Goal (STG) Resolve impingement signs right shoulder STG Duration Met [facility] Goal (LTG) Demonstrate erect posture and improved postural awareness LTG Duration Met Two Impairment Impaired Strength Short Term Goal (STG) Increase his shoulder strength to at least 4+/5 without pain STG Duration Met Chcf Goal (LTG) Increase his bilateral shoulder strength to 5/5 without pain LTG Duration Met One Impairment Pain of 6/10 Short Term Goal (STG) Decrease his shoulder pain to less than or equal to 3/10 STG Duration Met Environmental Programs Specialist Goal (LTG) Decrease shoulder pain to 0/10 with normal use LTG Duration Met Progress Towards Goals Progress Towards Goals Goals Met Assessment Summary Assessment Pt appropriate for d/c at this time. Pt agrees that he is not quite 100%, but I know how to put in the work to get myself to the finish. Pt met nearly all goals, is comfortable with his HEP, and will be discharged from skilled PT at this time Physical Therapy Plan Frequency and Duration Frequency of Treatment 1x/Week Duration of Treatment 1 day Plan of Care Start Date 02/18/19 Plan of Care End Date 02/19/19 Therapeutic Interventions Therapeutic Interventions Home Exercise Program,Joint Mobilizations,Manual Therapy, Patient/Caregiver Education, Self-Care/Home Management,Soft Tissue Mobilization,Taping, Therapeutic Activities, Therapeutic Exercises Modalities Cold Pack/Ice Massage,Electric Stimulation,Hot Packs, Ultrasound Discharge Physical Therapy Discharge Reasons Goals Met Next Visit Focus/Plan Next Note Type Discharge Summary Plan of Care Dates Plan of Care Start Date 02/18/19 Plan of Care End Date 02/19/19
== END 2019-03-03 16:40 | disposition home or self-care (01) ==
LOC: PHYS 11:15
PROVIDERS: Family Provider Physician Assistant; PCP Physician Assistant; Visit Provider Physician Assistant
DX: M25.511 Pain in right shoulder (principal); M25.512 Pain in left shoulder
CPT/HCPCS: 97010; 97014; 97035; 97110; 97140; 97162; G0283

== ENCOUNTER → 2019-03-29 18:02 | Outpatient (CLI) | payer OTHER, MEDICAID, SELFPAY ==
--- NOTE | 2019-03-29 18:05 | DI.RAD.S_ITS ---
PROCEDURE: XR FOOT LT MIN 3V INDICATIONS: 5th metatarsal pain after droping object on foot TECHNIQUE: 3 views of the foot were acquired. COMPARISON: None. FINDINGS: Bones: No gross acute left foot fractures or dislocations. No suspicious bony lesions. Soft tissues: No tibiotalar joint effusion. Achilles tendon appears normal. IMPRESSION: No gross acute left foot fracture or dislocation is seen. Dictated by: Pascual Roa M.D. on 03/29/2019 at 18:12 Approved by: Pascual Roa M.D. on 03/29/2019 at 18:13
== END ==
PROVIDERS: Family Provider Physician Assistant; PCP Physician Assistant; Visit Provider Nurse Practitioner
DX: M79.672 Pain in left foot (principal)
CPT/HCPCS: 73630

== ENCOUNTER → 2022-03-12 07:02 | Outpatient (CLI) | payer OTHER, MEDICAID, SELFPAY ==
[2022-03-12 08:52] LABS: Add Manual Diff / Slide Review NO; Basophils Absolute Auto 0 /uL (0-100); Basophils Percent Auto 0.6 % (0-2); Eosinophils Absolute Auto 300 /uL (0-450); Eosinophils Percent Auto 4.8 % (2-4); Hematocrit 46.7 % (41-53); Hemoglobin 16.3 g/dL (13.5-17.5); Lymphocytes Absolute Auto 1900 /uL (1100-4500); Lymphocytes Percent Auto 28.9 % (25-40); Mean Corpuscular HGB Conc 34.8 % (30-36); Mean Corpuscular Hemoglobin 29.2 PG (26-34); Mean Corpuscular Volume 83.9 fL (80-100); Monocytes Absolute Auto 700 /uL (0-900); Monocytes Percent Auto 10.2 % (3-14); Neutrophils Absolute Auto 3700 /uL (1500-7000); Neutrophils Percent Auto 55.5 % (50-75); Platelet Count 174 X10^3/uL (150-400); Red Blood Cell Count 5.57 X10^6/uL (4.5-5.9); Red Cell Distribution Width 14.2 % (11.6-14.8); White Blood Cell Count 6.7 X10^3/uL (4.5-11.0)
[2022-03-12 08:58] LABS: Hemoglobin A1C% w Est Avg Glu 6.4 % (4.0-6.0)
[2022-03-12 09:27] LABS: Alanine Aminotransferase 76 IU/L (<50); Albumin 4.1 g/dL (3.5-5.0); Albumin Globulin Ratio 1.3 (1.0-2.8); Alkaline Phosphatase 96 U/L (38-126); Aspartate Aminotransferase 43 IU/L (17-59); BUN Creatinine Ratio 19.8 (6-22); Bilirubin Total 0.7 mg/dL (0.2-1.3); Blood Urea Nitrogen 18 mg/dL (9-20); Calcium 8.5 mg/dL (8.4-10.2); Carbon Dioxide 30 mmol/L (22-32); Chloride 100 mmol/L (98-107); Cholesterol 202 mg/dL (140-199); Estimated Glomerular Filt Rate > 60 mL/min (>60); Globulin 3.2 g/dL (1.7-4.1); Glucose 110 mg/dL (70-100); HDL Cholesterol 49 mg/dL (40-60); HEMOLYSIS < 15 (0-50); LDL Cholesterol Calculated 128 mg/dL (<100); Sodium 137 mmol/L (137-145); Total Protein 7.3 g/dL (6.3-8.2); Triglycerides 123 mg/dL (35-150)
== END ==
PROVIDERS: Family Provider Physician Assistant; PCP Family Medicine; Referring Provider Family Medicine; Visit Provider Family Medicine
DX: I10 Essential (primary) hypertension (principal)
CPT/HCPCS: 36415; 80053; 80061; 83036; 85025

== ENCOUNTER 2022-07-29 07:30 | Outpatient (RCR) | payer OTHER, MEDICAID, SELFPAY ==
--- NOTE | 2022-07-11 08:28 | PT.OIE ---
Current Diagnoses Adjustment disorder with depressed mood (07/11/22) Pain in left shoulder (07/11/22) Past Medical History (Last Updated 06/04/22 @ 08:17 by Lauro Edmond DO) Back pain Benign essential HTN Carpal tunnel syndrome on both sides (~2007) Chicken pox (~1971) Grieving Hyperlipidemia IFG (impaired fasting glucose) Morbid obesity Seizure Past Surgical History (Last Reviewed 03/29/19 @ 17:55 by ADAM May) History of carpal tunnel release of both wrists Visit Care Team Role Provider Type Lauro Edmond DO Attending Provider Physician Family Provider Primary Care Provider Referring Provider Specialty: Family Practice Address: [address] [place] [address], [address], [facility] Email: [email or web address] Physical Therapy Initial Evaluation PT-OP-A Visit Information Start: 07/11/22 08:03 Freq: Status: Active Protocol: Document 07/11/22 08:12 SAK (Rec: 07/11/22 09:03 SAK [id number]) Out-Patient Physical Therapy Visit Information Visit Information Visit Type Initial Evaluation Visit Start Time 08:15 Visit Stop Time 08:59 Total Visit Minutes 44 Visit Number 1 Evaluation Information Evaluation Date 07/11/22 Precautions Precautions Mother recently PT-OP-B Current Condition Start: 07/11/22 08:03 Freq: Status: Active Protocol: Document 07/11/22 08:12 SAK (Rec: 07/11/22 09:03 SAK [id number]) Current Condition History of Current Condition Onset Date January 2022 Current Complaints left shoulder pain History of Current Condition right handed. Started to notice painful sleeping on left side and noticed having difficulty reaching behind back, out to side. Has stopped sleeping on side. Started doing some prior HEP: laying on foam roller, arm against wall turning away stretch, theraband exercises. Denies N/T. Is unable to do fencing which is his favorite recreational activity due to pain Prior Treatments and Tests prior x-ray showed mild OA AC and left shoulder Treatment Goals Patient/Caregiver Goals Decrease pain, improve activity tolerance with left UE to allow you to return to all usual activities with minimal to no pain Prior Functional Status Baseline Function- ADL's Independent Baseline Function- Mobility Independent Baseline Function- Work/School no limitations Baseline Function- Recreation/Hobbies fencing Current Functional Impairments (Reported) Functional Limitations- ADL's unable to reach behind back or out to side with out pain Functional Limitations- Work/School unable to reach behind his back, out to side without paion Functional Limitations- Recreation/ unable to fence, do exercises Hobbies as usual Personal Factors Other Personal Factors That May Effect of mother Therapy/Recovery PT-OP-C Subjective Start: 07/11/22 08:03 Freq: Status: Active Protocol: Document 07/11/22 08:12 [facility] (Rec: 07/11/22 09:03 [facility] [id number]) Patient Questionnaires Dizziness Handicap Inventory DHI Functional Impairment 20 to 39% Impaired (Score 20- 39) OP-PT Pain Assessment Pain Assessment Grid Paper Pain Assessment Grid Completed Yes Location Left Shoulder Intensity 8 PT-OP-J Posture/Palpation/Skin Start: 07/11/22 08:03 Freq: Status: Active Protocol: Document 07/11/22 08:12 [facility] (Rec: 07/11/22 09:03 [facility] [id number]) Posture Evaluation Position Sitting Head/C-Spine Posture Forward Head T-Spine Posture Increased Kyphosis Shoulder Posture (L) Rounded,(R) Rounded Scapula Posture (L) Protracted,(R) Protracted Arm Posture (L) Internally Rotated,(R) Internally Rotated Palpation Assessment Location left UT Palpation Findings Soft Tissue Tightness,Muscle Guarding,Tenderness,Trigger Point thoracic paraspinals Palpation Location left Palpation Findings Soft Tissue Tightness,Muscle Guarding left RC Palpation Findings Tenderness left AC Palpation Findings Tenderness left GH Palpation Findings Tenderness PT-OP-K Range of Motion Start: 07/11/22 08:03 Freq: Status: Active Protocol: Document 07/11/22 08:12 [facility] (Rec: 07/11/22 09:03 [facility] [id number]) Cervical Spine Range of Motion Cervical Spine Active Testing Position Sitting Comments WNL Shoulder Goniometric Range of Motion Shoulder Left Active Flexion 155 Extension 25 Abduction 160 External Rotation at 45 degrees 60 Abduction Internal Rotation Behind Back (text) lateral hip Right Shoulder ROM WFL Yes Testing Position Sitting Shoulder ROM Limitations Shoulder ROM Limitations Pain Elbow/Forearm Range of Motion Elbow/Forearm guerda Elbow/Forearm ROM WFL Yes PT-OP-Q Treatments Start: 07/11/22 08:03 Freq: Status: Active Protocol: Document 07/11/22 08:12 [facility] (Rec: 07/14/22 08:27 [facility] [id number]) Self-Care/Home Management Treatment Education Patient Education Home Exercise Program,Pain Management,Posture Other Education issued curt NAVA PT-OP-T Assessment and Plan Start: 07/11/22 08:03 Freq: Status: Active Protocol: Document 07/11/22 08:12 [facility] (Rec: 07/11/22 09:03 [facility] [id number]) Physical Therapy Assessment Evaluation Complexity Number of Personal Factors/Comorbidities 1-2 Number of Body Systems Impaired 3 Clinical Presentation at Evaluation Evolving Impairments Impairments Activity Tolerance,Pain, Posture,ROM,Strength Goals Four Impairment posture Impairment forward head, rounded shoulders, protracted scapula, and IR shouders contributing to shoulder dysfunction Short Term Goal (STG) Patient to be instructed in postural contribution to shoulder dysfunction and in postural correction ex and activities STG Duration 08/11/22 Halfway Goal (LTG) Patient will demonstrate improved posture at rest and with function for improved shoulder function with ADL's and recreational activities. LTG Duration 09/10/22 Three Impairment strength Impairment weakness posterior chain musculature Short Term Goal (STG) Patient will be instructed in HEP for purposes of strengthening posterior chain STG Duration 08/11/22 Accounts Receivable Coordinator Goal (LTG) Patient will be independnet and compliant with HEP and demonstrate 5/5 muscle strength left UE and posterior chain Two Impairment ROM Impairment unable reach overhead, out to side, and behind his back Accounts Receivable Coordinator Goal (LTG) Patient ROM will improve sufficient to reach overhead, out to the side, and behind his back to be able to return to performing daily tasks with his left UE LTG Duration 09/10/22 One Impairment activity tolerance Impairment patient unable to sleep through the night, reach behind his back for ADL's, and unable to fence Halfway Goal (LTG) Patient will improve his left shoulder pain and function sufficient to allow him to sleep through the night, reach behind his back to perform ADL's, and will be able to return to fencing withough pain LTG Duration 09/10/22 Assessment Summary Assessment Patient presents to PT with funciton-limiting left shoulder pain of gradual onset , no known injury which makes it difficult for patient to reach out to side, behind his back, overhead, and interrupts his sleep. Signs and symptoms are consistent with impingement and feel postural impairment and posterior chain weakness are contributory. Prior x-ray showed mild arthritis but no recent x-ray or othre imaging. Feel he would benefit from PT to decrease his pain and impingement symtpms, improve his posture and posterior chain strength and help him return to his prior level of function with full active use of his left UE and the ability to sleep through the night. POC was discussed and patient was in agreement. Physical Therapy Plan Frequency and Duration Frequency of Treatment 2x/Week Duration of treatment (weeks) 8 Plan of Care Start Date 07/11/22 Plan of Care End Date 09/10/22 Therapeutic Interventions Therapeutic Interventions Home Exercise Program,Manual Therapy,Patient/Caregiver Education,Self-Care/Home Management,Soft Tissue Mobilization,Taping, Therapeutic Activities, Therapeutic Exercises Modalities Cold Pack/Ice Massage,Electric Stimulation,Hot Packs, Infrared Therapy,Iontophoresis ,Ultrasound Next Visit Focus/Plan Next Note Type Treatment Note Next Visit Plan Review HEP, progress ther ex with emphasis on scapular mechanics, postural correction , and exercise in pain-free rom. Manual therapy for scapular mobility. Modalities PRN as needed.
--- NOTE | 2022-07-11 08:28 | PT.OPPOC ---
Physical, Occupational & Speech Therapy At [facility] Current Diagnoses Adjustment disorder with depressed mood (07/11/22) Pain in left shoulder (07/11/22) Visit Care Team Role Provider Type Lauro Edmond DO Attending Provider Physician Family Provider Primary Care Provider Referring Provider Specialty: Family Practice Address: [address] [place] [address], [facility] Email: [email or web address] Plan Of Care PT-OP-T Assessment and Plan Start: 07/11/22 08:03 Freq: Status: Active Protocol: Document 07/11/22 08:12 SAK (Rec: 07/11/22 09:03 SAK [id number]) Physical Therapy Assessment Evaluation Complexity Number of Personal Factors/Comorbidities 1-2 Number of Body Systems Impaired 3 Clinical Presentation at Evaluation Evolving Impairments Impairments Activity Tolerance,Pain, Posture,ROM,Strength Goals Four Impairment posture Impairment forward head, rounded shoulders, protracted scapula, and IR shouders contributing to shoulder dysfunction Short Term Goal (STG) Patient to be instructed in postural contribution to shoulder dysfunction and in postural correction ex and activities STG Duration 08/11/22 Outdoor Fitness Trainer Goal (LTG) Patient will demonstrate improved posture at rest and with function for improved shoulder function with ADL's and recreational activities. LTG Duration 09/10/22 Three Impairment strength Impairment weakness posterior chain musculature Short Term Goal (STG) Patient will be instructed in HEP for purposes of strengthening posterior chain STG Duration 08/11/22 Long-Term Goal (LTG) Patient will be independnet and compliant with HEP and demonstrate 5/5 muscle strength left UE and posterior chain Two Impairment ROM Impairment unable reach overhead, out to side, and behind his back Outdoor Fitness Trainer Goal (LTG) Patient ROM will improve sufficient to reach overhead, out to the side, and behind his back to be able to return to performing daily tasks with his left UE LTG Duration 09/10/22 One Impairment activity tolerance Impairment patient unable to sleep through the night, reach behind his back for ADL's, and unable to fence Outdoor Fitness Trainer Goal (LTG) Patient will improve his left shoulder pain and function sufficient to allow him to sleep through the night, reach behind his back to perform ADL's, and will be able to return to fencing withough pain LTG Duration 09/10/22 Assessment Summary Assessment Patient presents to PT with funciton-limiting left shoulder pain of gradual onset , no known injury which makes it difficult for patient to reach out to side, behind his back, overhead, and interrupts his sleep. Signs and symptoms are consistent with impingement and feel postural impairment and posterior chain weakness are contributory. Prior x-ray showed mild arthritis but no recent x-ray or othre imaging. Feel he would benefit from PT to decrease his pain and impingement symtpms, improve his posture and posterior chain strength and help him return to his prior level of function with full active use of his left UE and the ability to sleep through the night. POC was discussed and patient was in agreement. Physical Therapy Plan Frequency and Duration Frequency of Treatment 2x/Week Duration of treatment (weeks) 8 Plan of Care Start Date 07/11/22 Plan of Care End Date 09/10/22 Therapeutic Interventions Therapeutic Interventions Home Exercise Program,Manual Therapy,Patient/Caregiver Education,Self-Care/Home Management,Soft Tissue Mobilization,Taping, Therapeutic Activities, Therapeutic Exercises Modalities Cold Pack/Ice Massage,Electric Stimulation,Hot Packs, Infrared Therapy,Iontophoresis ,Ultrasound Next Visit Focus/Plan Next Note Type Treatment Note Next Visit Plan Review HEP, progress ther ex with emphasis on scapular mechanics, postural correction , and exercise in pain-free rom. Manual therapy for scapular mobility. Modalities PRN as needed. Plan of Care Dates Plan of Care Start Date 07/11/22 Plan of Care End Date 09/10/22 Electronically Signed by: Eli Quintanilla, PT 07/14/22 0828 If you are in agreement with this Plan of Care, please return a signed and dated copy. I have reviewed this Plan of Care and certify that the skilled therapy services above are required to meet the patient?s needs. Physician Signature Date Printed Name and Credentials Clinical Instructor Signature Printed Name and Credentials
--- NOTE | 2022-07-17 09:00 | PT.OTN ---
Current Diagnoses Adjustment disorder with depressed mood (07/17/22) Pain in left shoulder (07/17/22) Physical Therapy Treatment Note PT-OP-A Visit Information Start: 07/11/22 08:03 Freq: Status: Active Protocol: Document 07/17/22 08:19 SP (Rec: 07/17/22 09:04 SP [id number]) Out-Patient Physical Therapy Visit Information Visit Information Visit Type Treatment Note Visit Start Time 08:19 Visit Stop Time 09:00 Total Visit Minutes 41 Visit Number 3 Number of EQUIPMENT INSTALLATION PROFESSIONAL Visits 1 Evaluation Information Evaluation Date 07/11/22 Precautions Precautions Mother recently PT-OP-B Current Condition Start: 07/11/22 08:03 Freq: Status: Active Protocol: Document 07/15/22 09:02 SAK (Rec: 07/15/22 09:45 SAK [id number]) Current Condition History of Current Condition Onset Date January 2022 Current Complaints left shoulder pain History of Current Condition right handed. Started to notice painful sleeping on left side and noticed having difficulty reaching behind back, out to side. Has stopped sleeping on side. Started doing some prior HEP: laying on foam roller, arm against wall turning away stretch, theraband exercises. Denies N/T. 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 PT-OP-J Posture/Palpation/Skin Start: 07/11/22 08:03 Freq: Status: Active Protocol: Document 07/11/22 08:12 SAK (Rec: 07/11/22 09:03 SAK [id number]) Posture Evaluation Position Sitting Head/C-Spine Posture Forward Head T-Spine Posture Increased Kyphosis Shoulder Posture (L) Rounded,(R) Rounded Scapula Posture (L) Protracted,(R) Protracted Arm Posture (L) Internally Rotated,(R) Internally Rotated Palpation Assessment Location left UT Palpation Findings Soft Tissue Tightness,Muscle Guarding,Tenderness,Trigger Point thoracic paraspinals Palpation Location left Palpation Findings Soft Tissue Tightness,Muscle Guarding left RC Palpation Findings Tenderness left AC Palpation Findings Tenderness left GH Palpation Findings Tenderness PT-OP-K Range of Motion Start: 07/11/22 08:03 Freq: Status: Active Protocol: Document 07/11/22 08:12 SAK (Rec: 07/11/22 09:03 SAK [id number]) Cervical Spine Range of Motion Cervical Spine Active Testing Position Sitting Comments WNL Shoulder Goniometric Range of Motion Shoulder Left Active Flexion 155 Extension 25 Abduction 160 External Rotation at 45 degrees 60 Abduction Internal Rotation Behind Back (text) lateral hip Right Shoulder ROM WFL Yes Testing Position Sitting Shoulder ROM Limitations Shoulder ROM Limitations Pain Elbow/Forearm Range of Motion Elbow/Forearm guerda Elbow/Forearm ROM WFL Yes PT-OP-Q Treatments Start: 07/11/22 08:03 Freq: Status: Active Protocol: Document 07/17/22 08:19 SP (Rec: 07/17/22 09:04 SP [id number]) Therapeutic Exercises Prone Exercises T Prone Exercise Name Ts, Is, Ys Side left Reps/Minutes 5 reps x2SH- little muscle shakiness but good painfree range Comments good cor scapular activation Sidelying Exercises open book Sidelying Exercise Name HEP reviewed Side left Reps/Minutes 5x Comments cued scapular glide then TS rotation, good head turn with arm Standing Exercises theraband Standing Exercise Name row, ext, ER Equipment Used L2 TB>#3 Reps/Minutes x10 reps each Comments good scap set form and painfree almost full range hor add Standing Exercise Name behind back-HEP reviewed Side left Equipment Used towel Reps/Minutes 5x5 Comments good feedback stretch anterior L shld and UT UT stretch Standing Exercise Name UT and LS stretch- has been person routine Reps/Minutes [id number] sec Comments good feedback stretch Other Exercises 1/2 kneel eccentric FF, ABD Other Exercise Name added to HEP: Side left Equipment Used R knee up/ L knee down, contact table forstability Reps/Minutes x5 reps Comments cued slow eccentric painfree range Self-Care/Home Management Treatment Education Patient Education Home Exercise Program,Pain Management,Posture Other Education Added 1/2 kneel FF, ABD stretching. Time spent use pillow propping side and supine for scapular/ arm support needed and alignment- good feedback response. PT-OP-T Assessment and Plan Start: 07/11/22 08:03 Freq: Status: Active Protocol: Document 07/17/22 08:19 SP (Rec: 07/17/22 09:04 SP [id number]) Physical Therapy Assessment Goals Four Impairment posture Impairment forward head, rounded shoulders, protracted scapula, and IR shouders contributing to shoulder dysfunction Short Term Goal (STG) Patient to be instructed in postural contribution to shoulder dysfunction and in postural correction ex and activities STG Duration 08/11/22 Material Mixer Goal (LTG) Patient will demonstrate improved posture at rest and with function for improved shoulder function with ADL's and recreational activities. LTG Duration 09/10/22 Three Impairment strength Impairment weakness posterior chain musculature Short Term Goal (STG) Patient will be instructed in HEP for purposes of strengthening posterior chain STG Duration 08/11/22 Senior Care Goal (LTG) Patient will be independnet and compliant with HEP and demonstrate 5/5 muscle strength left UE and posterior chain Two Impairment ROM Impairment unable reach overhead, out to side, and behind his back Senior Care Goal (LTG) Patient ROM will improve sufficient to reach overhead, out to the side, and behind his back to be able to return to performing daily tasks with his left UE LTG Duration 09/10/22 One Impairment activity tolerance Impairment patient unable to sleep through the night, reach behind his back for ADL's, and unable to fence Material Mixer Goal (LTG) Patient will improve his left shoulder pain and function sufficient to allow him to sleep through the night, reach behind his back to perform ADL's, and will be able to return to fencing withough pain LTG Duration 09/10/22 Assessment Summary Assessment Pt good feedback stretch and muscle tiring quivering at times throughout tx, painfree. Cues as needed for form set up and tolerant painfree range . Good feedback and understanding use pillows for alignment support trunk, shld, neck. Physical Therapy Plan Frequency and Duration Frequency of Treatment 2x/Week Duration of treatment (weeks) 8 Plan of Care Start Date 07/11/22 Plan of Care End Date 09/10/22 Therapeutic Interventions Therapeutic Interventions Home Exercise Program,Manual Therapy,Patient/Caregiver Education,Self-Care/Home Management,Soft Tissue Mobilization,Taping, Therapeutic Activities, Therapeutic Exercises Modalities Cold Pack/Ice Massage,Electric Stimulation,Hot Packs, Infrared Therapy,Iontophoresis ,Ultrasound Next Visit Focus/Plan Next Note Type Treatment Note Next Visit Plan Added eccentric FF, ABD 1/2 kneeling to HEP. POC: Progress ther ex with emphasis on scapular mechanics , postural correction, and exercise in pain-free rom. Manual therapy for scapular mobility. Modalities PRN as needed.
--- NOTE | 2022-07-24 09:02 | PT.OTN ---
Current Diagnoses Adjustment disorder with depressed mood (07/24/22) Pain in left shoulder (07/24/22) Physical Therapy Treatment Note PT-OP-A Visit Information Start: 07/11/22 08:03 Freq: Status: Active Protocol: Document 07/24/22 08:11 SAK (Rec: 07/24/22 09:01 [facility] [id number]) Out-Patient Physical Therapy Visit Information Visit Information Visit Type Treatment Note Visit Start Time 08:15 Visit Stop Time 09:00 Total Visit Minutes 45 Visit Number 4 Number of FOOD SERVICE COORDINATOR Visits 0 Evaluation Information Evaluation Date 07/11/22 PT-OP-B Current Condition Start: 07/11/22 08:03 Freq: Status: Active Protocol: Document 07/15/22 09:02 SAK (Rec: 07/15/22 09:45 [facility] [id number]) Current Condition History of Current Condition Onset Date January 2022 Current Complaints left shoulder pain History of Current Condition right handed. Started to notice painful sleeping on left side and noticed having difficulty reaching behind back, out to side. Has stopped sleeping on side. Started doing some prior HEP: laying on foam roller, arm against wall turning away stretch, theraband exercises. Denies N/T. 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 No difficulty with HEP. PT-OP-J Posture/Palpation/Skin Start: 07/11/22 08:03 Freq: Status: Active Protocol: Document 07/11/22 08:12 SAK (Rec: 07/11/22 09:03 [facility] [id number]) Posture Evaluation Position Sitting Head/C-Spine Posture Forward Head T-Spine Posture Increased Kyphosis Shoulder Posture (L) Rounded,(R) Rounded Scapula Posture (L) Protracted,(R) Protracted Arm Posture (L) Internally Rotated,(R) Internally Rotated Palpation Assessment Location left UT Palpation Findings Soft Tissue Tightness,Muscle Guarding,Tenderness,Trigger Point thoracic paraspinals Palpation Location left Palpation Findings Soft Tissue Tightness,Muscle Guarding left RC Palpation Findings Tenderness left AC Palpation Findings Tenderness left GH Palpation Findings Tenderness PT-OP-K Range of Motion Start: 07/11/22 08:03 Freq: Status: Active Protocol: Document 07/11/22 08:12 [facility] (Rec: 07/11/22 09:03 [facility] [id number]) Cervical Spine Range of Motion Cervical Spine Active Testing Position Sitting Comments WNL Shoulder Goniometric Range of Motion Shoulder Left Active Flexion 155 Extension 25 Abduction 160 External Rotation at 45 degrees 60 Abduction Internal Rotation Behind Back (text) lateral hip Right Shoulder ROM WFL Yes Testing Position Sitting Shoulder ROM Limitations Shoulder ROM Limitations Pain Elbow/Forearm Range of Motion Elbow/Forearm guerda Elbow/Forearm ROM WFL Yes PT-OP-Q Treatments Start: 07/11/22 08:03 Freq: Status: Active Protocol: Document 07/24/22 08:11 [facility] (Rec: 07/24/22 09:01 [facility] [id number]) Therapeutic Exercises Prone Exercises T Prone Exercise Name Ts, Is, Ys Side left Reps/Minutes 5 reps x2SH- little muscle shakiness but good painfree range Comments good cor scapular activation Sitting Exercises pulleys Sitting Exercise Name flexion and scaption Reps/Minutes 10x Standing Exercises fencing sim Standing Exercise Name isotonic, eccentric Side left Resistance L2 Reps/Minutes 10x theraband Standing Exercise Name HEP hor add Standing Exercise Name behind back-HEP reviewed Side left Equipment Used towel Reps/Minutes 5x5 Comments good feedback stretch anterior L shld and UT Other Exercises 1/2 kneel eccentric FF, ABD Side left Resistance L3 TB Equipment Used R knee up/ L knee down, Reps/Minutes x10 reps Comments cued slow eccentric painfree range Manual Therapy Treatment Soft Tissue Mobilization pec demetrius,min Mobilization Type Sustained Pressure Intensity/Depth Moderate Comments instruction in use of tennis ball for self massage Joint Mobilizations scapula Direction med,lat,sup/inf Grade III Body Position Sidelying GH Direction post,inf Grade III Body Position Supine Self-Care/Home Management Treatment Education Patient Education Home Exercise Program,Pain Management,Posture Other Education instructed in self-massage pecs, periscapular mm with tennis ball with patient demonstrating good understaning PT-OP-T Assessment and Plan Start: 07/11/22 08:03 Freq: Status: Active Protocol: Document 07/24/22 08:11 [facility] (Rec: 07/24/22 09:01 [facility] [id number]) Physical Therapy Assessment Impairments Impairments Activity Tolerance,Pain, Posture,ROM,Strength Goals Four Impairment posture Impairment forward head, rounded shoulders, protracted scapula, and IR shouders contributing to shoulder dysfunction Short Term Goal (STG) Patient to be instructed in postural contribution to shoulder dysfunction and in postural correction ex and activities STG Duration 08/11/22 Snf Goal (LTG) Patient will demonstrate improved posture at rest and with function for improved shoulder function with ADL's and recreational activities. LTG Duration 09/10/22 Three Impairment strength Impairment weakness posterior chain musculature Short Term Goal (STG) Patient will be instructed in HEP for purposes of strengthening posterior chain STG Duration 08/11/22 Snf Goal (LTG) Patient will be independnet and compliant with HEP and demonstrate 5/5 muscle strength left UE and posterior chain Two Impairment ROM Impairment unable reach overhead, out to side, and behind his back Airline Radio Operator Goal (LTG) Patient ROM will improve sufficient to reach overhead, out to the side, and behind his back to be able to return to performing daily tasks with his left UE LTG Duration 09/10/22 One Impairment activity tolerance Impairment patient unable to sleep through the night, reach behind his back for ADL's, and unable to fence Airline Radio Operator Goal (LTG) Patient will improve his left shoulder pain and function sufficient to allow him to sleep through the night, reach behind his back to perform ADL's, and will be able to return to fencing withough pain LTG Duration 09/10/22 Assessment Summary Assessment No pain with exercises, able to progress to fencing simulation with theraband. Fatigues quickly with prone exercises Physical Therapy Plan Frequency and Duration Frequency of Treatment 2x/Week Duration of treatment (weeks) 8 Plan of Care Start Date 07/11/22 Plan of Care End Date 09/10/22 Therapeutic Interventions Therapeutic Interventions Home Exercise Program,Manual Therapy,Patient/Caregiver Education,Self-Care/Home Management,Soft Tissue Mobilization,Taping, Therapeutic Activities, Therapeutic Exercises Modalities Cold Pack/Ice Massage,Electric Stimulation,Hot Packs, Infrared Therapy,Iontophoresis ,Ultrasound Next Visit Focus/Plan Next Visit Plan POC: Progress ther ex with emphasis on scapular mechanics , postural correction, and exercise in pain-free rom. Manual therapy for scapular mobility. Modalities PRN as needed.
--- NOTE | 2022-07-26 08:58 | PT.OTN ---
Current Diagnoses Adjustment disorder with depressed mood (07/26/22) Pain in left shoulder (07/26/22) Physical Therapy Treatment Note PT-OP-A Visit Information Start: 07/11/22 08:03 Freq: Status: Active Protocol: Document 07/26/22 08:20 SP (Rec: 07/26/22 09:02 SP [id number]) Out-Patient Physical Therapy Visit Information Visit Information Visit Type Treatment Note Visit Start Time 08:20 Visit Stop Time 08:58 Total Visit Minutes 38 Visit Number 5 Number of ESTHETICIAN AND MANAGER MEDICAL SPA Visits 1 Evaluation Information Evaluation Date 07/11/22 Precautions Precautions Mother recently PT-OP-B Current Condition Start: 07/11/22 08:03 Freq: Status: Active Protocol: Document 07/15/22 09:02 SAK (Rec: 07/15/22 09:45 SAK [id number]) Current Condition History of Current Condition Onset Date January 2022 Current Complaints left shoulder pain History of Current Condition right handed. Started to notice painful sleeping on left side and noticed having difficulty reaching behind back, out to side. Has stopped sleeping on side. Started doing some prior HEP: laying on foam roller, arm against wall turning away stretch, theraband exercises. Denies N/T. Is unable to do fencing which is his favorite recreational activity due to pain Prior Treatments and Tests prior x-ray showed mild OA AC and left shoulder PT-OP-C Subjective Start: 07/11/22 08:03 Freq: Status: Active Protocol: Document 07/26/22 08:20 SP (Rec: 07/26/22 09:02 SP [id number]) OP-PT Subjective Patient Comments Patient Comments Pt reports doing welll with HEP, achiness has lessened/not as frequent. PT-OP-J Posture/Palpation/Skin Start: 07/11/22 08:03 Freq: Status: Active Protocol: Document 07/11/22 08:12 SAK (Rec: 07/11/22 09:03 SAK [id number]) Posture Evaluation Position Sitting Head/C-Spine Posture Forward Head T-Spine Posture Increased Kyphosis Shoulder Posture (L) Rounded,(R) Rounded Scapula Posture (L) Protracted,(R) Protracted Arm Posture (L) Internally Rotated,(R) Internally Rotated Palpation Assessment Location left UT Palpation Findings Soft Tissue Tightness,Muscle Guarding,Tenderness,Trigger Point thoracic paraspinals Palpation Location left Palpation Findings Soft Tissue Tightness,Muscle Guarding left RC Palpation Findings Tenderness left AC Palpation Findings Tenderness left GH Palpation Findings Tenderness PT-OP-K Range of Motion Start: 07/11/22 08:03 Freq: Status: Active Protocol: Document 07/11/22 08:12 SAK (Rec: 07/11/22 09:03 SAK [id number]) Cervical Spine Range of Motion Cervical Spine Active Testing Position Sitting Comments WNL Shoulder Goniometric Range of Motion Shoulder Left Active Flexion 155 Extension 25 Abduction 160 External Rotation at 45 degrees 60 Abduction Internal Rotation Behind Back (text) lateral hip Right Shoulder ROM WFL Yes Testing Position Sitting Shoulder ROM Limitations Shoulder ROM Limitations Pain Elbow/Forearm Range of Motion Elbow/Forearm guerda Elbow/Forearm ROM WFL Yes PT-OP-Q Treatments Start: 07/11/22 08:03 Freq: Status: Active Protocol: Document 07/26/22 08:20 SP (Rec: 07/26/22 09:02 SP [id number]) Cardio Equipment Upper Body Ergometer (UBE) Duration (Minutes) 6 RPM 70 Seat Position 12 Height 3.5 Other good posturing Therapeutic Exercises Prone Exercises T Prone Exercise Name Ts, Is, Ys Side left Resistance AROM> 1# DB Equipment Used trialed over 55cm> 65 cm Tball - challenge pressure on abdomen>table Reps/Minutes 3 reps ball, 12 reps pause hold each rep, 5 reps 1# DB Comments good effort/little muscle tiring shakiness, pain free Sidelying Exercises open book Sidelying Exercise Name HEP reviewed Side left Reps/Minutes 5x Comments good form, ROM recovery Standing Exercises fencing sim Standing Exercise Name isotonic, eccentric Side left Resistance L2 Equipment Used (R forward lunge, L shld flex against resistance to eccentric extension ER) Reps/Minutes 10x Comments good form hor add Standing Exercise Name con/eccentric ABD and ADD: behind back- added to HEP Side left Resistance TB #1 Reps/Minutes x8 reps Comments good feedback active and painfree PT-OP-T Assessment and Plan Start: 07/11/22 08:03 Freq: Status: Active Protocol: Document 07/26/22 08:20 SP (Rec: 07/26/22 09:02 SP [id number]) Physical Therapy Assessment Goals Four Impairment posture Impairment forward head, rounded shoulders, protracted scapula, and IR shouders contributing to shoulder dysfunction Short Term Goal (STG) Patient to be instructed in postural contribution to shoulder dysfunction and in postural correction ex and activities 07/26/22: GOAL MET: pt reports more conscious of posture corrections at desk and no cuing today during HEP. STG Duration 08/11/22 GOAL MET 07/26/22 Senior Project Engineer Goal (LTG) Patient will demonstrate improved posture at rest and with function for improved shoulder function with ADL's and recreational activities. LTG Duration 09/10/22 Three Impairment strength Impairment weakness posterior chain musculature Short Term Goal (STG) Patient will be instructed in HEP for purposes of strengthening posterior chain 07/26/22: HEP prone Ts, Is, Ys added 1# DB today,painfree good effort. STG Duration 08/11/22 progressing 07/26/22 Detention Goal (LTG) Patient will be independnet and compliant with HEP and demonstrate 5/5 muscle strength left UE and posterior chain Two Impairment ROM Impairment unable reach overhead, out to side, and behind his back Senior Project Engineer Goal (LTG) Patient ROM will improve sufficient to reach overhead, out to the side, and behind his back to be able to return to performing daily tasks with his left UE LTG Duration 09/10/22 One Impairment activity tolerance Impairment patient unable to sleep through the night, reach behind his back for ADL's, and unable to fence Senior Project Engineer Goal (LTG) Patient will improve his left shoulder pain and function sufficient to allow him to sleep through the night, reach behind his back to perform ADL's, and will be able to return to fencing withough pain LTG Duration 09/10/22 Assessment Summary Assessment No pain and good effort with all exercises today, was able to tolerate increase resistance. Physical Therapy Plan Frequency and Duration Frequency of Treatment 2x/Week Duration of treatment (weeks) 8 Plan of Care Start Date 07/11/22 Plan of Care End Date 09/10/22 Therapeutic Interventions Therapeutic Interventions Home Exercise Program,Manual Therapy,Patient/Caregiver Education,Self-Care/Home Management,Soft Tissue Mobilization,Taping, Therapeutic Activities, Therapeutic Exercises Modalities Cold Pack/Ice Massage,Electric Stimulation,Hot Packs, Infrared Therapy,Iontophoresis ,Ultrasound Next Visit Focus/Plan Next Visit Plan POC: Progress ther ex with emphasis on scapular mechanics , postural correction, and exercise in pain-free rom. Manual therapy for scapular mobility. Modalities PRN as needed.
--- NOTE | 2022-07-29 08:11 | PT.OTN ---
Current Diagnoses Adjustment disorder with depressed mood (07/29/22) Pain in left shoulder (07/29/22) Physical Therapy Treatment Note PT-OP-A Visit Information Start: 07/11/22 08:03 Freq: Status: Active Protocol: Document 07/29/22 07:31 SP (Rec: 07/29/22 08:13 SP [id number]) Out-Patient Physical Therapy Visit Information Visit Information Visit Type Treatment Note Visit Start Time 07:31 Visit Stop Time 08:11 Total Visit Minutes 40 Visit Number 6 Number of MATERIALS COORDINATOR Visits 2 Evaluation Information Evaluation Date 07/11/22 Precautions Precautions Mother recently PT-OP-B Current Condition Start: 07/11/22 08:03 Freq: Status: Active Protocol: Document 07/15/22 09:02 SAK (Rec: 07/15/22 09:45 SAK [id number]) Current Condition History of Current Condition Onset Date January 2022 Current Complaints left shoulder pain History of Current Condition right handed. Started to notice painful sleeping on left side and noticed having difficulty reaching behind back, out to side. Has stopped sleeping on side. Started doing some prior HEP: laying on foam roller, arm against wall turning away stretch, theraband exercises. Denies N/T. 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 He reports feels this will be his last appt and doing well, feels confident with HEP and no problems. 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 PT-OP-J Posture/Palpation/Skin Start: 07/11/22 08:03 Freq: Status: Active Protocol: Document 07/11/22 08:12 SAK (Rec: 07/11/22 09:03 SAK [id number]) Posture Evaluation Position Sitting Head/C-Spine Posture Forward Head T-Spine Posture Increased Kyphosis Shoulder Posture (L) Rounded,(R) Rounded Scapula Posture (L) Protracted,(R) Protracted Arm Posture (L) Internally Rotated,(R) Internally Rotated Palpation Assessment Location left UT Palpation Findings Soft Tissue Tightness,Muscle Guarding,Tenderness,Trigger Point thoracic paraspinals Palpation Location left Palpation Findings Soft Tissue Tightness,Muscle Guarding left RC Palpation Findings Tenderness left AC Palpation Findings Tenderness left GH Palpation Findings Tenderness PT-OP-K Range of Motion Start: 07/11/22 08:03 Freq: Status: Active Protocol: Document 07/29/22 07:31 SP (Rec: 07/29/22 08:13 SP [id number]) Shoulder Goniometric Range of Motion Shoulder Left Active Flexion 160 Extension 25 Abduction 180 External Rotation at 45 degrees 60 Abduction External Rotation at 0 degrees Abduction 75 Internal Rotation Behind Back (text) T9 Comments L shld AROM standing: FF improved 5 deg (160) ABD gained 20 (180) ER 75 deg (gained 15 deg (45 deg) IR Improvement from lat hip to T9 PT-OP-Q Treatments Start: 07/11/22 08:03 Freq: Status: Active Protocol: Document 07/29/22 07:31 SP (Rec: 07/29/22 08:13 SP [id number]) Cardio Equipment Upper Body Ergometer (UBE) Duration (Minutes) 5 RPM 70 Seat Position 12 Height 3.5 Other good posturing Therapeutic Exercises Standing Exercises squat rows Standing Exercise Name added to HEP Side bilateral Resistance cable #30 plate Reps/Minutes x10 Comments cued form Ys off wall Standing Exercise Name added to HEP Resistance TB #3 Reps/Minutes x10 Comments good form wall walking Standing Exercise Name added to HEP Resistance TB #3 Reps/Minutes 15 ft x2 laps Comments painfree, good scap posturing eccentric throwing Standing Exercise Name added to HEP, choppping wood Side left Resistance Tb#3 Reps/Minutes 2x5 reps Comments painfree body blade Standing Exercise Name fwd, IV/EV, punch down, punch OH Reps/Minutes 30 each direction Comments good response tiring and painfree fencing sim Standing Exercise Name isotonic, eccentric Side left Resistance L3 Equipment Used (R forward lunge, L shld flex against resistance to eccentric extension ER) Reps/Minutes 10x Comments good form hor add Standing Exercise Name con/eccentric ABD and ADD: behind back- added to HEP Side left Resistance TB #3 Reps/Minutes x8 reps Comments good feedback active and painfree shoulder ext Standing Exercise Name HEP reviewed and D1 ext Resistance Tb #3 Reps/Minutes x15 Comments good feedback scap mobility with stab doorway stretch Standing Exercise Name stretching shlds: pec doorway, across body, IR w/ towel Side left Reps/Minutes 30 each Comments good feedback response PT-OP-T Assessment and Plan Start: 07/11/22 08:03 Freq: Status: Active Protocol: Document 07/29/22 07:31 SP (Rec: 07/29/22 08:13 SP [id number]) Physical Therapy Assessment Goals Four Impairment posture Impairment forward head, rounded shoulders, protracted scapula, and IR shouders contributing to shoulder dysfunction Short Term Goal (STG) Patient to be instructed in postural contribution to shoulder dysfunction and in postural correction ex and activities 07/26/22: GOAL MET: pt reports more conscious of posture corrections at desk and no cuing today during HEP. STG Duration 08/11/22 GOAL MET 07/26/22 Yoga Teacher Goal (LTG) Patient will demonstrate improved posture at rest and with function for improved shoulder function with ADL's and recreational activities. 07/29/22: GOAL MET: states and demonstrates good form, mobility with stab, pain free. LTG Duration 09/10/22 GOAL MET 07/29/22 Three Impairment strength Impairment weakness posterior chain musculature Short Term Goal (STG) Patient will be instructed in HEP for purposes of strengthening posterior chain 07/26/22: HEP prone Ts, Is, Ys added 1# DB today 07/29/22: added wall walking TB #3, Ys off wall with #3 TB, eccentric throwing/catching with TB, squat rows, stretching review. STG Duration 08/11/22 GOAL MET 07/29/22 Half-Way Goal (LTG) Patient will be independnet and compliant with HEP and demonstrate 5/5 muscle strength left UE and posterior chain 07/29/22: GOAL MET: 5/5 MMT L shld. Two Impairment ROM Impairment unable reach overhead, out to side, and behind his back Yoga Teacher Goal (LTG) Patient ROM will improve sufficient to reach overhead, out to the side, and behind his back to be able to return to performing daily tasks with his left UE 07/29/22: GOAL MET: Pt able to reach behind back and OH with 10# DB painfree and rom WNL. LTG Duration 09/10/22 GOAL MET 07/29/22 One Impairment activity tolerance Impairment patient unable to sleep through the night, reach behind his back for ADL's, and unable to fence Half-Way Goal (LTG) Patient will improve his left shoulder pain and function sufficient to allow him to sleep through the night, reach behind his back to perform ADL's, and will be able to return to fencing withough pain 07/29/22: GOAL MET: stated not much problems sleeping since started PT. LTG Duration 09/10/22 GOAL MET 07/29/22 Progress Towards Goals Progress Towards Goals Progressing Toward Goals Progress Comments Met all goals. L shld AROM standing: FF improved 5 deg (160) ABD gained 20 (180) ER 75 deg (gained 15 deg (45 deg) IR Improvement from lat hip to T9 Assessment Summary Assessment Pt made significiant progress, painfree ROM and throughout all ther ex, good self corrections to HEP posturing and how carryover into daily lift trying be conscious of looking down reading books. Physical Therapy Plan Frequency and Duration Frequency of Treatment 2x/Week Duration of treatment (weeks) 8 Plan of Care Start Date 07/11/22 Plan of Care End Date 09/10/22 Therapeutic Interventions Therapeutic Interventions Home Exercise Program,Manual Therapy,Patient/Caregiver Education,Self-Care/Home Management,Soft Tissue Mobilization,Taping, Therapeutic Activities, Therapeutic Exercises Modalities Cold Pack/Ice Massage,Electric Stimulation,Hot Packs, Infrared Therapy,Iontophoresis ,Ultrasound Next Visit Focus/Plan Next Note Type Discharge Summary Next Visit Plan PT to complete DC.
--- NOTE | 2022-07-29 16:54 | PT.OPDS ---
Current Diagnoses Adjustment disorder with depressed mood (07/29/22) Pain in left shoulder (07/29/22) Visit Care Team Role Provider Type Lauro Edmond DO Attending Provider Physician Family Provider Primary Care Provider Referring Provider Specialty: Family Practice Address: [address] [place] [address], [address], [facility] Email: [email or web address] Visit Number Visit Number 6 Discharge Summary PT-OP-B Current Condition Start: 07/11/22 08:03 Freq: Status: Active Protocol: Document 07/15/22 09:02 SAK (Rec: 07/15/22 09:45 SAK [id number]) Current Condition History of Current Condition Onset Date January 2022 Current Complaints left shoulder pain History of Current Condition right handed. Started to notice painful sleeping on left side and noticed having difficulty reaching behind back, out to side. Has stopped sleeping on side. Started doing some prior HEP: laying on foam roller, arm against wall turning away stretch, theraband exercises. Denies N/T. 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 He reports feels this will be his last appt and doing well, feels confident with HEP and no problems. 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 PT-OP-J Posture/Palpation/Skin Start: 07/11/22 08:03 Freq: Status: Active Protocol: Document 07/11/22 08:12 SAK (Rec: 07/11/22 09:03 SAK [id number]) Posture Evaluation Position Sitting Head/C-Spine Posture Forward Head T-Spine Posture Increased Kyphosis Shoulder Posture (L) Rounded,(R) Rounded Scapula Posture (L) Protracted,(R) Protracted Arm Posture (L) Internally Rotated,(R) Internally Rotated Palpation Assessment Location left UT Palpation Findings Soft Tissue Tightness,Muscle Guarding,Tenderness,Trigger Point thoracic paraspinals Palpation Location left Palpation Findings Soft Tissue Tightness,Muscle Guarding left RC Palpation Findings Tenderness left AC Palpation Findings Tenderness left GH Palpation Findings Tenderness PT-OP-K Range of Motion Start: 07/11/22 08:03 Freq: Status: Active Protocol: Document 07/29/22 07:31 SP (Rec: 07/29/22 08:13 SP [id number]) Shoulder Goniometric Range of Motion Shoulder Left Active Flexion 160 Extension 25 Abduction 180 External Rotation at 45 degrees 60 Abduction External Rotation at 0 degrees Abduction 75 Internal Rotation Behind Back (text) T9 Comments L shld AROM standing: FF improved 5 deg (160) ABD gained 20 (180) ER 75 deg (gained 15 deg (45 deg) IR Improvement from lat hip to T9 PT-OP-T Assessment and Plan Start: 07/11/22 08:03 Freq: Status: Active Protocol: Document 07/30/22 16:54 SHANE (Rec: 07/30/22 16:54 [facility] [id number]) Physical Therapy Plan Discharge Physical Therapy Discharge Reasons Goals Met
== END 2022-08-02 08:50 | disposition home or self-care (01) ==
LOC: PHYS 07:30
PROVIDERS: Absent Provider Family Medicine; Family Provider Family Medicine; PCP Family Medicine; Referring Provider Family Medicine; Visit Provider Family Medicine
DX: M25.512 Pain in left shoulder (principal); F43.21 Adjustment disorder with depressed mood
CPT/HCPCS: 97110; 97140; 97162; 97535

== ENCOUNTER → 2023-01-03 06:56 | Outpatient (CLI) | payer OTHER, MEDICAID, SELFPAY ==
[2023-01-03 09:20] LABS: Hemoglobin A1C% w Est Avg Glu 5.7 % (4.0-6.0)
== END ==
PROVIDERS: Family Provider Family Medicine; PCP Family Medicine; Referring Provider Family Medicine; Visit Provider Family Medicine
DX: R73.01 Impaired fasting glucose (principal)
CPT/HCPCS: 36415; 83036

== ENCOUNTER → 2023-07-08 08:32 | Outpatient (CLI) | payer OTHER, MEDICAID, SELFPAY ==
[2023-07-08 11:12] LABS: Alanine Aminotransferase 110 IU/L (<50); Albumin 4.4 g/dL (3.5-5.0); Albumin Globulin Ratio 1.5 (1.0-2.8); Alkaline Phosphatase 73 U/L (38-126); Aspartate Aminotransferase 65 IU/L (17-59); BUN Creatinine Ratio 19.8 (6-22); Bilirubin Total 0.8 mg/dL (0.2-1.3); Blood Urea Nitrogen 18 mg/dL (9-20); Calcium 9.3 mg/dL (8.4-10.2); Carbon Dioxide 26 mmol/L (22-32); Chloride 104 mmol/L (98-107); Cholesterol 161 mg/dL (140-199); Estimated Glomerular Filt Rate > 60 mL/min (>60); Glucose 97 mg/dL (80-110); HDL Cholesterol 44 mg/dL (40-60); HEMOLYSIS < 15 (0-50); LDL Cholesterol Calculated 91 mg/dL (<100); Sodium 137 mmol/L (137-145); Total Protein 7.4 g/dL (6.3-8.2); Triglycerides 132 mg/dL (35-150)
[2023-07-08 11:13] LABS: Potassium 4.4 mmol/L (3.4-5.1)
[2023-07-08 11:26] LABS: TSH w/ Reflex to FT4 1.44 uIU/mL (0.47-4.68)
[2023-07-08 11:47] LABS: Prostate Specific Antigen Scrn 0.847 ng/mL (0.1-4.0)
[2023-07-08 20:58] LABS: HIV 1 & 2 Ab/Ag 4th Gen Combo NEGATIVE (NEGATIVE)
[2023-07-10 16:25] LABS: Hep C Virus Ab w/Reflex Quant NEGATIVE s/c (NEGATIVE)
== END ==
PROVIDERS: Family Provider Family Medicine; PCP Family Medicine; Referring Provider Family Medicine; Visit Provider Family Medicine
DX: Z12.5 Encounter for screening for malignant neoplasm of prostate (principal); E78.5 Hyperlipidemia, unspecified; R73.01 Impaired fasting glucose; F32.0 Major depressive disorder, single episode, mild; Z11.4 Encounter for screening for human immunodeficiency virus [HIV]; Z11.59 Encounter for screening for other viral diseases; I10 Essential (primary) hypertension
CPT/HCPCS: 36415; 80053; 80061; 84443; 86803; 87389; G0103

== ENCOUNTER → 2023-08-29 08:13 | Outpatient (CLI) | payer OTHER, MEDICAID, SELFPAY ==
[2023-08-29 09:25] LABS: HEMOLYSIS < 15 (0-50); Iron 88 ug/dL (49-181)
[2023-08-29 09:31] LABS: Alanine Aminotransferase 86 IU/L (<50); Albumin 4.2 g/dL (3.5-5.0); Albumin Globulin Ratio 1.6 (1.0-2.8); Alkaline Phosphatase 89 U/L (38-126); Aspartate Aminotransferase 49 IU/L (17-59); Bilirubin Total 0.6 mg/dL (0.2-1.3); Bilirubin Unconjugated 0.5 mg/dL (0.0-1.1); Creatine Kinase 91 U/L (55-170); Globulin 2.7 g/dL (1.7-4.1); HEMOLYSIS < 15 (0-50); Total Protein 6.9 g/dL (6.3-8.2)
[2023-08-29 09:41] LABS: Percent Iron Saturation 33 % (20-50); Total Iron Binding Capacity 266 ug/dL (261-462); Transferrin 196 mg/dL (206-381)
[2023-08-29 10:00] LABS: Hepatitis B Surface Antigen NEGATIVE s/c (NEGATIVE)
== END ==
PROVIDERS: Family Provider Family Medicine; PCP Family Medicine; Referring Provider Family Medicine; Visit Provider Family Medicine
DX: R79.89 Other specified abnormal findings of blood chemistry (principal)
CPT/HCPCS: 36415; 80076; 82390; 82550; 83540; 83550; 87340

== ENCOUNTER → 2023-09-02 08:14 | Outpatient (CLI) | payer OTHER, MEDICAID, SELFPAY ==
--- NOTE | 2023-09-02 08:15 | DI.RAD.S_ITS ---
PROCEDURE: XR CHEST 2V INDICATIONS: cough x 1 yr TECHNIQUE: 2 views of the chest were acquired. COMPARISON: None. FINDINGS: Surgical changes and devices: None. Lungs and pleura: Lungs are clear. No pleural effusions or pneumothorax. Mediastinum: Mediastinal contours are normal. Heart size is normal. Bones and chest wall: No suspicious bony abnormalities. Soft tissues appear unremarkable. IMPRESSION: No acute cardiopulmonary pathology. Dictated by: Pascual Roa M.D. on 09/02/2023 at 11:30 Approved by: Pascual Roa M.D. on 09/02/2023 at 11:30
== END ==
PROVIDERS: Family Provider Family Medicine; PCP Family Medicine; Referring Provider Family Medicine; Visit Provider Family Medicine
DX: R05.3 Chronic cough (principal); F32.9 Major depressive disorder, single episode, unspecified; H57.89 Other specified disorders of eye and adnexa
CPT/HCPCS: 71046

== ENCOUNTER → 2024-01-27 08:20 | Outpatient (CLI) | payer OTHER, MEDICAID, SELFPAY ==
[2024-01-27 10:50] LABS: Hemoglobin A1C% w Est Avg Glu 5.8 % (4.0-6.0)
== END ==
PROVIDERS: Family Provider Family Medicine; PCP Family Medicine; Referring Provider Family Medicine; Visit Provider Family Medicine
DX: I10 Essential (primary) hypertension (principal)
CPT/HCPCS: 36415; 83036

== ENCOUNTER 2024-04-08 08:34 | Emergency (ER) | payer OTHER, MEDICAID, SELFPAY ==
[2024-04-08] VITALS (12 sets, daily range): BP systolic 130–155; BP diastolic 67–81; PULSE 62–78; RESP 12–17; TEMP 36.6; O2SAT 95–98; BMI 42.5
--- NOTE | 2024-04-08 08:45 | DI.RAD.S_ITS ---
PROCEDURE: XR CHEST 1V INDICATIONS: chest pain TECHNIQUE: One view of the chest was acquired. COMPARISON: [facility], CR, XR CHEST 2V, 09/02/2023, 8:15. FINDINGS: Surgical changes and devices: None. Lungs and pleura: Lungs are clear considering reduced inspiration. No pleural effusions or pneumothorax. Mediastinum: Mediastinal contours appear normal. Heart size is normal. Bones and chest wall: No suspicious bony lesions. Overlying soft tissues appear unremarkable. IMPRESSION: No acute cardiopulmonary abnormality is seen considering reduced it region. Dictated by: Cassius Marte M.D. on 04/08/2024 at 9:04 Approved by: Cassius Marte M.D. on 04/08/2024 at 9:05
--- NOTE | 2024-04-08 08:45 | EKG_ITS ---
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
--- NOTE | 2024-04-08 08:50 | ED.CHESTPAIN ---
HPI - Chest Pain General Chief Complaint: Chest Pain Stated Complaint: sent by pcp for cardio exam Time Seen by Provider: 04/08/24 08:37 Source: patient Mode of arrival: Family Vehicle Limitations: no limitations History of Present Illness HPI narrative: 58-year-old gentleman with a history of hypertension, major depression, obesity hyperlipidemia, who sent a message through the portal to his primary care physician today stating that over the last few months he has had chest tightness, difficulty swallowing, fast heartbeat, hives, itching, skin rash, muscle cramps, pain, stiffness, swelling and weakness, puffiness or swelling of the eyelids around the face and unusual tiredness and fatigue. Received a call back from the office suggesting that he go to the emergency department. On further questioning none of these symptoms have been severe enough to cause him to stop any current activity. He also notes that he basically sits and reads all day and is quite inactive. Regarding his chest pain he describes it on the left side of his chest posterior thorax into the shoulder and arm. He needs to refer to his when asked how frequently this bothers him. His also notes that he has had chronic cough for a number of months. Related Data Previous Rx's Medication Instructions Recorded blood sugar diagnostic (Accu-Chek #100 ea 04/17/22 Guide test strips) lancets (Accu-Chek Softclix #100 ea 04/17/22 Lancets) blood-glucose meter ([facility] #1 ea 04/19/22 Blood Glucose Monitor) triamcinolone acetonide 0.1 % 1 applic topical BID PRN rash #30 06/04/22 topical cream grams fluoxetine 40 mg capsule (Prozac) 40 mg PO DAILY #90 caps 08/05/23 lisinopril 20 mg tablet 20 mg PO DAILY #90 tabs 08/11/23 azelastine 137 mcg (0.1 %) nasal 2 spray intranasal BID #30 mL 09/02/23 spray cetirizine 10 mg tablet (Zyrtec) 10 mg PO DAILY PRN allergy 12/11/23 symptoms #90 tabs atorvastatin 20 mg tablet (Lipitor) 20 mg PO BEDTIME cholesterol #90 01/01/24 tabs fluticasone propionate 50 2 spray intranasal DAILY PRN nasal 01/27/24 mcg/actuation nasal congestion #16 grams spray,suspension (Flonase Allergy Relief) metformin 500 mg tablet,extended 1,000 mg (2 x 500 mg) PO DAILY 01/27/24 release 24 hr #180 tabs Allergies Allergy/AdvReac Type Severity Reaction Status Date / Time No Known Drug Allergies Allergy Verified 04/08/24 09:25 Review of Systems Review of Systems Narrative: Essentially completely positive review of systems Patient History Medical History (Updated 04/08/24 @ 13:40 by Elsie Frankel MD) KIRBY (obstructive sleep apnea) Major depression Grieving Hyperlipidemia IFG (impaired fasting glucose) Chicken pox (~1971) Morbid obesity Benign essential HTN Carpal tunnel syndrome on both sides (~2007) Seizure Back pain Surgical History History of carpal tunnel release of both wrists Family History (Updated 04/09/22 @ 21:39 by Nikole Arredondo) Father History of heart disease Mother Living in assisted living Breast cancer Hyperlipidemia Hypertension Stroke Brother Hypertension Hyperlipidemia Stroke Mental health problem Sister Colon cancer Grandfather Brain cancer Grandmother Hyperlipidemia Hypertension Social History Smoking Status: Never smoker second hand exposure: No alcohol intake: former substance use type: does not use Smoking Status: Never smoker Exam Initial Vital Signs Initial Vital Signs: Vital Signs Pulse Rate 63 04/08/24 08:44 Respiratory Rate 12 04/08/24 08:44 Blood Pressure 143/80 H 04/08/24 08:44 Pulse Oximetry 98 04/08/24 08:44 Oxygen Delivery Method Room Air 04/08/24 08:44 General: Chronically ill-appearing, refers to his for answers to multiple questions, he is cooperative, speech is fluent HEENT: Moist mucous membranes, normal sclera with reactive pupils, Neck: No JVD, no midline cervical pain Respiratory: Lungs are clear to auscultation, no wheezing no rales no rhonchi. Full and symmetrical air movement. His chest pain is reproduced with deep breathing Cardiac: Regular rate and rhythm no murmurs no bruits Abdomen: Soft, obese, nontender, good bowel tones, no flank pain Skin: Warm and dry, no rashes Neurologic: Grossly neurologically intact with no obvious asymmetries or abnormalities Extremities: No trauma, well perfused, no lower extremity edema Psych: Cooperative, flat affect, poor eye contact, distractible Course Orders Ordered: ED Orders 04/08/24 08:45 XR chest 1V Stat EKG-12 Lead Stat 04/08/24 08:51 Complete Blood Count AUTO DIFF Stat 04/08/24 09:25 Comprehensive Metabolic Panel Stat Lipase Stat Magnesium Stat NT-proBNP (BNP-Adult 18+) Stat PTT Partial Thromboplastin Clint Stat Prothrombin Time INR Stat Troponin & CK Cardiac Panel Stat Discontinued Medications Aspirin (Aspirin 81 Mg Chew Tab) 324 mg PO NOW ONE Stop: 04/08/24 08:46 Last Admin: 04/08/24 09:30 Dose: Not Given Documented By: RICARDO Vital Signs Vital signs: Vital Signs - 8 hr 04/08/24 08:44 04/08/24 08:44 04/08/24 08:46 Temperature 97.9 F Pulse Rate 63 62 Respiratory Rate 12 16 Blood Pressure 143/80 H 143/80 H Pulse Oximetry 98 97 Oxygen Delivery Method Room Air Room Air 04/08/24 09:00 04/08/24 09:00 04/08/24 09:30 Temperature Pulse Rate 64 Respiratory Rate 13 Blood Pressure 135/72 130/67 Pulse Oximetry 97 Oxygen Delivery Method 04/08/24 09:30 04/08/24 10:00 04/08/24 10:00 Temperature Pulse Rate 63 64 Respiratory Rate 14 Blood Pressure 136/76 Pulse Oximetry 98 98 Oxygen Delivery Method 04/08/24 10:30 04/08/24 10:30 04/08/24 11:00 Temperature Pulse Rate 67 Respiratory Rate 17 Blood Pressure 150/77 H 142/80 H Pulse Oximetry 97 Oxygen Delivery Method Room Air 04/08/24 11:00 04/08/24 11:30 04/08/24 11:30 Temperature Pulse Rate 69 75 Respiratory Rate 14 17 Blood Pressure 150/78 H Pulse Oximetry 97 95 Oxygen Delivery Method 04/08/24 12:00 04/08/24 12:00 04/08/24 12:30 Temperature Pulse Rate 64 Respiratory Rate 13 Blood Pressure 145/74 H 149/80 H Pulse Oximetry 97 Oxygen Delivery Method Room Air 04/08/24 12:30 04/08/24 13:00 04/08/24 13:00 Temperature Pulse Rate 78 62 Respiratory Rate 15 12 Blood Pressure 148/73 H Pulse Oximetry 96 97 Oxygen Delivery Method Room Air MDM - Chest Pain Lab Data 04/08/24 08:51 04/08/24 09:25 Labs: Lab Results 12/05/24 12/05/24 Range/Units 08:51 09:25 WBC 7.2 (4.5-11.0) X10^3/uL RBC 5.32 (4.5-5.9) X10^6/uL Hgb 15.6 (13.5-17.5) g/dL Hct 46.8 (41-53) % MCV 88.0 (80-100) fL MCH 29.4 (26-34) PG MCHC 33.4 (30-36) % RDW 13.8 (11.6-14.8) % Plt Count 204 (150-400) X10^3/uL Neut % (Auto) 57.4 (50-75) % Lymph % (Auto) 28.1 (25-40) % [place] % (Auto) 10.4 (3-14) % Eos % (Auto) 3.5 (2-4) % Baso % (Auto) 0.6 (0-2) % Neut # (Auto) 4100 (6783-9826) /uL Lymph # (Auto) 2000 (0910-4529) /uL [place] # (Auto) 800 (0-900) /uL Eos # (Auto) 300 (0-450) /uL Baso # (Auto) 0 (0-100) /uL PT 11.6 (9.4-12.5) SECONDS INR 1.0 (0.9-1.3) APTT 38 H (25.1-36.5) SECONDS Sodium 138 (137-145) mmol/L Potassium 4.6 (3.4-5.1) mmol/L Chloride 105 (98-107) mmol/L Carbon Dioxide 28 (22-32) mmol/L BUN 16 (9-20) mg/dL Creatinine 0.98 (0.66-1.25) mg/dL Estimated GFR > 60 (>60) mL/min BUN/Creatinine Ratio 16.3 (6-22) Glucose 112 H (80-110) mg/dL Calcium 9.0 (8.4-10.2) mg/dL Magnesium 2.2 (1.6-2.3) mg/dL Total Bilirubin 0.7 (0.2-1.3) mg/dL AST 46 (17-59) IU/L ALT 53 H (<50) IU/L Alkaline Phosphatase 80 (38-126) U/L Total Creatine Kinase 123 (55-170) U/L Troponin I < 0.012 (0.01-0.034) ng/mL NT-Pro-B Natriuret Pep < 20 (<125) pg/mL Total Protein 7.1 (6.3-8.2) g/dL Albumin 4.2 (3.5-5.0) g/dL Globulin 2.9 (1.7-4.1) g/dL Albumin/Globulin Ratio 1.4 (1.0-2.8) Lipase 495 H (23-300) U/L MDM Narrative Medical decision making narrative: CC: Chest pain worse with deep breathing and a litany of other complaints all ongoing for a number of months Complicating co-morbidities: Early diabetes, hypertension, depression, hyperlipidemia, chronic pain Data collected from: patient, Medical records reviewed: Primary care notes from January 26 December 10 and September 01 are all reviewed Differential considered: Incompletely treated depression, musculoskeletal pain, pleurisy, pathology within from chronic cough, PE and acute coronary syndrome or felt to be less likely Exam documented above, pertinent findings include: Pain is reproduced with deep breathing remaining exam is essentially benign aside from his very flat affect and dramatic list of complaints Lab Test results independently reviewed as above. Pertinent findings: CBC is unremarkable, no anemia no leukocytosis Chemistries are reassuring Troponin is undetectable ProBNP is undetectable Lipase is slightly elevated at 495 Independently reviewed EKG: Sinus rhythm at a rate of 64, no acute ischemic change Imaging studies independently reviewed: Chest x-ray shows no acute abnormalities, no cardiomegaly Discussion: 58-year-old gentleman presents with left-sided chest pain worse with deep breathing along with multitude of other complaints many of which have been present for the last 3 months. Workup is unremarkable. I suspect that the chest pain is musculoskeletal and shared that with the patient. Recommended ibuprofen and Tylenol. Questions were answered, complete workup and findings reviewed. He is safe for discharge Discharge Plan Departure Patient Disposition: Home Clinical Impression: Chest pain Qualifiers: Chest pain type: chest pain on breathing Qualified Code(s): R07.1 - Chest pain on breathing Instructions: DI for Atypical Chest Pain, DI for Musculoskeletal Pain Activity Restrictions/Additional Instructions: Thank you for coming in today With a workup done today I did not find evidence of heart attack, heart failure, any lung abnormalities based on a normal chest x-ray. No sign of a heart attack based on EKG and lab work. Liver function, kidney function and electrolytes are all appropriate. Given the fact that you are having pain with deep breathing I suspect that the left-sided chest pain is musculoskeletal. Using 400 mg of ibuprofen (2 [id number] pills) and 1 Tylenol every 6 hours can be very helpful in controlling pain. I would recommend that you follow up with your primary care physician. In the absence of other obvious abnormalities, with his many complaints as you have being more aggressive with treating your depression might actually help some of the symptoms. Prescriptions: No Action (DME) blood-glucose meter [[facility] Blood Glucose Monitor] Misc See Rx Instructions .Route Qty: 1 0RF Rx Instructions: Use to check blood sugars once daily- True Metrix brand lisinopril 20 mg tablet 20 mg PO DAILY Qty: 90 3RF atorvastatin [Lipitor] 20 mg tablet 20 mg PO BEDTIME Qty: 90 3RF triamcinolone acetonide 0.1 % cream 1 applic topical BID PRN (Reason: rash) Qty: 30 8RF azelastine 137 mcg (0.1 %) aerosol,spray 2 spray intranasal BID Qty: 30 11RF Rx Instructions: administer into each nostril (DME) lancets [Accu-Chek Softclix Lancets] Misc See Rx Instructions .Route Qty: 100 3RF Rx Instructions: As directed, check blood sugars once daily as needed (DME) Accu-Chek Guide test strips Strip See Rx Instructions .Route Qty: 100 3RF Rx Instructions: As directed, test once daily as needed fluoxetine [Prozac] 40 mg capsule 40 mg PO DAILY Qty: 90 3RF metformin 500 mg tablet extended release 24 hr 1,000 mg PO DAILY Qty: 180 3RF fluticasone propionate [Flonase Allergy Relief] 50 mcg/actuation spray,suspension 2 spray intranasal DAILY PRN (Reason: nasal congestion) Qty: 16 11RF Rx Instructions: administer into each nostril cetirizine [Zyrtec] 10 mg tablet 10 mg PO DAILY PRN (Reason: allergy symptoms) Qty: 90 3RF Referrals: Lauro Edmond DO [Primary Care Provider] - Stand Alone Forms: Patient Portal/API/Survey
[2024-04-08 09:04] LABS: Add Manual Diff / Slide Review NO; Basophils Absolute Auto 0 /uL (0-100); Basophils Percent Auto 0.6 % (0-2); Eosinophils Absolute Auto 300 /uL (0-450); Eosinophils Percent Auto 3.5 % (2-4); Hematocrit 46.8 % (41-53); Hemoglobin 15.6 g/dL (13.5-17.5); Lymphocytes Absolute Auto 2000 /uL (1100-4500); Lymphocytes Percent Auto 28.1 % (25-40); Mean Corpuscular HGB Conc 33.4 % (30-36); Mean Corpuscular Hemoglobin 29.4 PG (26-34); Monocytes Absolute Auto 800 /uL (0-900); Monocytes Percent Auto 10.4 % (3-14); Neutrophils Absolute Auto 4100 /uL (1500-7000); Neutrophils Percent Auto 57.4 % (50-75); Platelet Count 204 X10^3/uL (150-400); Red Blood Cell Count 5.32 X10^6/uL (4.5-5.9); Red Cell Distribution Width 13.8 % (11.6-14.8); White Blood Cell Count 7.2 X10^3/uL (4.5-11.0)
[2024-04-08 10:01] LABS: PTT Partial Thromboplastin Tim 38 SECONDS (25.1-36.5); Prothrombin Time 11.6 SECONDS (9.4-12.5)
[2024-04-08 11:07] LABS: Alanine Aminotransferase 53 IU/L (<50); Albumin 4.2 g/dL (3.5-5.0); Albumin Globulin Ratio 1.4 (1.0-2.8); Alkaline Phosphatase 80 U/L (38-126); Aspartate Aminotransferase 46 IU/L (17-59); BUN Creatinine Ratio 16.3 (6-22); Bilirubin Total 0.7 mg/dL (0.2-1.3); Blood Urea Nitrogen 16 mg/dL (9-20); Carbon Dioxide 28 mmol/L (22-32); Chloride 105 mmol/L (98-107); Creatine Kinase 123 U/L (55-170); Estimated Glomerular Filt Rate > 60 mL/min (>60); Globulin 2.9 g/dL (1.7-4.1); Glucose 112 mg/dL (80-110); HEMOLYSIS < 15 (0-50); Lipase 495 U/L (23-300); Magnesium 2.2 mg/dL (1.6-2.3); Potassium 4.6 mmol/L (3.4-5.1); Sodium 138 mmol/L (137-145); Total Protein 7.1 g/dL (6.3-8.2)
[2024-04-08 11:17] LABS: NT-proBNP (BNP-Adult 18+) < 20 pg/mL (<125); Troponin I < 0.012 ng/mL (0.01-0.034)
== END 2024-04-08 13:52 | disposition home or self-care (01) ==
PROVIDERS: Emergency Provider Emergency Medicine; Family Provider Family Medicine; PCP Family Medicine
DX: R07.1 Chest pain on breathing (principal); R79.89 Other specified abnormal findings of blood chemistry
CPT/HCPCS: 36415; 71045; 80053; 82550; 83690; 83735; 83880; 84484; 85025; 85610; 85730; 93005; 93010; 99284

== ENCOUNTER → 2024-07-26 09:18 | Outpatient (CLI) | payer OTHER, SELFPAY ==
[2024-07-26 10:54] LABS: Hemoglobin A1C% w Est Avg Glu 5.8 % (4.0-6.0)
== END ==
PROVIDERS: Family Provider Family Medicine; PCP Family Medicine; Referring Provider Family Medicine; Visit Provider Family Medicine
DX: R73.01 Impaired fasting glucose (principal); E66.01 Morbid (severe) obesity due to excess calories; R05.9 Cough, unspecified
CPT/HCPCS: 36415; 83036

== ENCOUNTER → 2025-01-14 09:02 | Outpatient (CLI) | payer OTHER, SELFPAY | PROVIDERS: Family Provider Family Medicine; PCP Family Medicine; Visit Provider Family Medicine | DX: R39.89 Other symptoms and signs involving the genitourinary system (principal); R86.8 Other abnormal findings in specimens from male genital organs; E78.49 Other hyperlipidemia; E66.01 Morbid (severe) obesity due to excess calories; I10 Essential (primary) hypertension; R73.01 Impaired fasting glucose | CPT/HCPCS: 87086 ==

== ENCOUNTER → 2025-02-10 06:47 | Outpatient (CLI) | payer OTHER, SELFPAY ==
[2025-02-10 08:10] LABS: Hemoglobin A1C% w Est Avg Glu 5.9 % (4.0-6.0)
[2025-02-10 08:21] LABS: Cholesterol 151 mg/dL (140-199); HDL Cholesterol 53 mg/dL (40-60); Triglycerides 107 mg/dL (35-150)
== END ==
PROVIDERS: Family Provider Family Medicine; PCP Family Medicine; Referring Provider Family Medicine; Visit Provider Family Medicine
DX: R73.01 Impaired fasting glucose (principal); E78.49 Other hyperlipidemia; E66.01 Morbid (severe) obesity due to excess calories; Z12.5 Encounter for screening for malignant neoplasm of prostate; I10 Essential (primary) hypertension
CPT/HCPCS: 36415; 80061; 83036; G0103